=== PATIENT | male | born 1940 | race Caucasian/White ===

== ENCOUNTER 2016-11-25 16:38 | Emergency (ER) | payer MEDICARE, BC ==
[2016-11-25] MEDS ORDERED: SODIUM CHLORIDE 0.9% 1,000 ML IV STA (17:20)
[2016-11-25] MEDS ORDERED: SODIUM CHLORIDE 0.9% 500 ML IV STA (17:20)
[2016-11-25] MEDS ORDERED: MECLIZINE 12.5 MG TAB PO STA (17:20)
[2016-11-25 17:37] LABS: Basophils # (A) 0.1 k/uL (0-0.2); Basophils % (A) 1 %; CH 32.7; CHCM 34.4; Eosinophils # (A) 0.2 k/uL (0-0.7); Eosinophils % (A) 3 %; HCT 41.5 % (39.0-53.0); HDW 2.27; Luc # (Auto) 0.25; Luc % (Auto) 4; Lymphocytes # (A) 1.9 k/uL (1.0-4.8); Lymphocytes % (A) 34 %; MCH 32.3 pg (25.0-35.0); MCHC 33.8 g/dL (31.0-37.0); MCV 95.5 fL (80.0-100.0); Mean Platelet Volume 8.4; Monocytes # (A) 0.4 k/uL (0-1.0); Monocytes % (A) 7 %; Neutrophils # (A) 2.8 k/uL (1.3-7.7); Neutrophils % (A) 50 %; RBC 4.35 m/uL (4.30-5.90); RDW 12.6 % (11.5-15.5); WBC 5.6 k/uL (3.8-10.6); WBC (Perox) 5.64
[2016-11-25 17:50] LABS: ALT 35 U/L (21-72); AST 26 U/L (17-59); Alkaline Phosphatase 72 U/L (38-126); Anion Gap 13 mmol/L; Blood Urea Nitrogen 22 mg/dL (9-20); Calcium 9.5 mg/dL (8.4-10.2); Carbon Dioxide 20 mmol/L (22-30); Chloride 109 mmol/L (98-107); Glucose 111 mg/dL (74-99); Non-African American GFR(MDRD) >60 (>60 ml/min/1.73 sqM); Potassium 3.8 mmol/L (3.5-5.1); Sodium 142 mmol/L (137-145); Total Bilirubin 0.6 mg/dL (0.2-1.3); Total Protein 7.1 g/dL (6.3-8.2)
--- NOTE | 2016-11-25 18:38 | CT ---
EXAMINATION TYPE: CT brain wo con DATE OF EXAM: 11/25/2016 6:11 PM COMPARISON: NONE HISTORY: Patient appears confused CT DLP: 1257 mGycm Automated exposure control for dose reduction was used. FINDINGS: There is mild cerebral cortical atrophy. There is no mass effect nor midline shift. There is no sign of intracranial hemorrhage. The calvarium is intact. IMPRESSION: Mild atrophy. Otherwise negative CT scan of the brain.
--- NOTE | 2016-11-25 18:41 | XR ---
EXAMINATION TYPE: XR chest 2V DATE OF EXAM: 11/25/2016 6:12 PM COMPARISON: 11/20/2009 HISTORY: Weakness TECHNIQUE: Frontal and lateral views of the chest are obtained. FINDINGS: There is no heart failure nor confluent pneumonic infiltrate. There are no hilar masses. C ostophrenic angles are clear. Bony thorax is intact. IMPRESSION: No active cardiopulmonary disease. No change.
[2016-11-25] MEDS ORDERED: ONDANSETRON 4 MG/2 ML VIAL IVP STA (18:55)
--- NOTE | 2016-11-25 19:14 | ED ---
Dizziness HPI - General Chief Complaint: Dizziness Stated Complaint: faint, weak Time Seen by Provider: 11/25/16 17:19 Source: patient Mode of arrival: wheelchair Limitations: no limitations - History of Present Illness Initial Comments: Every 6 years old gentleman presented with being dizzy for about an hour now than he had dull a lot of cold sweats at a board [employer] denies any chest pain or shortness of breath no abdominal pain he feels nauseous and as a matter of fact he threw up couple times in the ER he feels quite weak weakness is not focal if weeks feels weak all over there were no recent changes in medication 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 the he denies any extreme X denies any extreme exertion no sinus symptoms of TIA or CVA past medical history is quite unremarkable urinalysis knee surgery and cataract surgery any verification medications - Related Data Home Medications Medication Instructions Recorded Confirmed Aspirin EC [Ecotrin Low Dose] 81 mg PO DAILY 11/25/16 11/25/16 Multivitamins, Thera [Multivitamin 1 tab PO DAILY 11/25/16 11/25/16 (formulary)] Vit C/E/Zn/Coppr/Lutein/Zeaxan 1 cap PO BID 11/25/16 11/25/16 [Preservision Areds 2 Softgel] Previous Rx's Medication Instructions Recorded Amoxicillin 500 mg PO Q8H #30 capsule 11/25/16 Meclizine [Antivert] 12.5 mg PO Q12H PRN #15 tablet 11/25/16 Allergies Allergy/AdvReac Type Severity Reaction Status Date / Time No Known Allergies Allergy Verified 11/25/16 17:29 Review of Systems ROS Statement: Those systems with pertinent positive or pertinent negative responses have been documented in the HPI. ROS Other: All systems not noted in ROS Statement are negative. Past Medical History Past Medical History: No Reported History History of Any Multi-Drug Resistant Organisms: None Reported Additional Past Surgical History / Comment(s): Cataracts Past Psychological History: No Psychological Hx Reported Smoking Status: Former smoker Past Alcohol Use History: None Reported Past Drug Use History: None Reported General Exam - General Exam Comments Initial Comments: General: The patient is awake and alert, in no distress, and does not appear acutely ill. Skin: Skin is warm and dry and no rashes or lesions are noted. Eye: Pupils are equal, round and reactive to light, extra-ocular movements are intact; there is normal conjunctiva bilaterally. Ears, nose, mouth and throat: There are moist mucous membranes and no oral lesions. Neck: The neck is supple, there is no tenderness or JVD. Cardiovascular: There is a regular rate and rhythm. No murmur, rub or gallop is appreciated. Respiratory: To auscultation bilateral, no wheezing no rhonchi no distress respiratory dunham noticed Gastrointestinal: Soft, non-distended, non-tender abdomen without masses or organomegaly noted. There is no rebound or guarding present. Bowel sounds are unremarkable. Back: There is no tenderness to palpation in the midline. There is no obvious deformity. Musculoskeletal: Normal ROM, no tenderness, There is no pedal edema. There is no calf tenderness or swelling. No cords were appreciated. Neurological: CN II-XII intact, Cranial nerves III through XII are intact. There are no obvious motor or sensory deficits. Coordination appears grossly intact. Speech is normal. Psychiatric: Cooperative, appropriate mood & affect, normal judgment. Limitations: no limitations Course Vital Signs 11/25/16 11/25/16 11/25/16 16:43 18:00 18:52 Temperature 96.9 F L Pulse Rate 75 57 L 56 L Pulse Rate [ Sitting Pulse Oximetery] Pulse Rate [ Standing Pulse Oximetery] Pulse Rate [ Supine Pulse Oximetery] Respiratory 18 18 18 Rate Blood Pressure 111/62 152/72 Blood Pressure [Right Arm Sitting] Blood Pressure [Right Arm Standing] Blood Pressure [Right Arm Supine] O2 Sat by Pulse 98 97 98 Oximetry 11/25/16 11/25/16 19:15 20:44 Temperature 97.1 F L Pulse Rate 54 L Pulse Rate [ 57 L Sitting Pulse Oximetery] Pulse Rate [ 62 Standing Pulse Oximetery] Pulse Rate [ 50 L Supine Pulse Oximetery] Respiratory 16 16 Rate Blood Pressure 127/60 Blood Pressure 123/65 [Right Arm Sitting] Blood Pressure 128/69 [Right Arm Standing] Blood Pressure 118/60 [Right Arm Supine] O2 Sat by Pulse 97 96 Oximetry B was reassessed at term his CBC, compressive metabolic panel, troponin, EKG, head CT, chest x-ray all looked good on examination he is tender over sinuses tympanic membrane on the right side has a bit of erythema about him on some antibiotics I he ambulated well in the ER he feels back to himself there are no symptoms of a discharge him home with his - Reevaluation(s) Reevaluation #1: 11/25/16 20:52 At 2049 to leave feels quite he ambulated well in the ER and he wants to go, will follow-up with his family doctor or return to ER if symptoms get worse EKG Findings - EKG Comments: EKG Findings:: EKG is a sinus bradycardia ventricular rate is 59 WI interval is 164 QRS duration is 94 QT/QTc is 462/7457 review of this EKG reveals some flattening of the leads [address] elevation and no ST depression noticed in this EKG Medical Decision Making - Lab Data Result diagrams: 11/25/16 17:08 11/25/16 17:08 Lab Results 11/25/16 11/25/16 11/25/16 Range/Units 17:08 17:08 17:08 WBC 5.6 (3.8-10.6) k/uL RBC 4.35 (4.30-5.90) m/uL Hgb 14.0 (13.0-17.5) gm/dL Hct 41.5 (39.0-53.0) % MCV 95.5 (80.0-100.0) fL MCH 32.3 (25.0-35.0) pg MCHC 33.8 (31.0-37.0) g/dL RDW 12.6 (11.5-15.5) % Plt Count 212 (150-450) k/uL Neutrophils % 50 % Lymphocytes % 34 % Monocytes % 7 % Eosinophils % 3 % Basophils % 1 % Neutrophils # 2.8 (1.3-7.7) k/uL Lymphocytes # 1.9 (1.0-4.8) k/uL Monocytes # 0.4 (0-1.0) k/uL Eosinophils # 0.2 (0-0.7) k/uL Basophils # 0.1 (0-0.2) k/uL Sodium 142 (137-145) mmol/L Potassium 3.8 (3.5-5.1) mmol/L Chloride 109 H (98-107) mmol/L Carbon Dioxide 20 L (22-30) mmol/L Anion Gap 13 mmol/L BUN 22 H (9-20) mg/dL Creatinine 0.90 (0.66-1.25) mg/dL Est GFR (MDRD) Af Amer >60 (>60 ml/min/1.73 sqM) Est GFR (MDRD) Non-Af >60 (>60 ml/min/1.73 sqM) Glucose 111 H (74-99) mg/dL Calcium 9.5 (8.4-10.2) mg/dL Total Bilirubin 0.6 (0.2-1.3) mg/dL AST 26 (17-59) U/L ALT 35 (21-72) U/L Alkaline Phosphatase 72 (38-126) U/L Troponin I <0.012 (0.000-0.034) ng/mL Total Protein 7.1 (6.3-8.2) g/dL Albumin 4.3 (3.5-5.0) g/dL Disposition Clinical Impression: Dizziness, Sinusitis Disposition: HOME SELF-CARE Condition: Good Instructions: Dizziness (ED) Prescriptions: Amoxicillin 500 mg PO Q8H #30 capsule Meclizine [Antivert] 12.5 mg PO Q12H PRN #15 tablet PRN Reason: dizzyness
[2016-11-25 19:18] VITALS: RESP 16
[2016-11-25 20:45] VITALS: BP 127/60; PULSE 54; TEMP 97.1
[2016-11-26 07:13] LABS: Glucose,Whole Blood 114 mg/dL (75-99)
== END 2016-11-25 21:15 | disposition home or self-care (01) ==
LOC: EC 16:38
DX: R42 Dizziness and giddiness (principal); J32.9 Chronic sinusitis, unspecified; Z79.82 Long term (current) use of aspirin; Z87.891 Personal history of nicotine dependence
CPT/HCPCS: 36415; 93005; 80053; 84484; 85025; 71020; 70450; 99284; 96374; 96361; J2405

== ENCOUNTER 2017-02-15 07:47 | Emergency (ER) | payer MEDICARE, BC ==
[2017-02-15 12:17] LABS: ALT 35 U/L (21-72); AST 24 U/L (17-59); Alcohol <10 mg/dL; Alkaline Phosphatase 88 U/L (38-126); Anion Gap 14 mmol/L; Blood Urea Nitrogen 17 mg/dL (9-20); Calcium 9.4 mg/dL (8.4-10.2); Carbon Dioxide 17 mmol/L (22-30); Chloride 112 mmol/L (98-107); Glucose 174 mg/dL (74-99); Non-African American GFR(MDRD) >60 (>60 ml/min/1.73 sqM); Sodium 143 mmol/L (137-145); Total Bilirubin 0.6 mg/dL (0.2-1.3); Total Protein 7.4 g/dL (6.3-8.2)
[2017-02-15 12:18] LABS: Basophils # (A) 0.1 k/uL (0-0.2); Basophils % (A) 1 %; CH 32.1; Eosinophils # (A) 0.3 k/uL (0-0.7); Eosinophils % (A) 3 %; HDW 2.32; HGB 15.1 gm/dL (13.0-17.5); Luc # (Auto) 0.37; Luc % (Auto) 4; Lymphocytes # (A) 2.6 k/uL (1.0-4.8); Lymphocytes % (A) 28 %; MCH 33.4 pg (25.0-35.0); MCHC 35.1 g/dL (31.0-37.0); Mean Platelet Volume 9.2; Monocytes # (A) 0.5 k/uL (0-1.0); Monocytes % (A) 6 %; Neutrophils # (A) 5.5 k/uL (1.3-7.7); Neutrophils % (A) 59 %; RBC 4.53 m/uL (4.30-5.90); WBC 9.4 k/uL (3.8-10.6); WBC (Perox) 9.14
[2017-02-15 12:19] LABS: Partial Thromboplastin Time 22.5 sec (22.0-30.0); Prothrombin Time 10.5 sec (9.0-12.0)
[2017-02-15 12:24] LABS: Creatine Kinase 217 U/L (55-170); Creatine Kinase MB 2.1 ng/mL (0.0-2.4); Troponin I <0.012 ng/mL (0.000-0.034)
[2017-02-15 12:25] LABS: Amylase 58 U/L (30-110)
--- NOTE | 2017-02-15 13:10 | XR ---
AP pelvis HISTORY: Trauma and pain Single frontal view of the pelvis correlated to prior exam CT same day Patient is rotated. No fracture or dislocation is evident. IMPRESSION: No acute abnormality
--- NOTE | 2017-02-15 13:16 | XR ---
Right shoulder HISTORY: Trauma and pain, interval reduction Single frontal view of the right shoulder correlated to prior exam on same date earlier time. There is been interval reduction of patient's right shoulder dislocation. IMPRESSION: Interval reduction in the single view
--- NOTE | 2017-02-15 13:17 | XR ---
EXAMINATION TYPE: XR chest 1V portable DATE OF EXAM: 02/15/2017 COMPARISON: Prior chest x-ray 11/25/2016 HISTORY: Trauma and pain TECHNIQUE: Single frontal view of the chest is obtained. FINDINGS: There is a right shoulder dislocation. There are overlying cardiac leads. No pneumothorax or pleural effusion. Cardiac mediastinal silhouette, pulmonary vascularity and eugene within normal johnson its accounting for differences in technique and rotation. IMPRESSION: No acute process.
--- NOTE | 2017-02-15 13:19 | XR ---
Right shoulder HISTORY: Trauma and pain, post reduction Single frontal view of the shoulder submitted and correlated to chest x-ray on same date earlier time Anterior shoulder dislocation is present and is inferiorly positioned. There are overlying cardiac le ads. Arthropathy present in the acromion clavicular joint, there may be old fracture, ossific density present superior to the acromion clavicular joint. Right lung apex as visualized is normal. Arthropa thy present in the bony labrum. IMPRESSION: Anterior shoulder dislocation
--- NOTE | 2017-02-15 14:47 | CT ---
EXAMINATION TYPE: CT brain lobo [place] DATE OF EXAM: 02/15/2017 COMPARISON: Previous study dated 11/25/2016. HISTORY: Fall CT DLP: 2123 mGycm Automated exposure control for dose reduction was used. TECHNIQUE: CT scan of the head and cervical spine are performed without contrast. FINDINGS: BRAIN: There are generalized changes of sulcal prominence and ventriculomegaly, compatible with atrop hic change. There is periventricular white matter lucency, compatible with chronic white matter ische majo change. There is no acute focal lesion, mass effect or midline shift identified. I do not see abilio dence of intracranial blood. There is chronic mucoperiosteal thickening involving the anterior ethmoid air cells as well as the le ft maxillary and to lesser extent the right maxillary sinus. IMPRESSION: 1. NO ACUTE INTRACRANIAL ABNORMALITY. 2. ATROPHIC CHANGE. 3. CHRONIC WHITE MATTER ISCHEMIC CHANGE. 4. MILD, CHRONIC MUCOPERIOSTEAL THICKENING INVOLVING ETHMOID AND MAXILLARY SINUSES. CERVICAL SPINE: There is some atelectasis in the visualized portions of the lungs. Prevertebral soft tissues are normal. Vertebral body height and alignment are maintained. Atlantoaxial relationships are normal. There is diffuse degenerative disc disease and hypertrophic spondylosis most marked at C5-6 and C6-7 with relative sparing of C2-3. There is diffuse uncovertebral joint disease. There is only mild facet arthropathy. No fracture is seen. There is no significant compressive discopathy. IMPRESSION: 1. NO ACUTE OSSEOUS LESION. 2. DEGENERATIVE CHANGE.
--- NOTE | 2017-02-15 14:53 | CT ---
EXAMINATION TYPE: CT ChestAbdPelvis w con DATE OF EXAM: 02/15/2017 COMPARISON: NONE HISTORY: Fall CT DLP: 2150 mGycm Automated exposure control for dose reduction was used. TECHNIQUE: Helical acquisition through the abdomen and pelvis was obtained without oral contrast but following the intravenous administration of 100 mL of Omnipaque 300. The data was formatted in the a xial, coronal and sagittal projections. FINDINGS: There is some dependent atelectasis within the lungs. There is no definite lung contusion. There is no pneumothorax. There is no significant axillary or hilar adenopathy. There is some shotty mediastinal and aortopulmo nary window adenopathy. There is no pleural or pericardial fluid. The heart is not enlarged. There is mild coronary artery ca lcification as well as other vascular calcifications. The aorta is not enlarged. Within the abdomen, the liver, spleen and gallbladder are normal. Both adrenal glands are normal. Both kidneys demonstrate function and appear morphologically normal. The pancreas is unremarkable. There is no significant retroperitoneal, iliac or inguinal adenopathy. There is mild calcification of the prostate. The bladder wall is mildly thickened. The bladder, however, is not distended. There is no significant diverticular change and there is no radiographic evidence of diverticulitis. The appendix is normal. Small bowel loops are normal. No free fluid and no free air is seen. There is hypertrophic spondylosis within the dorsal spine. There is facet arthropathy in the lower ryley mbar spine. No spinal fracture or pelvic fracture is seen. No rib fractures are seen. There is degene rative changes in the hips. IMPRESSION: NO ACUTE POSTTRAUMATIC ABNORMALITY.
[2017-02-16 07:45] LABS: Glucose,Whole Blood 191 mg/dL (75-99)
== END 2017-02-15 11:55 | disposition home or self-care (01) ==
LOC: EC 07:47
DX: S43.011A Anterior subluxation of right humerus, initial encounter (principal); S06.0X9A Concussion with loss of consciousness of unspecified duration, initial encounter; S80.811A Abrasion, right lower leg, initial encounter; S80.812A Abrasion, left lower leg, initial encounter; R61 Generalized hyperhidrosis; W11.XXXA Fall on and from ladder, initial encounter
CPT/HCPCS: 99284 ×2; 23650 ×2; 99152 ×2; 99153 ×2; 36415; 93005; 86900; 86901; 80053; 82150; 82550; 82553; 83605; 83690; 84484; 85025; 85610; 85730; 86850; 80320; 71010; 72170; 73020; 72125; 70450; 71260; 74177; L3670; Q9967

== ENCOUNTER 2019-04-04 08:40 | Observation (INO) | payer MEDICARE, BC ==
[2019-04-04] MEDS ORDERED: NITROGLYCERIN OINT 1 INCH/GM PACKET TOPICAL STA (09:21)
[2019-04-04] MEDS ORDERED: ASPIRIN 81 MG PO STA (09:21)
--- NOTE | 2019-04-04 09:26 | ED ---
General Adult HPI - General Chief complaint: Chest Pain Stated complaint: chest pain Time Seen by Provider: 04/04/19 08:45 Source: patient, RN notes reviewed Mode of arrival: wheelchair Limitations: no limitations - History of Present Illness Initial comments: This is a 78-year-old male who presents emergency Department with no significant past medical history or family history. Patient states he was going to work this morning about 7:00 he started having significant right-sided chest pain he states he became very sweaty and mildly nauseated. Patient denies any radiation of the pain. Patient denies any shortness of breath or difficulty breathing. Patient states he got to work got out of his car resting up against the car drink a little water and the pain slowly subsided to the point where it's only mild now. Patient states the sweating stopped shortly thereafter. Patient denies any lightheadedness dizziness or near syncopal episode. Patient denies headache patient denies numbness weakness. Patient denies any abdominal pain patient denies nausea vomiting diarrhea. Patient denies any recent fever chills or cough. - Related Data Home Medications Medication Instructions Recorded Confirmed Aspirin EC [Ecotrin Low Dose] 81 mg PO DAILY 11/25/16 04/04/19 Vit C/E/Zn/Coppr/Lutein/Zeaxan 1 cap PO BID 11/25/16 04/04/19 [Preservision Areds 2 Softgel] Allergies Allergy/AdvReac Type Severity Reaction Status Date / Time No Known Allergies Allergy Verified 04/04/19 09:29 Review of Systems ROS Statement: Those systems with pertinent positive or pertinent negative responses have been documented in the HPI. ROS Other: All systems not noted in ROS Statement are negative. Past Medical History Past Medical History: No Reported History History of Any Multi-Drug Resistant Organisms: MRSA Date of last positivie culture/infection: LT axilla (2014?) Additional Past Surgical History / Comment(s): Cataracts Past Psychological History: No Psychological Hx Reported Smoking Status: Former smoker Past Alcohol Use History: Occasional Past Drug Use History: None Reported General Exam - General Exam Comments Initial Comments: GENERAL: Patient is well-developed and well-nourished. Patient is nontoxic and well-hyd rated and is in mild distress. ENT: Neck is soft and supple. No significant lymphadenopathy is noted. Oropharynx is clear. Moist mucous membranes. Neck has full range of motion without eliciting any pain. EYES: The sclera were anicteric and conjunctiva were pink and moist. Extraocular movements were intact and pupils were equal round and reactive to light. Eyelids were unremarkable. PULMONARY: Unlabored respirations. Good breath sounds bilaterally. No audible rales rhonchi or wheezing was noted. CARDIOVASCULAR: There is a regular rate and rhythm without any murmurs gallops or rubs. ABDOMEN: Soft and nontender with normal bowel sounds. No palpable organomegaly was noted. There is no palpable pulsatile mass. SKIN: Skin is clear with no lesions or rashes and otherwise unremarkable. NEUROLOGIC: Patient is alert and oriented x3. Cranial nerves II through XII are grossly in tact. Motor and sensory are also intact. Normal speech, volume and content. Symmetrical smile. MUSCULOSKELETAL: Normal extremities with adequate strength and full range of motion. No lower extremity swelling or edema. No calf tenderness. LYMPHATICS: No significant lymphadenopathy is noted PSYCHIATRIC: Normal psychiatric evaluation. Limitations: no limitations Course Vital Signs 04/04/19 04/04/19 08:45 09:10 Temperature 97.8 F Pulse Rate 59 L 55 L Respiratory 18 18 Rate Blood Pressure 163/90 153/84 O2 Sat by Pulse 98 98 Oximetry Medical Decision Making - Medical Decision Making EKG shows sinus bradycardia 50 bpm DE interval is 166 dresses 92 QT interval is 438 QTC is 429 per patient's EKG shows no ST segment elevation or depression. Chest x-ray shows no acute abnormality. Patient's been chest pain-free since he came into the emergency department. Started the patient heparin because of his unstable angina diagnosis. I spoke with Dr. Bonner he agreed to admit the patient admitted the patient wrote admitting orders I consult cardiology. I continued heparin and aspirin Nitropaste on the floor. - Lab Data Result diagrams: 04/04/19 09:00 04/04/19 09:00 Lab Results 04/04/19 04/04/19 04/04/19 Range/Units 09:00 09:00 09:00 WBC 5.4 (3.8-10.6) k/uL RBC 4.01 L (4.30-5.90) m/uL Hgb 13.0 (13.0-17.5) gm/dL Hct 39.6 (39.0-53.0) % MCV 98.8 (80.0-100.0) fL MCH 32.5 (25.0-35.0) pg MCHC 32.9 (31.0-37.0) g/dL RDW 14.5 (11.5-15.5) % Plt Count 201 (150-450) k/uL Neutrophils % 70 % Lymphocytes % 19 % Monocytes % 4 % Eosinophils % 4 % Basophils % 1 % Neutrophils # 3.8 (1.3-7.7) k/uL Lymphocytes # 1.0 (1.0-4.8) k/uL Monocytes # 0.2 (0-1.0) k/uL Eosinophils # 0.2 (0-0.7) k/uL Basophils # 0.1 (0-0.2) k/uL PT 10.6 (9.0-12.0) sec INR 1.0 (<1.2) APTT 24.9 (22.0-30.0) sec Sodium 140 (137-145) mmol/L Potassium 4.4 (3.5-5.1) mmol/L Chloride 109 H (98-107) mmol/L Carbon Dioxide 20 L (22-30) mmol/L Anion Gap 11 mmol/L BUN 17 (9-20) mg/dL Creatinine 0.87 (0.66-1.25) mg/dL Est GFR (CKD-EPI)AfAm >90 (>60 ml/min/1.73 sqM) Est GFR (CKD-EPI)NonAf 84 (>60 ml/min/1.73 sqM) Glucose 112 H (74-99) mg/dL Calcium 9.1 (8.4-10.2) mg/dL Magnesium 2.0 (1.6-2.3) mg/dL Total Bilirubin 0.7 (0.2-1.3) mg/dL AST 36 (17-59) U/L ALT 33 (21-72) U/L Alkaline Phosphatase 71 (38-126) U/L Troponin I (0.000-0.034) ng/mL Total Protein 7.2 (6.3-8.2) g/dL Albumin 4.1 (3.5-5.0) g/dL 04/04/19 Range/Units 09:00 WBC (3.8-10.6) k/uL RBC (4.30-5.90) m/uL Hgb (13.0-17.5) gm/dL Hct (39.0-53.0) % MCV (80.0-100.0) fL MCH (25.0-35.0) pg MCHC (31.0-37.0) g/dL RDW (11.5-15.5) % Plt Count (150-450) k/uL Neutrophils % % Lymphocytes % % Monocytes % % Eosinophils % % Basophils % % Neutrophils # (1.3-7.7) k/uL Lymphocytes # (1.0-4.8) k/uL Monocytes # (0-1.0) k/uL Eosinophils # (0-0.7) k/uL Basophils # (0-0.2) k/uL PT (9.0-12.0) sec INR (<1.2) APTT (22.0-30.0) sec Sodium (137-145) mmol/L Potassium (3.5-5.1) mmol/L Chloride (98-107) mmol/L Carbon Dioxide (22-30) mmol/L Anion Gap mmol/L BUN (9-20) mg/dL Creatinine (0.66-1.25) mg/dL Est GFR (CKD-EPI)AfAm (>60 ml/min/1.73 sqM) Est GFR (CKD-EPI)NonAf (>60 ml/min/1.73 sqM) Glucose (74-99) mg/dL Calcium (8.4-10.2) mg/dL Magnesium (1.6-2.3) mg/dL Total Bilirubin (0.2-1.3) mg/dL AST (17-59) U/L ALT (21-72) U/L Alkaline Phosphatase (38-126) U/L Troponin I <0.012 (0.000-0.034) ng/mL Total Protein (6.3-8.2) g/dL Albumin (3.5-5.0) g/dL Critical Care Time Critical Care Time: Yes Total Critical Care Time: 35 Disposition Clinical Impression: Unstable angina pectoris Disposition: ADMITTED IP TO THIS HOSP Referrals: Cesar Bonner Jr, DO [Primary Care Provider] - 1-2 days Time of Disposition: 11:23
--- NOTE | 2019-04-04 09:51 | XR ---
EXAMINATION TYPE: XR chest 2V DATE OF EXAM: 04/04/2019 COMPARISON: 02/15/2017 TECHNIQUE: PA and lateral views submitted. HISTORY: Chest pain FINDINGS: The lungs are clear and there is no pneumothorax, pleural effusion, or focal pneumonia. Arthropathy of the shoulders. No overt failure. Hypertrophic and degenerative changes spine. Mild hyperinflation correlate for COPD. IMPRESSION: 1. No acute process.
[2019-04-04 09:52] LABS: Basophils # (A) 0.1 k/uL (0-0.2); Basophils % (A) 1 %; Eosinophils # (A) 0.2 k/uL (0-0.7); Eosinophils % (A) 4 %; HCT 39.6 % (39.0-53.0); Lymphocytes % (A) 19 %; MCH 32.5 pg (25.0-35.0); MCHC 32.9 g/dL (31.0-37.0); MCV 98.8 fL (80.0-100.0); Mean Platelet Volume 8.6; Monocytes # (A) 0.2 k/uL (0-1.0); Monocytes % (A) 4 %; Neutrophils # (A) 3.8 k/uL (1.3-7.7); Neutrophils % (A) 70 %; Platelet Count 201 k/uL (150-450); RBC 4.01 m/uL (4.30-5.90); RDW 14.5 % (11.5-15.5); WBC 5.4 k/uL (3.8-10.6)
[2019-04-04 10:03] LABS: ALT 33 U/L (21-72); AST 36 U/L (17-59); African American GFR (CKD) >90 (>60 ml/min/1.73 sqM); Albumin 4.1 g/dL (3.5-5.0); Alkaline Phosphatase 71 U/L (38-126); Anion Gap 11 mmol/L; Blood Urea Nitrogen 17 mg/dL (9-20); Calcium 9.1 mg/dL (8.4-10.2); Carbon Dioxide 20 mmol/L (22-30); Chloride 109 mmol/L (98-107); Glucose 112 mg/dL (74-99); Potassium 4.4 mmol/L (3.5-5.1); Sodium 140 mmol/L (137-145); Total Bilirubin 0.7 mg/dL (0.2-1.3); Total Protein 7.2 g/dL (6.3-8.2)
[2019-04-04 10:11] LABS: Partial Thromboplastin Time 24.9 sec (22.0-30.0); Prothrombin Time 10.6 sec (9.0-12.0)
[2019-04-04] MEDS ORDERED: HEPARIN SODIUM,PORCINE 5,000 UNIT/ML 1 ML VIAL IV ONE (11:24)
[2019-04-04] MEDS ORDERED: NITROGLYCERIN SL TABS 0.4 MG TAB SUBLINGUAL PRN (11:25)
[2019-04-04] MEDS ORDERED: HEPARIN SOD,PORK IN 0.45% NACL 25,000 UNIT in 0.45% NACL 1 250ML.BAG IV SCH (11:30)
[2019-04-04] MEDS: NITROGLYCERIN OINT 1 INCH/GM PACKET TOPICAL SCH ×2 (12:08→19:18)
[2019-04-04 19:50] VITALS: RESP 18
[2019-04-05] MEDS ORDERED: ACETAMINOPHEN TAB 325 MG TAB PO STA (00:54)
[2019-04-05] MEDS: NITROGLYCERIN OINT 1 INCH/GM PACKET TOPICAL SCH ×2 (00:55→03:19)
[2019-04-05 02:50] LABS: Cholesterol 149 mg/dL (<200); HDL Cholesterol 41 mg/dL (40-60); LDL Cholesterol,Calculated 78 mg/dL (0-99); Triglycerides 148 mg/dL (<150)
[2019-04-05] MEDS ORDERED: DOBUTamine DRIP for NUC MED 500 MG in DEXTROSE/WATER 1 250ML.BAG IV ONE (08:53)
[2019-04-05] MEDS ORDERED: ASPIRIN 325 MG TAB PO SCH (09:00)
--- NOTE | 2019-04-05 10:05 | P.CRDCN ---
History of Present Illness History of present illness: This is a pleasant 78-year-old [facility] male with no significant past medical history. He denies hypertension, dyslipidemia, diabetes mellitus or coronary artery disease. 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 His brother has suffered 3 VA's in his 60's and 70's. We have been asked to see him in consultation for chest pain. He states yesterday while at work he was driving around the job site and he felt a sharp pain in the left precordial region that lasted a minute or so. He took a few deep breaths and it subsided. Then a few minutes later he again felt a sharp pain in the mid-sternal region much worse in intensity associated with shortness of breath and diaphoresis. Denies associated dizziness, palpitations, nausea or vomiting. He drove up to the main office, drank a bottle of water and the pain subsided. He did have one reoccurrence through the night while he was sitting up in the chair. Seen and examined in no acute distress. No active chest pain, shortness of breath, dizziness, palpitations, nausea, vomiting or diaphoresis. EKG reveals sinus bradycardia no acute ST or T wave abnormalities noted. Chest x-ray is negative for an acute cardiopulmonary process. Laboratory data reviewed, cardiac enzymes negative 3, LDL 78. Current cardiac medications include aspirin 81 mg daily. At the time of my exam: CONSTITUTIONAL: Denies fever. Denies chills. EYES: Denies blurred vision. Denies vision changes. Denies eye pain. EARS, NOSE, MOUTH & THROAT: Denies headache. Denies sore throat. Denies ear pain. CARDIOVASCULAR: Denies chest pain. Denies shortness of breath. Denies orthopnea. Denies PND. Denies palpitations. RESPIRATORY: Denies cough. GASTROINTESTINAL: Denies abdominal pain. Denies diarrhea. Denies constipation. Denies nausea. Denies vomiting. MUSCULOSKELETAL: Denies myalgias. INTEGUMENTARY: Denies pruitis. Denies rash. NEUROLOGIC: Denies numbness. Denies tingling. Denies weakness. PSYCHIATRIC: Denies anxiety. Denies depression. ENDOCRINE: Denies fatigue. Denies weight change. Denies polydipsia. Denies polyurina. GENITOURINARY: Denies burning, hematuria or urgency with micturation. HEMATOLOGIC: Denies history of anemia. Denies bleeding. Blood pressure 123/72 heart rate 53 afebrile maintaining oxygen saturation on room air GENERAL: This is a 78-year-old male in no apparent distress at the time of my examination. HEENT: Head is atraumatic, normocephalic. Pupils are equal, round. Sclerae anicteric. Conjunctivae are clear. Mucous membranes of the mouth are moist. Neck is supple. There is no jugular venous distention. No carotid bruit is heard. LUNGS: Clear to auscultation no wheezes, rales or rhonchi. No chest wall tender ness is noted on palpation or with deep breathing. HEART: Regular rate and rhythm without murmurs, rubs or gallops. S1 and S2 heard. ABDOMEN: Soft, nontender. Bowel sounds are heard. No organomegaly noted. EXTREMITIES: No evidence of peripheral edema and no calf tenderness noted. VASCULAR: Radial and dorsalis pedis pulses palpated, no evidence of clubbing. NEUROLOGIC: Patient is awake, alert and oriented x3. ASSESSMENT Chest pain, atypical. An acute coronary event has been ruled out. PLAN An acute coronary event has ruled out. Check d-dimer. Obtain 2-D echocardiogram and Doppler study to assess cardiac structure and function. Perform dobutamine stress echocardiogram to assess for stress-induced ischemia. If diagnostic testing is normal he may be discharged from a cardiac perspective. There have been some readings of elevated blood pressure in the emergency department. We recommend he obtain a blood pressure cuff check his blood pressures at home at different times throughout the day and bring those readings to his follow-up appointment. Should follow-up with Dr. Sheppard in 2-3 weeks. Thank you kindly for this consultation. Nurse Practitioner note has been reviewed, I agree with a documented findings and plan of care. Patient was seen and examined. Past Medical History Past Medical History: No Reported History History of Any Multi-Drug Resistant Organisms: MRSA Date of last positivie culture/infection: 2014 MDRO Source:: left axilla Additional Past Surgical History / Comment(s): Cataracts Past Anesthesia/Blood Transfusion Reactions: No Reported Reaction Past Psychological History: No Psychological Hx Reported Smoking Status: Former smoker Past Alcohol Use History: Daily Additional Past Alcohol Use History / Comment(s): pt states he drinks 2-3 mixed drinks per day of rum and coke Past Drug Use History: None Reported - Past Family History Brother(s) Family Medical History: Myocardial Infarction ([place]) Father History Unknown: Yes Family Medical History: No Reported History Additional Family Medical History / Comment(s): of old age Mother Family Medical History: No Reported History Medications and Allergies Home Medications Medication Instructions Recorded Confirmed Type Aspirin EC [Ecotrin Low Dose] 81 mg PO DAILY 11/25/16 04/04/19 History Vit C/E/Zn/Coppr/Lutein/Zeaxan 1 cap PO BID 11/25/16 04/04/19 History [Preservision Areds 2 Softgel] Allergies Allergy/AdvReac Type Severity Reaction Status Date / Time No Known Allergies Allergy Verified 04/04/19 09:29 Physical Exam Vitals: Vital Signs Temp Pulse Pulse Resp BP BP Pulse Ox 04/05/19 04:00 98.1 F 64 18 137/72 99 04/05/19 00:00 97.6 F 58 L 18 138/61 97 04/04/19 19:49 98 F 61 18 130/65 95 04/04/19 15:33 97.6 F 61 19 146/73 97 04/04/19 13:03 97.4 F L 52 L 18 140/71 98 04/04/19 12:14 52 L 18 156/87 98 04/04/19 09:10 55 L 18 153/84 98 04/04/19 08:45 97.8 F 59 L 18 163/90 98 Intake and Output 04/04/19 04/05/19 04/05/19 22:59 06:59 14:59 Other: Voiding Method Toilet Toilet # Voids 1 2 Results 04/04/19 09:00 04/04/19 09:00 Cardiac Enzymes 04/04/19 04/04/19 04/04/19 Range/Units 09:00 09:00 12:42 AST 36 (17-59) U/L Troponin I <0.012 <0.012 (0.000-0.034) ng/mL 04/04/19 Range/Units 19:17 AST (17-59) U/L Troponin I <0.012 (0.000-0.034) ng/mL Coagulation 04/04/19 04/04/19 04/05/19 Range/Units 09:00 19:17 02:06 PT 10.6 (9.0-12.0) sec APTT 24.9 44.2 H 52.2 H (22.0-30.0) sec Lipids 04/05/19 Range/Units 02:06 Triglycerides 148 (<150) mg/dL Cholesterol 149 (<200) mg/dL HDL Cholesterol 41 (40-60) mg/dL CBC 04/04/19 Range/Units 09:00 WBC 5.4 (3.8-10.6) k/uL RBC 4.01 L (4.30-5.90) m/uL Hgb 13.0 (13.0-17.5) gm/dL Hct 39.6 (39.0-53.0) % Plt Count 201 (150-450) k/uL Comprehensive Metabolic Panel 04/04/19 Range/Units 09:00 Sodium 140 (137-145) mmol/L Potassium 4.4 (3.5-5.1) mmol/L Chloride 109 H (98-107) mmol/L Carbon Dioxide 20 L (22-30) mmol/L BUN 17 (9-20) mg/dL Creatinine 0.87 (0.66-1.25) mg/dL Glucose 112 H (74-99) mg/dL Calcium 9.1 (8.4-10.2) mg/dL AST 36 (17-59) U/L ALT 33 (21-72) U/L Alkaline Phosphatase 71 (38-126) U/L Total Protein 7.2 (6.3-8.2) g/dL Albumin 4.1 (3.5-5.0) g/dL Current Medications Generic Name Dose Route Start Last Admin Trade Name Freq PRN Reason Stop Dose Admin Aspirin 325 mg 04/05/19 09:00 Aspirin PO DAILY KALE Nitroglycerin 0.4 mg 04/04/19 11:25 Nitrostat SUBLINGUAL Q5M PRN Chest Pain Intake and Output 04/04/19 04/05/19 04/05/19 22:59 06:59 14:59 Other: Voiding Method Toilet Toilet # Voids 1 2 04/04/19 09:00 04/04/19 09:00
--- NOTE | 2019-04-05 10:23 | ECHOF ---
Referral Reason:cp MEASUREMENTS -------- HEIGHT: 170.2 cm WEIGHT: 99.3 kg BP: 137/72 RVIDd: 3.8 cm (< 3.3) IVSd: 1.5 cm (0.6 - 1.1) LVIDd: 4.3 cm (3.9 - 5.3) LVPWd: 1.3 cm (0.6 - 1.1) IVSs: 1.6 cm LVIDs: 2.6 cm LVPWs: 1.9 cm LAESV Index (A-L): 26.01 ml/m Ao Diam: 2.9 cm (2.0 - 3.7) AV Cusp: 1.3 cm (1.5 - 2.6) LA Diam: 4.1 cm (2.7 - 3.8) EPSS: 0.5 cm MV E Lenin: 0.95 m/s MV DecT: 212 ms MV A Lenin: 1.24 m/s MV E/A Ratio: 0.76 AV maxP.84 mmHg AV meanP.34 mmHg RAP: 5.00 mmHg RVSP: 28.19 mmHg MV EF SLOPE: 110.07 mm/s (70 - 150) MV EXCURSION: 1.59 cm (> 18.000) FINDINGS -------- Sinus rhythm. This was a technically adequate study. There is moderate concentric left ventricular hypertrophy. Overall left ventricular systolic functi on is normal with, an EF between 55 - 60 %. The diastolic filling pattern is normal for the age of the patient. The right ventricle is moderately enlarged. Left atrium is normal size by volume. The right atrial size is normal. Interatrial and interventricular septum intact. The aortic valve is trileaflet and appears structurally normal. There is mild aortic valve sclerosi s without stenosis. There is no evidence of aortic regurgitation. There is no evidence of aortic stenosis. Mild mitral annular calcification present. Mild mitral regurgitation is present. Mild tricuspid regurgitation present. There is no evidence of pulmonary hypertension. The right v entricular systolic pressure, as measured by Doppler, is 28.19mmHg. Trace/mild (physiologic) pulmonic regurgitation. The aortic root size is normal. The inferior vena cava is mildly dilated. There is no pericardial effusion. CONCLUSIONS -------- 1. Sinus rhythm. 2. This was a technically adequate study. 3. There is moderate concentric left ventricular hypertrophy. 4. Overall left ventricular systolic function is normal with, an EF between 55 - 60 %. 5. The diastolic filling pattern is normal for the age of the patient. 6. The right ventricle is moderately enlarged. 7. Left atrium is normal size by volume. 8. The right atrial size is normal. 9. Interatrial and interventricular septum intact. 10. The aortic valve is trileaflet and appears structurally normal. 11. There is mild aortic valve sclerosis without stenosis. 12. There is no evidence of aortic regurgitation. 13. There is no evidence of aortic stenosis. 14. Mild mitral annular calcification present. 15. Mild mitral regurgitation is present. 16. Mild tricuspid regurgitation present. 17. There is no evidence of pulmonary hypertension. 18. The right ventricular systolic pressure, as measured by Doppler, is 28.19mmHg. 19. Trace/mild (physiologic) pulmonic regurgitation. 20. The aortic root size is normal. 21. The inferior vena cava is mildly dilated. 22. There is no pericardial effusion. APPLICATION INFRASTRUCTURE ENGINEER: Judy Lombardo RDCS
[2019-04-05 11:48] VITALS: BP 163/81; PULSE 55; TEMP 97.5
--- NOTE | 2019-04-05 15:38 | P.HPIM ---
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 Denied emesis, diarrhea, fever or chills. Denies syncope, lightheadedness dizziness or focal deficits. Troponins are negative 3, EKG reporting sinus bradycardia. LDL 78. Chest x-ray nonacute. No further chest pain. Placed on heparin drip. Cardiology consulted. Review of Systems ROS Statement: Those systems with pertinent positive or pertinent negative responses have been documented in the HPI. ROS Other: All systems not noted in ROS Statement are negative. Past Medical History Past Medical History: No Reported History History of Any Multi-Drug Resistant Organisms: MRSA Date of last positivie culture/infection: 2014 MDRO Source:: left axilla Additional Past Surgical History / Comment(s): Cataracts Past Anesthesia/Blood Transfusion Reactions: No Reported Reaction Past Psychological History: No Psychological Hx Reported Smoking Status: Former smoker Past Alcohol Use History: Daily Additional Past Alcohol Use History / Comment(s): pt states he drinks 2-3 mixed drinks per day of rum and coke Past Drug Use History: None Reported - Past Family History Brother(s) Family Medical History: Myocardial Infarction ([place]) Father History Unknown: Yes Family Medical History: No Reported History Additional Family Medical History / Comment(s): of old age Mother Family Medical History: No Reported History Medications and Allergies Home Medications Medication Instructions Recorded Confirmed Type Aspirin EC [Ecotrin Low Dose] 81 mg PO DAILY 11/25/16 04/04/19 History Vit C/E/Zn/Coppr/Lutein/Zeaxan 1 cap PO BID 11/25/16 04/04/19 History [Preservision Areds 2 Softgel] Allergies Allergy/AdvReac Type Severity Reaction Status Date / Time No Known Allergies Allergy Verified 04/04/19 09:29 Physical Exam Vitals: Vital Signs Temp Pulse Resp BP Pulse Ox 04/05/19 12:00 55 L 18 04/05/19 11:47 97.5 F L 55 L 18 163/81 96 04/05/19 08:00 18 04/05/19 07:15 98.3 F 53 L 18 123/72 97 04/05/19 04:00 98.1 F 64 18 137/72 99 04/05/19 00:00 97.6 F 58 L 18 138/61 97 04/04/19 19:49 98 F 61 18 130/65 95 04/04/19 15:33 97.6 F 61 19 146/73 97 Intake and Output 04/05/19 04/05/19 04/05/19 06:59 14:59 22:59 Intake Total 240 Balance 240 Intake: Oral 240 Other: Voiding Method Toilet Toilet # Voids 2 1 Weight 99.337 kg PHYSICAL EXAM: VITAL SIGNS: [As above] GENERAL: Sitting up in bed, no acute distress HEENT: Conjunctivae normal. eyes normal. NECK: No JVD. No thyroid enlargement. No LNs CARDIOVASCULAR: S1, S2 regular. No murmur RESPIRATION: Breath sounds diminished in the bases. No rhonchi or crackles. No wheezing. ABDOMEN: Soft, nontender . No guarding. no masses palpable. No ascites, No hepatosplenomegaly.Bowel sounds heard. LEGS: No edema. no swelling PSYCHIATRY: Alert and oriented X3, mood and affect normal. NERVOUS SYSTEM: Cranial N 2-12 grossly normal. Moves all 4 limbs. Diffuse weakness No focal deficits. Strength and sensation grossly intact.. Skin: no lesions, no rash Lymphatic system. No LN neck axilla or groin. Results CBC & Chem 7: 04/04/19 09:00 04/04/19 09:00 Labs: Abnormal Lab Results - Last 24 Hours (Table) 04/04/19 04/05/19 Range/Units 19:17 02:06 APTT 44.2 H 52.2 H (22.0-30.0) sec Thrombosis Risk Factor Assmnt - Choose All That Apply Any of the Below Risk Factors Present?: Yes Each Factor Represents 1 point: Obesity (BMI >25) Other Risk Factors: Yes Each Risk Factor Represents 3 Points: Age 75 years or older Thrombosis Risk Factor Assessment Total Risk Factor Score: 4 Thrombosis Risk Factor Assessment Level: Moderate Risk Assessment and Plan Assessment: Acute chest pain, atypical, acute coronary event ruled out as per cardiology. -Former nicotine dependence Plan: Continue on current medication regime ,monitoring and symptomatic treatment. Home meds have been reviewed and recent. Evaluated by cardiology, dobutamine stress test ordered. Echo reporting moderate concentric left ventricular hypertrophy, normal LV function, EF 55-60%, right ventricle moderately enlarged..Patient will be discharged home in a stable condition with guarded Prognosis pending stress test results ,cardiology clearance and final DC recommendations. Patient also had some elevated blood pressures all in the ER, Face to maintain log of blood pressures every morning and take to follow-up appointments with both PCP and cardiology. Discharge Medication List Aspirin EC [Ecotrin Low Dose] 81 mg PO DAILY 11/25/16 [History] Vit C/E/Zn/Coppr/Lutein/Zeaxan [Preservision Areds 2 Softgel] 1 cap PO BID 11/25/16 [History] The impression and plan of care has been dictated as directed. : I performed a history and examination of this patient, discussed the same with the dictator. I agree with the dictator's note ,documented as a scribe. Any additional findings or plans will be noted. Time taken: 35 min.
--- NOTE | 2019-04-06 13:18 | ECHOS ---
STRESS ECHOCARDIOGRAM DATE OF SERVICE: 04/06/2019 INDICATIONS: Chest pain. MEDICATIONS: Aspirin. BASELINE HEART RATE: 57 BASELINE BLOOD PRESSURE: 149/86 MAXIMUM HEART RATE: 128 MAXIMUM BLOOD PRESSURE: 173/77 85% MPHR: 122 100% MPHR: 144 METS: MAXIMUM STAGE REACHED: TOTAL EXERCISE TIME: CLINICAL INFORMATION: This 78-year-old male patient referred for dobutamine stress echo. Baseline heart rate 57 beats per minute. Baseline blood pressure 149/86 mmHg. Baseline 12-lead ECG shows sinus rhythm with normal cardiac intervals. The patient received dobutamine infusion per protocol. PVCs were noted during dobutamine infusion. There was 0.5 to [address] depression noted during dobutamine infusion. Ventricular couplets were noted during recovery. The baseline 2D echo images showed normal LV size and systolic function without segmental wall motion abnormalities. With dobutamine, there was a stepwise increment in overall LV contractility without development of any wall motion abnormalities. At recovery, regional global LV systolic function remained normal. IMPRESSION: A 0.5 to [address] depression with dobutamine infusion, but without any commensurate wall motion abnormalities consistent with ischemia on stress echo. MMODL / IJN: [id number] /
== END 2019-04-05 15:13 | disposition home or self-care (01) ==
LOC: EC 08:40 → 1SOBS 11:25
PROVIDERS: ADMIT Family Medicine; ATTEND Family Medicine
DX: R07.89 Other chest pain (principal); R03.0 Elevated blood-pressure reading, without diagnosis of hypertension; R11.0 Nausea; R61 Generalized hyperhidrosis; R06.02 Shortness of breath; R00.1 Bradycardia, unspecified; E66.9 Obesity, unspecified; Z68.34 Body mass index [BMI] 34.0-34.9, adult; Z79.82 Long term (current) use of aspirin; Z79.899 Other long term (current) drug therapy; Z86.14 Personal history of Methicillin resistant Staphylococcus aureus infection; Z98.49 Cataract extraction status, unspecified eye; Z87.891 Personal history of nicotine dependence; Z82.49 Family history of ischemic heart disease and other diseases of the circulatory system
CPT/HCPCS: 93005 ×2; 96366 ×2; 96376; 96365; 99291; 36415; 93306; 93351; 85379; 80061; 80053; 83735; 84484; 85025; 85610; 85730 ×2; 71046; G0378 ×2; J1250; J1644 ×2; 99285

== ENCOUNTER 2019-07-09 08:21 | Emergency (ER) | payer MEDICARE, BC ==
[2019-07-09 08:30] VITALS: TEMP 97.8
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
[2019-07-09 09:33] LABS: Basophils # (A) 0.1 k/uL (0-0.2); Basophils % (A) 1 %; Eosinophils # (A) 0.1 k/uL (0-0.7); Eosinophils % (A) 3 %; HCT 41.5 % (39.0-53.0); Lymphocytes # (A) 0.8 k/uL (1.0-4.8); Lymphocytes % (A) 16 %; MCH 32.5 pg (25.0-35.0); MCHC 33.7 g/dL (31.0-37.0); MCV 96.4 fL (80.0-100.0); Monocytes # (A) 0.3 k/uL (0-1.0); Monocytes % (A) 5 %; Neutrophils # (A) 3.6 k/uL (1.3-7.7); Neutrophils % (A) 73 %; Platelet Count 193 k/uL (150-450); RDW 12.6 % (11.5-15.5); WBC 4.9 k/uL (3.8-10.6)
--- NOTE | 2019-07-09 09:55 | XR ---
EXAMINATION TYPE: XR foot complete LT , 3 VIEWS DATE OF EXAM ORDERED: 07/09/2019 HISTORY: Foot pain with cellulitis. COMPARISON: None. FINDINGS: No fracture, dislocation or bony destructive lesion is seen. There is a small plantar calc aneal spur identified. There are mild degenerative changes in the left first MTP joint. IMPRESSION: NO ACUTE OSSEOUS LESION.
[2019-07-09 11:09] VITALS: BP 148/80; PULSE 80; RESP 18
== END 2019-07-09 11:02 | disposition home or self-care (01) ==
LOC: EC 08:21
DX: T65.891A Toxic effect of other specified substances, accidental (unintentional), initial encounter (principal); Z79.82 Long term (current) use of aspirin; Z87.891 Personal history of nicotine dependence; Z86.14 Personal history of Methicillin resistant Staphylococcus aureus infection; X12.XXXA Contact with other hot fluids, initial encounter; Y92.69 Other specified industrial and construction area as the place of occurrence of the external cause
CPT/HCPCS: 36415; 85025; 87040; 99283

== ENCOUNTER → 2019-10-13 | Outpatient (CLI) | payer MEDICARE, BC ==
[2019-10-13 18:44] LABS: African American GFR (CKD) 74.7 (60.0-200.0); Albumin 4.7 g/dL (3.80-4.90); Albumin/Globulin Ratio 2.14 (1.60-3.17); Anion Gap 7.6 mmol/L (4.00-12.00); BUN/Creat Ratio 15.45 Ratio (12.00-20.00); Calcium 9.6 mg/dL (8.7-10.3); Carbon Dioxide 26.4 mmol/L (21.6-31.8); Chol/HDL Ratio 2.45; Globulin 2.2 g/dL (1.6-3.3); Non-African American GFR(CKD) 64.4 (60.0-200.0); Potassium 4.6 mmol/L (3.5-5.5); Total Bilirubin 0.8 mg/dL (0.2-1.2); Total Protein 6.9 g/dL (6.2-8.2)
[2019-10-13 21:52] LABS: Hemoglobin A1C 5.7 % (4.0-6.0)
== END | disposition home or self-care (01) ==
LOC: LABWHC1 13:47
PROVIDERS: ATTEND Internal Medicine Clinical Cardiac Electrophysiology
DX: E78.5 Hyperlipidemia, unspecified (principal)
CPT/HCPCS: 36415; 80053; 80061; 83036

== ENCOUNTER 2020-02-13 14:44 | Emergency (ER) | payer MEDICARE, BC ==
[2020-02-13] MEDS ORDERED: SODIUM CHLORIDE 0.9% 1,000 ML IV STA (15:11)
[2020-02-13] MEDS ORDERED: ASPIRIN 81 MG PO STA (15:11)
--- NOTE | 2020-02-13 15:12 | ED ---
General Adult HPI - General Chief complaint: Dizziness Stated complaint: Chest Pain, Dizziness Time Seen by Provider: 02/13/20 14:56 Source: patient, family Mode of arrival: wheelchair Limitations: no limitations - History of Present Illness Initial comments: Dictation was produced using [employer] dictation software. please excuse any gra mmatical, word or spelling errors. This patient was cared for during a federal and state declared state of emergency secondary to Covid 19 Chief Complaint: 79-year-old male presents with dizziness. History of Present Illness: 79-year-old male presents with dizziness. Patient states his symptoms began several hours ago. He also has some sharp left lateral chest pain is worse with deep inspiration. He had several alcoholic drinks last night. He is accompanied by his daughter at bedside. . Patient states he been feeling, sweaty. Denies any cough. Denies any shortness of edilberto th. Denies any lower extremity pain or swelling. He does report that both of his calves feel slightly tight. The ROS documented in this emergency department record has been reviewed and confirmed by me. Those systems with pertinent positive or negative responses have been documented in the HPI. All other systems are other negative and/or noncontributory. PHYSICAL EXAM: General Impression: Alert and oriented x3, not in acute distress HEENT: Normocephalic atraumatic, extra-ocular movements intact, pupils equal and reactive to light bilaterally, mucous membranes moist. Cardiovascular: Heart regular rate and rhythm Chest: Able to complete full sentences, no retractions, no tachypnea Abdomen: abdomen soft, non-tender, non-distended, no organomegaly Musculoskeletal: Pulses present and equal in all extremities, no peripheral edema Motor: no focal deficits noted Neurological: CN II-XII grossly intact, no focal motor or sensory deficits noted Skin: Intact with no visualized rashes Psych: Normal affect and mood ED course: 79-year-old male presents today with dizziness, and atypical chest pain. Vital signs upon arrival are within acceptable limits. EKG does not show any signs of ischemia or infarction. Laboratory evaluation is benign. Patient given intravenous fluids and antiemetics. Patient reevaluated after short ER observation. Clinical presentation upon reevaluation is benign. Patient is medically stable. He is an Martha with minimal, patient's pain is tolerating oral. Patient's symptoms are likely secondary to excessive EtOH ingestion yesterday. Patient told to hydrate himself well. Advised follow-up with primary care physician. Return parameters discussed. Patient will be discharged. EKG interpretation: Ventricular rate 77, normal sinus rhythm, CO interval 166, QRS 90, QTC 461. No CO prolongation, no QTC prolongation, no ST or T-wave changes noted. Overall, this EKG is unremarkable - Related Data Home Medications Medication Instructions Recorded Confirmed Aspirin EC [Ecotrin Low Dose] 81 mg PO DAILY 11/25/16 04/04/19 Vit C/E/Zn/Coppr/Lutein/Zeaxan 1 cap PO BID 11/25/16 04/04/19 [Preservision Areds 2 Softgel] Previous Rx's Medication Instructions Recorded Ibuprofen 800 mg PO Q6HR PRN #20 tablet 07/09/19 SILVER sulfADIAZINE Cream 1 applic TOPICAL DAILY #25 gram 07/09/19 [Silvadene 1% Cream] Allergies Allergy/AdvReac Type Severity Reaction Status Date / Time No Known Allergies Allergy Verified 02/13/20 14:49 Review of Systems ROS Statement: Those systems with pertinent positive or pertinent negative responses have been documented in the HPI. ROS Other: All systems not noted in ROS Statement are negative. Past Medical History Past Medical History: No Reported History History of Any Multi-Drug Resistant Organisms: MRSA Date of last positivie culture/infection: 2014 MDRO Source:: left axilla Additional Past Surgical History / Comment(s): Cataracts Past Anesthesia/Blood Transfusion Reactions: No Reported Reaction Past Psychological History: No Psychological Hx Reported Smoking Status: Former smoker Past Alcohol Use History: Daily Past Drug Use History: None Reported - Past Family History Brother(s) Family Medical History: Myocardial Infarction ([place]) Father History Unknown: Yes Family Medical History: No Reported History Additional Family Medical History / Comment(s): of old age Mother Family Medical History: No Reported History General Exam Limitations: no limitations Course Vital Signs 02/13/20 14:49 Temperature 98.2 F Pulse Rate 83 Respiratory 18 Rate Blood Pressure 117/65 O2 Sat by Pulse 97 Oximetry Medical Decision Making - Lab Data Result diagrams: 02/13/20 15:14 02/13/20 15:14 Lab Results 02/13/20 02/13/20 02/13/20 Range/Units 15:14 15:14 15:14 WBC 7.1 (3.8-10.6) k/uL RBC 4.26 L (4.30-5.90) m/uL Hgb 13.2 (13.0-17.5) gm/dL Hct 41.3 (39.0-53.0) % MCV 96.9 (80.0-100.0) fL MCH 31.1 (25.0-35.0) pg MCHC 32.1 (31.0-37.0) g/dL RDW 13.6 (11.5-15.5) % Plt Count 226 (150-450) k/uL Neutrophils % 58 % Lymphocytes % 30 % Monocytes % 6 % Eosinophils % 3 % Basophils % 1 % Neutrophils # 4.1 (1.3-7.7) k/uL Lymphocytes # 2.1 (1.0-4.8) k/uL Monocytes # 0.4 (0-1.0) k/uL Eosinophils # 0.2 (0-0.7) k/uL Basophils # 0.1 (0-0.2) k/uL PT 10.4 (9.0-12.0) sec INR 1.0 (<1.2) APTT 21.8 L (22.0-30.0) sec D-Dimer 0.31 (<0.60) mg/L FEU Sodium 141 (137-145) mmol/L Potassium 3.6 (3.5-5.1) mmol/L Chloride 112 H (98-107) mmol/L Carbon Dioxide 18 L (22-30) mmol/L Anion Gap 11 mmol/L BUN 17 (9-20) mg/dL Creatinine 0.88 (0.66-1.25) mg/dL Est GFR (CKD-EPI)AfAm >90 (>60 ml/min/1.73 sqM) Est GFR (CKD-EPI)NonAf 83 (>60 ml/min/1.73 sqM) Glucose 114 H (74-99) mg/dL Calcium 9.1 (8.4-10.2) mg/dL Magnesium 2.0 (1.6-2.3) mg/dL Total Bilirubin 0.4 (0.2-1.3) mg/dL AST 32 (17-59) U/L ALT 29 (4-49) U/L Alkaline Phosphatase 92 (38-126) U/L Troponin I (0.000-0.034) ng/mL Total Protein 7.1 (6.3-8.2) g/dL Albumin 4.1 (3.5-5.0) g/dL Serum Alcohol <10 mg/dL 02/13/20 Range/Units 15:14 WBC (3.8-10.6) k/uL RBC (4.30-5.90) m/uL Hgb (13.0-17.5) gm/dL Hct (39.0-53.0) % MCV (80.0-100.0) fL MCH (25.0-35.0) pg MCHC (31.0-37.0) g/dL RDW (11.5-15.5) % Plt Count (150-450) k/uL Neutrophils % % Lymphocytes % % Monocytes % % Eosinophils % % Basophils % % Neutrophils # (1.3-7.7) k/uL Lymphocytes # (1.0-4.8) k/uL Monocytes # (0-1.0) k/uL Eosinophils # (0-0.7) k/uL Basophils # (0-0.2) k/uL PT (9.0-12.0) sec INR (<1.2) APTT (22.0-30.0) sec D-Dimer (<0.60) mg/L FEU Sodium (137-145) mmol/L Potassium (3.5-5.1) mmol/L Chloride (98-107) mmol/L Carbon Dioxide (22-30) mmol/L Anion Gap mmol/L BUN (9-20) mg/dL Creatinine (0.66-1.25) mg/dL Est GFR (CKD-EPI)AfAm (>60 ml/min/1.73 sqM) Est GFR (CKD-EPI)NonAf (>60 ml/min/1.73 sqM) Glucose (74-99) mg/dL Calcium (8.4-10.2) mg/dL Magnesium (1.6-2.3) mg/dL Total Bilirubin (0.2-1.3) mg/dL AST (17-59) U/L ALT (4-49) U/L Alkaline Phosphatase (38-126) U/L Troponin I <0.012 (0.000-0.034) ng/mL Total Protein (6.3-8.2) g/dL Albumin (3.5-5.0) g/dL Serum Alcohol mg/dL Disposition Clinical Impression: Dizziness Disposition: HOME SELF-CARE Condition: Good Instructions (If sedation given, give patient instructions): Dizziness (ED) Is patient prescribed a controlled substance at d/c from ED?: No Referrals: Cesar Bonner Jr, [Primary Care Provider] - 1-2 days Time of Disposition: 18:01
[2020-02-13] MEDS ORDERED: ONDANSETRON 4 MG/2 ML VIAL IVP STA (15:16)
[2020-02-13 15:26] LABS: Basophils # (A) 0.1 k/uL (0-0.2); Basophils % (A) 1 %; Eosinophils # (A) 0.2 k/uL (0-0.7); Eosinophils % (A) 3 %; HCT 41.3 % (39.0-53.0); HGB 13.2 gm/dL (13.0-17.5); Lymphocytes # (A) 2.1 k/uL (1.0-4.8); Lymphocytes % (A) 30 %; MCH 31.1 pg (25.0-35.0); MCHC 32.1 g/dL (31.0-37.0); MCV 96.9 fL (80.0-100.0); Mean Platelet Volume 9.1; Monocytes # (A) 0.4 k/uL (0-1.0); Monocytes % (A) 6 %; Neutrophils # (A) 4.1 k/uL (1.3-7.7); Neutrophils % (A) 58 %; Platelet Count 226 k/uL (150-450); RBC 4.26 m/uL (4.30-5.90); RDW 13.6 % (11.5-15.5); WBC 7.1 k/uL (3.8-10.6)
--- NOTE | 2020-02-13 15:27 | XR ---
EXAMINATION TYPE: XR chest 1V portable DATE OF EXAM: 02/13/2020 COMPARISON: Chest x-ray April 04, 2019. HISTORY: Chest pain and dizziness. TECHNIQUE: Single frontal view of the chest is obtained. FINDINGS: There is chronic parenchymal changes bilaterally without suspicious new focal air space op acity, pleural effusion, or pneumothorax seen. The cardiac silhouette size is stable and within norm al limits. The osseous structures are demineralized. Multilevel spurring in the thoracic spine. Deg enerative change right acromioclavicular joint redemonstrated. IMPRESSION: Chronic changes without acute pulmonary process.
[2020-02-13 15:51] LABS: ALT 29 U/L (4-49); AST 32 U/L (17-59); African American GFR (CKD) >90 (>60 ml/min/1.73 sqM); Albumin 4.1 g/dL (3.5-5.0); Alcohol <10 mg/dL; Alkaline Phosphatase 92 U/L (38-126); Anion Gap 11 mmol/L; Blood Urea Nitrogen 17 mg/dL (9-20); Calcium 9.1 mg/dL (8.4-10.2); Carbon Dioxide 18 mmol/L (22-30); Chloride 112 mmol/L (98-107); Glucose 114 mg/dL (74-99); Non-African American GFR(CKD) 83 (>60 ml/min/1.73 sqM); Potassium 3.6 mmol/L (3.5-5.1); Sodium 141 mmol/L (137-145); Total Bilirubin 0.4 mg/dL (0.2-1.3); Total Protein 7.1 g/dL (6.3-8.2)
[2020-02-13 15:58] LABS: D-Dimer 0.31 mg/L FEU (<0.60); Prothrombin Time 10.4 sec (9.0-12.0)
[2020-02-13 16:02] LABS: Partial Thromboplastin Time 21.8 sec (22.0-30.0)
[2020-02-13] MEDS ORDERED: MECLIZINE 12.5 MG TAB PO STA (16:29)
[2020-02-13] MEDS ORDERED: METOCLOPRAMIDE 5 MG/ML 2 ML VIAL IVP STA (16:29)
[2020-02-13 18:14] VITALS: BP 128/76; PULSE 78; RESP 16; TEMP 98
== END 2020-02-13 18:14 | disposition home or self-care (01) ==
LOC: EC 14:44
DX: R42 Dizziness and giddiness (principal); R07.89 Other chest pain; Z79.82 Long term (current) use of aspirin; Z87.891 Personal history of nicotine dependence; Z86.14 Personal history of Methicillin resistant Staphylococcus aureus infection
CPT/HCPCS: 96374; 96375; 99284; 36415; 93005; 85379; 80053; 83735; 84484; 85025; 85610; 85730; 71045; 96361; G0480; J2765; J2405; 80320

== ENCOUNTER → 2020-02-20 | Outpatient (CLI) | payer MEDICARE, BC ==
--- NOTE | 2020-02-21 06:59 | US ---
EXAMINATION TYPE: US carotid duplex BILAT DATE OF EXAM: 02/20/2020 COMPARISON: NONE CLINICAL HISTORY: R42 dizziness and giddiness. EXAM MEASUREMENTS: RIGHT: Peak Systolic Velocity (PSV) cm/sec ----- Right CCA: 117.5 ----- Right ICA: 109.3 ----- Right ECA: 96.0 ICA/CCA ratio: 0.9 RIGHT: End Diastole cm/sec ----- Right CCA: 28.8 ----- Right ICA: 39.1 ----- Right ECA: 14.4 LEFT: Peak Systolic Velocity (PSV) cm/sec ----- Left CCA: 116.8 ----- Left ICA: 11.6 ----- Left ECA: 61.6 ICA/CCA ratio: 1.0 LEFT: End Diastole cm/sec ----- Left CCA: 30.4 ----- Left ICA: 35.6 ----- Left ECA: 39.0 VERTEBRALS (direction of flow): Right Vertebral: Antegrade Left Vertebral: Antegrade Rhythm: Normal IMPRESSION: Severe plaque noted bilaterally. Elevated velocities visualized right mid CCA, right ECA , and right proximal CCA. Criteria for Assigning % of Stenosis / Diameter reduction (Estimation based on the indirect measurements of the internal carotid artery velocities (ICA PSV). 1. Normal (no stenosis)=ICA PSV < 125 cm/s: ratio < 2.0: ICA EDV<40 cm/s. 2. Less than 50% stenosis=ICA PSV < 125 cm/s: ratio < 2.0: ICA EDV<40 cm/s. 3. 50 to 69% stenosis=ICA PSV of 125 to 230 cm/s: ration 2.0 ? 4.0: ICA EDV 40-100 cm/s. 4. Greater than 70% stenosis to near occlusion= ICA PSV > 230 cm/s: ratio > 4.0: ICA EDV > 100 cm/s. 5. Near occlusion= ICA PSV velocities may be low or undetectable: variable ratio and ICA EDV. 6. Total occlusion=unable to detect flow.
== END | disposition home or self-care (01) ==
LOC: RADUSWWP 15:41
PROVIDERS: ATTEND Family Medicine
DX: I65.23 Occlusion and stenosis of bilateral carotid arteries (principal)
CPT/HCPCS: 93880

== ENCOUNTER → 2021-01-01 | Outpatient (CLI) | payer MEDICARE ==
--- NOTE | 2021-01-01 11:08 | P.STRESS ---
- Stress Test Note Stress Test Results/Findings: Exam Performed: stress echo exercise with con Exam Date: 01/01/21 Reason for Exam: CP Height: 5 ft 7 in Weight: 220 kg Protocol: SE Stage: II Duration of Exercise: 5.14 Resting Heart Rate: 62 Resting Blood Pressure: 140/85 Maximum Achieved Heart Rate: 129 Maximum Achieved Blood Pressure: 200/76 85% PMHR: 121 100% PMHR: 142 METS: 7.1 Technologist Comment: Stress Test Results/Findings: This is a 80-year-old gentleman with history of of smoking, family history of ischemic heart disease being evaluated for chest pains. Patient also has hypercholesterolemia. Stress data: Baseline EKG showed sinus rhythm with normal AL and QRS duration. Blood pressure at rest is 140/85, pulse rate of 60 to. Patient walked on the Jose R protocol for about 4 minutes achieving a maximum heart rate of 129 with a blood pressure 179/68. EKGs taken during or after exercise showed mild ST-T changes in inferolateral leads with half a millimeter ST depression. Patient did not experience any chest pain. Echo data: Baseline echo images showed normal wall motion and thickening. Exercise echo images showed augmentation of wall motion and thickening in all the segments. This is done with [employer] Final impression: #1. Borderline ST-T changes during exercise most probably secondary to hypertensive response, nonspecific for ischemia #2. Negative stress echo.
--- NOTE | 2021-01-02 08:22 | EST ---
Stress Test Results/Findings: Exam Performed: stress echo exercise with con Exam Date: 01/01/21 Reason for Exam: CP Height: 5 ft 7 in Weight: 220 kg Protocol: SE Stage: II Duration of Exercise: 5.14 Resting Heart Rate: 62 Resting Blood Pressure: 140/85 Maximum Achieved Heart Rate: 129 Maximum Achieved Blood Pressure: 200/76 85% PMHR: 121 100% PMHR: 142 METS: 7.1 Technologist Comment: Stress Test Results/Findings: This is a 80-year-old gentleman with history of of smoking, family history of ischemic heart disease being evaluated for chest pains. Patient also has hypercholesterolemia. Stress data: Baseline EKG showed sinus rhythm with normal CT and QRS duration. Blood pressure at rest is 140/85, pulse rate of 60 to. Patient walked on the Jose R protocol for about 4 minutes achieving a maximum heart rate of 129 with a blood pressure 179/68. EKGs taken during or after exercise showed mild ST-T changes in inferolateral leads with half a millimeter ST depression. Patient did not experience any chest pain. Echo data: Baseline echo images showed normal wall motion and thickening. Exercise echo images showed augmentation of wall motion and thickening in all the segments. This is done with [employer] Final impression: #1. Borderline ST-T changes during exercise most probably secondary to hypertensive response, nonspecific for ischemia #2. Negative stress echo. CLAY
== END | disposition home or self-care (01) ==
LOC: RADNMMAIN 08:52
PROVIDERS: ATTEND Family Medicine
DX: R07.9 Chest pain, unspecified (principal)
CPT/HCPCS: C8930; Q9950; 93351

== ENCOUNTER → 2023-11-19 | Outpatient (CLI) | payer MEDICARE ==
[2023-11-19 11:33] LABS: Blood Urea Nitrogen 19.1 mg/dL (9.0-27.0); Calcium 9.4 mg/dL (8.7-10.3); Chloride 103 mmol/L (96-109); Glucose 123 mg/dL (70-110); Magnesium 2.2 mg/dL (1.5-2.4); Potassium 4.4 mmol/L (3.5-5.5); Sodium 139 mmol/L (135-145)
== END | disposition home or self-care (01) ==
LOC: LABWHC1 07:20
PROVIDERS: ATTEND Internal Medicine Clinical Cardiac Electrophysiology
DX: I10 Essential (primary) hypertension (principal)
CPT/HCPCS: 36415; 80048; 83735

== ENCOUNTER 2023-12-24 13:13 | Emergency (ER) | payer MEDICARE ==
--- NOTE | 2023-12-24 13:25 | ED ---
Extremity Problem HPI - General Stated complaint: L leg pain Time Seen by Provider: 12/24/23 13:22 Source: RN notes reviewed, old records reviewed Mode of arrival: EMS Limitations: no limitations - History of Present Illness Initial comments: This is a 83-year-old male to the ER for evaluation today. Patient midstate after significant pulling or snapping sensation sensation in his left thigh knee hip. This symptoms occurred while doing some lifting while in mild, patient lost his footing and has severe pain pain to that left leg. Patient was unable to initially ambulate and then was able to walk with help and presents to the emergency room by EMS. MD Complaint: extremity pain, extremity swelling -: hour(s) Location: left, lower extremity History of Same: No -: Yes myalgia, Yes arthralgia Radiation: none Severity scale (1-10): 7 Quality: aching, sharp Consistency: constant Improves with: nothing Worsens with: nothing Associated Symptoms: denies other symptoms - Related Data Home Medications Medication Instructions Recorded Confirmed Aspirin EC [Ecotrin Low Dose] 81 mg PO DAILY 11/25/16 12/24/23 Atorvastatin [Lipitor] 20 mg PO HS 12/24/23 12/24/23 Triamcinolone 0.025% Cream 1 applic TOPICAL DAILY 12/24/23 12/24/23 [Kenalog 0.025% Cream] Valsartan [Diovan] 160 mg PO HS 12/24/23 12/24/23 amLODIPine [Norvasc] 5 mg PO DAILY 12/24/23 12/24/23 hydroCHLOROthiazide [Hydrodiuril] 25 mg PO DAILY 12/24/23 12/24/23 methocarbamoL [Robaxin] 500 mg PO Q8H PRN 12/24/23 12/24/23 Allergies Allergy/AdvReac Type Severity Reaction Status Date / Time No Known Allergies Allergy Verified 12/24/23 14:33 Review of Systems ROS Statement: Those systems with pertinent positive or pertinent negative responses have been documented in the HPI. ROS Other: All systems not noted in ROS Statement are negative. Past Medical History Past Medical History: No Reported History History of Any Multi-Drug Resistant Organisms: MRSA Date of last positivie culture/infection: 2014 MDRO Source:: left axilla Additional Past Surgical History / Comment(s): Cataracts Past Anesthesia/Blood Transfusion Reactions: No Reported Reaction Past Psychological History: No Psychological Hx Reported Past Alcohol Use History: Daily Past Drug Use History: None Reported - Past Family History Brother(s) Family Medical History: Myocardial Infarction ([place]) Father History Unknown: Yes Family Medical History: No Reported History Additional Family Medical History / Comment(s): of old age Mother Family Medical History: No Reported History General Exam General appearance: alert, in no apparent distress Head exam: Present: atraumatic, normocephalic, normal inspection Eye exam: Present: normal appearance, PERRL, EOMI. Absent: scleral icterus, conjunctival injection, periorbital swelling ENT exam: Present: normal exam, mucous membranes moist Neck exam: Present: normal inspection. Absent: tenderness, meningismus, lymphadenopathy Respiratory exam: Present: normal lung sounds bilaterally. Absent: respiratory distress, wheezes, rales, rhonchi, stridor Cardiovascular Exam: Present: regular rate, normal rhythm, normal heart sounds. Absent: systolic murmur, diastolic murmur, rubs, gallop, clicks GI/Abdominal exam: Present: soft, normal bowel sounds. Absent: distended, tenderness, guarding, rebound, rigid Extremities exam: Present: normal inspection, full ROM, normal capillary refill. Absent: tenderness, pedal edema, joint swelling, calf tenderness Back exam: Present: normal inspection Neurological exam: Present: alert, oriented X3, CN II-XII intact Psychiatric exam: Present: normal affect, normal mood Skin exam: Present: warm, dry, intact, normal color. Absent: rash Course Vital Signs 12/24/23 12/24/23 12/24/23 13:28 14:34 16:08 Temperature 98.0 F Pulse Rate 74 73 65 Respiratory 16 16 18 Rate Blood Pressure 134/71 126/88 133/77 O2 Sat by Pulse 98 93 L 96 Oximetry - Reevaluation(s) Reevaluation #1: 12/24/23 15:51 Medical record is reviewed Reevaluation #2: 12/24/23 15:51 Patient symptoms are unchanged Reevaluation #3: 12/24/23 15:51 Informed of results and questions answered Reevaluation #4: Was pt. sent in by a medical professional or institution (, PA, PRODUCTION TEAM ADVISOR, urgent care, hospital, or intermediate...) When possible be specific @ -no Did you speak to anyone other than the patient for history (EMS, parent, family, police, friend...)? What history was obtained from this source @ -no Did you review nursing and triage notes (agree or disagree)? Why? @ -agree Are old charts reviewed (outside hosp., previous admission, EMS record, old EKG, old radiological studies, urgent care reports/EKG's, intermediate records)? Report findings @ -yes Differential Diagnosis (chest pain, altered mental status, abdominal pain women, abdominal pain men, vaginal bleeding, weakness, fever, dyspnea, syncope, headache, dizziness, GI bleed, back pain, seizure, CVA, palpatations, mental health, musculoskeletal)? @ -prior EKG interpreted by me (3pts min.). @ -no X-rays interpreted by me (1pt min.). @ -yes negative for acute disease CT interpreted by me (1pt min.). @ -no U/S interpreted by me (1pt. min.). @ -no What testing was considered but not performed or refused? (CT, X-rays, U/S, labs)? Why? @ -none What meds were considered but not given or refused? Why? @ -none Did you discuss the management of the patient with other professionals (professionals i.e. , PA, PRODUCTION TEAM ADVISOR, lab, RT, psych nurse, social media manager, lawyer real estate, teacher, service officer, hospice case manager)? Give summary @ -no Was smoking cessation discussed for >3mins.? @ -no Was critical care preformed (if so, how long)? @ -no Were there social determinants of health that impacted care today? How? (Homelessness, low income, unemployed, alcoholism, drug addiction, transportation, low edu. Level, literacy, decrease access to med. care, [facility], rehab)? @ -none Was there de-escalation of care discussed even if they declined (Discuss DNR or withdrawal of care, Hospice)? DNR status @ -no What co-morbidities impacted this encounter? (DM, HTN, Smoking, COPD, CAD, Cancer, CVA, ARF, Chemo, Hep., AIDS, mental health diagnosis, sleep apnea, morbid obesity)? @ -none Was patient admitted / discharged? Hospital course, mention meds given and route, prescriptions, significant lab abnormalities, going to OR and other pertinent info. @ - 83 male to ER for evaluation of leg pain likely muscle strain sprain. Normal x-ray here in the ER patient is able to bear weight and can be discharged home Discharge Undiagnosed new problem with uncertain prognosis? @ -no Drug Therapy requiring intensive monitoring for toxicity (Heparin, Nitro, Insulin, Cardizem)? @ -no Were any procedures done? @ -no Diagnosis/symptom? @ -Muscle sprain leg strain Acute, or Chronic, or Acute on Chronic? @ -Acute Uncomplicated (without systemic symptoms) or Complicated (systemic symptoms)? @ -Complicated Side effects of treatment? @ -no Exacerbation, Progression, or Severe Exacerbation? @ -exacerbation Poses a threat to life or bodily function? How? (Chest pain, [place], [place], pneumonia, PE, COPD, DKA, ARF, appy, cholecystitis, CVA, Diverticulitis, Homicidal, Suicidal, threat to staff... and all critical care pts) @ -yes r treatment of age Medical Decision Making - Medical Decision Making 83 male to ER for evaluation of leg pain likely muscle strain sprain. Normal x-ray here in the ER patient is able to bear weight and can be discharged home - Radiology Data Radiology results: report reviewed (XR left femur is negative for traumatic injury), image reviewed Disposition Clinical Impression: Left thigh pain, Left hamstring muscle strain Disposition: HOME SELF-CARE Condition: Good Instructions (If sedation given, give patient instructions): Muscle Strain (ED), Hamstring Injury (ED), Leg Pain (ED) Is patient prescribed a controlled substance at d/c from ED?: No Referrals: Cesar Bonner Jr, [Primary Care Provider] - 1-2 days Time of Disposition: 15:40
--- NOTE | 2023-12-24 14:57 | XR ---
EXAMINATION TYPE: XR femur LT DATE OF EXAM: 12/24/2023 2:48 PM CLINICAL INDICATION:Male, 83 years old with history of pain; [facility] COMPARISON: 02/15/2017 TECHNIQUE: XR femur LT examined in Frontal and lateral projections. FINDINGS: No evidence of acute osseous pathology, joint dislocation, or soft tissue swelling. Mild o steophyte formations of the superior acetabulum. Mild joint space narrowing. Total left knee arthropl asty changes appear intact. Atherosclerosis of the arterial vasculature. A fabella is present. IMPRESSION: 1. No acute osseous pathology. 2. Left hip osteoarthrosis. 3. Left knee arthroplasty appears intact.
[2023-12-24] MEDS: KETOROLAC 15 MG/ML 1 ML VIAL IM STA (14:59)
[2023-12-24] MEDS: traMADol 50 MG TAB PO STA (15:01)
[2023-12-24] MEDS: traMADol 50 MG STARTER PACK 3 TAB BTL PO STA (16:05)
[2023-12-24 16:39] VITALS: BP 133/77; PULSE 65; RESP 18; TEMP 98
== END 2023-12-24 16:13 | disposition home or self-care (01) ==
LOC: EC 13:13
DX: S76.312A Strain of muscle, fascia and tendon of the posterior muscle group at thigh level, left thigh, initial encounter (principal); X50.0XXA Overexertion from strenuous movement or load, initial encounter
CPT/HCPCS: 73552; 99284; 96372; J1885

== ENCOUNTER → 2024-01-28 | Outpatient (CLI) | payer MEDICARE ==
--- NOTE | 2024-01-29 10:16 | US ---
EXAMINATION TYPE: US thyroid st tissue head/neck DATE OF EXAM: 01/28/2024 COMPARISON: EXAMINATION TYPE: US thyroid st tissue head/neck DATE OF EXAM: 01/28/2024 COMPARISON: NONE CLINICAL INDICATION: Male, 83 years old with history of R22.1 LOCALIZED SWELLING, MASS AND LUMP, NECK ; Lump right side neck TECHNIQUE: Ultrasound was directed to the area of clinical concern in the right inferior neck FINDINGS: Complex area right neck inferior to chin 1.6 x 1.2 x 1.6 cm. IMPRESSION: 1.6 x 1.2 x 1.6 cm sharply marginated oval hypoechoic mass with internal echoes and with through transmission consistent with a complex cyst.. It is amenable to fine-needle aspiration.
== END | disposition home or self-care (01) ==
LOC: RADUSWWP 15:30
PROVIDERS: ATTEND Family Medicine
DX: R22.1 Localized swelling, mass and lump, neck (principal); R22.0 Localized swelling, mass and lump, head
CPT/HCPCS: 76536

== ENCOUNTER 2024-02-18 08:24 | Day surgery (SDC) | payer MEDICARE ==
[2024-02-18 08:48] VITALS: RESP 16; TEMP 97.7
--- NOTE | 2024-02-18 10:05 | US ---
EXAMINATION TYPE: US FNA first lesion DATE OF EXAM: 02/18/2024 9:49 AM CLINICAL INDICATION:Male, 83 years old with history of N22.1 neck mass; COMPARISON: None ATTENDING: Dr. Audi Iqbal PROCEDURE: Informed consent was obtained. The risks and benefits of the procedure were discussed with the patien t. The site was marked. Timeout procedure was performed Ultrasound imaging of the thyroid demonstrates right neck enlarged lymph node. The patient was prepped, draped in the usual sterile fashion, and locally anesthetized with 1% lidoca ine. 3X 18-gauge core needle biopsies were obtained. Samples were sent to the pathology department fo r further analysis. Patient tolerated the procedure without incident and was sent home in stable con dition. IMPRESSION: Successful ultrasound guided right neck lymph node biopsy.
[2024-02-18 10:19] VITALS: BP 142/83; PULSE 65
== END 2024-02-18 10:05 | disposition home or self-care (01) ==
LOC: RADPROMAIN 08:24
PROVIDERS: ATTEND Family Medicine
DX: R22.1 Localized swelling, mass and lump, neck (principal)
CPT/HCPCS: 10005; 88305; 88312; 88341; 88342

== ENCOUNTER 2024-03-05 10:07 | Observation (INO) | payer MEDICARE ==
[2024-03-05] MEDS: NITROGLYCERIN OINT 1 INCH/GM PACKET TOPICAL STA (10:22)
[2024-03-05] MEDS: SODIUM CHLORIDE 0.9% 500 ML 500 ML IV STA (10:22)
--- NOTE | 2024-03-05 10:24 | ED ---
General Adult HPI - General Chief complaint: Chest Pain Stated complaint: Chest Pain Time Seen by Provider: 03/05/24 10:07 Source: patient, EMS, RN notes reviewed, old records reviewed Mode of arrival: EMS Limitations: no limitations - History of Present Illness Initial comments: This is an 83-year-old male with past medical history significant for high cholesterol and high blood pressure. Patient states he ate breakfast morning and got up and started moving boxes around and he started having some lower chest pain/epigastric pain. Patient states it made him very nauseous and he broke out in a sweat. EMS stated when they arrived he did complain of some shortness of breath as well he denied any radiation of the pain. Patient was given a nitro dropped his pressure little bit he did not get any improvement to the pain however eventually he was given Zofran and the nausea went away. Patient states currently there is still little discomfort but is considerably better than it was initially. Patient denies any recent illness or sickness. Patient has any fever chills or cough. - Related Data Home Medications Medication Instructions Recorded Confirmed Aspirin EC [Ecotrin Low Dose] 81 mg PO DAILY 11/25/16 02/18/24 Atorvastatin [Lipitor] 20 mg PO HS 12/24/23 02/18/24 Triamcinolone 0.025% Cream 1 applic TOPICAL DAILY 12/24/23 02/18/24 [Kenalog 0.025% Cream] amLODIPine [Norvasc] 5 mg PO DAILY 12/24/23 02/09/24 hydroCHLOROthiazide [Hydrodiuril] 25 mg PO DAILY 12/24/23 02/09/24 Carboxymethylcell/Glycerin/Pf 2 dropper BOTH EYES BID 02/09/24 02/18/24 [Refresh Relieva Pf 0.5-1% Drop] Allergies Allergy/AdvReac Type Severity Reaction Status Date / Time No Known Allergies Allergy Verified 03/05/24 10:12 Review of Systems ROS Statement: Those systems with pertinent positive or pertinent negative responses have been documented in the HPI. ROS Other: All systems not noted in ROS Statement are negative. Past Medical History Past Medical History: Hypertension Additional Past Medical History / Comment(s): Sees pulmomologist for "plugged up lungs" History of Any Multi-Drug Resistant Organisms: MRSA Date of last positivie culture/infection: 2014 MDRO Source:: left axilla Past Surgical History: Orthopedic Surgery Additional Past Surgical History / Comment(s): Cataracts Past Anesthesia/Blood Transfusion Reactions: No Reported Reaction Past Psychological History: No Psychological Hx Reported Smoking Status: Former smoker Past Alcohol Use History: Occasional Past Drug Use History: None Reported - Past Family History Brother(s) Family Medical History: Myocardial Infarction ([place]) Father History Unknown: Yes Family Medical History: No Reported History Additional Family Medical History / Comment(s): of old age Mother Family Medical History: No Reported History General Exam - General Exam Comments Initial Comments: GENERAL: Patient is well-developed and well-nourished. Patient is nontoxic and well- hydrated and is in mild distress. ENT: Neck is soft and supple. No significant lymphadenopathy is noted. Oropharynx i s clear. Moist mucous membranes. Neck has full range of motion without eliciting any pain. EYES: The sclera were anicteric and conjunctiva were pink and moist. Extraocular movements were intact and pupils were equal round and reactive to light. Eyelids were unremarkable. PULMONARY: Unlabored respirations. Good breath sounds bilaterally. No audible rales rhonchi or wheezing was noted. CARDIOVASCULAR: There is a regular rate and rhythm without any murmurs gallops or rubs. ABDOMEN: Soft and nontender with normal bowel sounds. SKIN: Skin is clear with no lesions or rashes and otherwise unremarkable. NEUROLOGIC: Patient is alert and oriented x3. Cranial nerves II through XII are grossly intact. Motor and sensory are also intact. Normal speech, volume and content. Symmetrical smile MUSCULOSKELETAL: Normal extremities with adequate strength and full range of motion. LYMPHATICS: No significant lymphadenopathy is noted PSYCHIATRIC: Normal psychiatric evaluation. Limitations: no limitations Course Vital Signs 03/05/24 03/05/24 10:10 11:09 Temperature 97.9 F Pulse Rate 60 52 L Respiratory 18 18 Rate Blood Pressure 128/74 133/73 O2 Sat by Pulse 98 97 Oximetry Medical Decision Making - Medical Decision Making EKG is interpreted by myself read EKG shows a sinus bradycardia 57 bpm KS interval is 166 QRS is 101 QT interval is 457 QTc is 451. Patient's EKG shows no ST segment ovation or depression. Was pt. sent in by a medical professional or institution (, PA, ANALYSIS SPECIALIST, urgent care, hospital, or residential...) When possible be specific @ -No Did you speak to anyone other than the patient for history (EMS, parent, family, police, friend...)? What history was obtained from this source @ -No Did you review nursing and triage notes (agree or disagree)? Why? @ -I reviewed and agree with nursing and triage notes Were old charts reviewed (outside hosp., previous admission, EMS record, old EKG, old radiological studies, urgent care reports/EKG's, residential records)? Report findings @ -No old charts were reviewed Differential Diagnosis? @ -Differential Chest Pain: Stable Angina, Unstable Angina, STEMI, NSTEMI Aortic Dissection, Pneumothorax, Musculoskeletal, Esophageal Spasm GERD, Cholecystitis, Pancreatitis, Zoster, this is not meant to be an all-inclusive list. EKG interpreted by me (3pts min.). @ -As above X-rays interpreted by me (1pt min.). @ -Chest x-ray shows no acute abnormality CT interpreted by me (1pt min.). @ -None done U/S interpreted by me (1pt. min.). @ -None done What testing was considered but not performed or refused? (CT, X-rays, U/S, labs)? Why? @ -None What meds were considered but not given or refused? Why? @ -None Did you discuss the management of the patient with other professionals (professionals i.e. , PA, ANALYSIS SPECIALIST, lab, RT, psych nurse, social services designee, customs house broker, teacher, logistics officer, case checker)? Give summary @ -I spoke with Dr. Browning he agreed to admit the patient admit the patient wrote admitting orders Was smoking cessation discussed for >3mins.? @ -No Was critical care preformed (if so, how long)? @ -No Were there social determinants of health that impacted care today? How? (Homelessness, low income, unemployed, alcoholism, drug addiction, transportati on, low edu. Level, literacy, decrease access to med. care, [facility], rehab)? @ -No Was there de-escalation of care discussed even if they declined (Discuss DNR or withdrawal of care, Hospice)? DNR status @ -No What co-morbidities impacted this encounter? (DM, HTN, Smoking, COPD, CAD, Cancer, CVA, ARF, Chemo, Hep., AIDS, mental health diagnosis, sleep apnea, morbid obesity)? @ -None Was patient admitted / discharged? Hospital course, mention meds given and route, prescriptions, significant lab abnormalities, going to OR and other pertinent info. @ -Patient's chest pain remained well in the emergency department but it was much improved from earlier. I spoke with Dr. Panchal and admit the patient for chest pain and consult cardiology repeat troponins Undiagnosed new problem with uncertain prognosis? @ -No Drug Therapy requiring intensive monitoring for toxicity (Heparin, Nitro, Insulin, Cardizem)? @ -No Were any procedures done? @ -No Diagnosis/symptom? @ -Chest pain Acute, or Chronic, or Acute on Chronic? @ -Acute Uncomplicated (without systemic symptoms) or Complicated (systemic symptoms)? @ -Complicated Side effects of treatment? @ -No Exacerbation, Progression, or Severe Exacerbation? @ -No Poses a threat to life or bodily function? How? (Chest pain, [place], [place], pneumonia, PE, COPD, DKA, ARF, appy, cholecystitis, CVA, Diverticulitis, Homicidal, Suicidal, threat to staff... and all critical care pts) @ -Yes this could lead to an [place] and endorgan dysfunction - Lab Data Result diagrams: 03/05/24 10:20 03/05/24 10:20 Lab Results 03/05/24 03/05/24 03/05/24 Range/Units 10:20 10:20 10:20 WBC 5.8 (3.8-10.6) k/uL RBC 3.76 L (4.30-5.90) m/uL Hgb 11.7 L (13.0-17.5) gm/dL Hct 34.8 L (39.0-53.0) % MCV 92.5 (80.0-100.0) fL MCH 31.1 (25.0-35.0) pg MCHC 33.6 (31.0-37.0) g/dL RDW 14.6 (11.5-15.5) % Plt Count 214 (150-450) k/uL MPV 9.0 Neutrophils % 74 % Lymphocytes % 12 % Monocytes % 8 % Eosinophils % 4 % Basophils % 1 % Neutrophils # 4.3 (1.3-7.7) k/uL Lymphocytes # 0.7 L (1.0-4.8) k/uL Monocytes # 0.5 (0-1.0) k/uL Eosinophils # 0.2 (0-0.7) k/uL Basophils # 0.1 (0-0.2) k/uL PT 11.2 (10.0-12.5) sec INR 1.0 (<1.2) APTT 23.9 (22.0-30.0) sec Sodium 138 (137-145) mmol/L Potassium 4.0 (3.5-5.1) mmol/L Chloride 104 (98-107) mmol/L Carbon Dioxide 25 (22-30) mmol/L Anion Gap 9 mmol/L BUN 17 (9-20) mg/dL Creatinine 0.74 (0.66-1.25) mg/dL Est GFR (CKD-EPI)AfAm >90 (>60 ml/min/1.73 sqM) Est GFR (CKD-EPI)NonAf 87 (>60 ml/min/1.73 sqM) Glucose 168 H (74-99) mg/dL Calcium 9.0 (8.4-10.2) mg/dL Magnesium 2.0 (1.6-2.3) mg/dL Total Bilirubin 1.5 H (0.2-1.3) mg/dL AST 61 H (17-59) U/L ALT 30 (4-49) U/L Alkaline Phosphatase 82 (38-126) U/L Troponin I (0.000-0.034) ng/mL Total Protein 7.0 (6.3-8.2) g/dL Albumin 4.2 (3.5-5.0) g/dL 03/05/24 Range/Units 10:20 WBC (3.8-10.6) k/uL RBC (4.30-5.90) m/uL Hgb (13.0-17.5) gm/dL Hct (39.0-53.0) % MCV (80.0-100.0) fL MCH (25.0-35.0) pg MCHC (31.0-37.0) g/dL RDW (11.5-15.5) % Plt Count (150-450) k/uL MPV Neutrophils % % Lymphocytes % % Monocytes % % Eosinophils % % Basophils % % Neutrophils # (1.3-7.7) k/uL Lymphocytes # (1.0-4.8) k/uL Monocytes # (0-1.0) k/uL Eosinophils # (0-0.7) k/uL Basophils # (0-0.2) k/uL PT (10.0-12.5) sec INR (<1.2) APTT (22.0-30.0) sec Sodium (137-145) mmol/L Potassium (3.5-5.1) mmol/L Chloride (98-107) mmol/L Carbon Dioxide (22-30) mmol/L Anion Gap mmol/L BUN (9-20) mg/dL Creatinine (0.66-1.25) mg/dL Est GFR (CKD-EPI)AfAm (>60 ml/min/1.73 sqM) Est GFR (CKD-EPI)NonAf (>60 ml/min/1.73 sqM) Glucose (74-99) mg/dL Calcium (8.4-10.2) mg/dL Magnesium (1.6-2.3) mg/dL Total Bilirubin (0.2-1.3) mg/dL AST (17-59) U/L ALT (4-49) U/L Alkaline Phosphatase (38-126) U/L Troponin I <0.012 (0.000-0.034) ng/mL Total Protein (6.3-8.2) g/dL Albumin (3.5-5.0) g/dL Disposition Clinical Impression: Chest pain Disposition: ADMITTED IP TO THIS [facility] Referrals: Cesar Bonner Jr, [Primary Care Provider] - 1-2 days Time of Disposition: 12:00
[2024-03-05 10:29] LABS: Basophils # (A) 0.1 k/uL (0-0.2); Basophils % (A) 1 %; Eosinophils # (A) 0.2 k/uL (0-0.7); Eosinophils % (A) 4 %; HCT 34.8 % (39.0-53.0); HGB 11.7 gm/dL (13.0-17.5); Lymphocytes # (A) 0.7 k/uL (1.0-4.8); Lymphocytes % (A) 12 %; MCH 31.1 pg (25.0-35.0); MCHC 33.6 g/dL (31.0-37.0); MCV 92.5 fL (80.0-100.0); Monocytes # (A) 0.5 k/uL (0-1.0); Monocytes % (A) 8 %; Neutrophils # (A) 4.3 k/uL (1.3-7.7); Neutrophils % (A) 74 %; Platelet Count 214 k/uL (150-450); RBC 3.76 m/uL (4.30-5.90); RDW 14.6 % (11.5-15.5); WBC 5.8 k/uL (3.8-10.6)
[2024-03-05 10:39] LABS: ALT 30 U/L (4-49); African American GFR (CKD) >90 (>60 ml/min/1.73 sqM); Anion Gap 9 mmol/L; Blood Urea Nitrogen 17 mg/dL (9-20); Carbon Dioxide 25 mmol/L (22-30); Chloride 104 mmol/L (98-107); Glucose 168 mg/dL (74-99); Non-African American GFR(CKD) 87 (>60 ml/min/1.73 sqM); Sodium 138 mmol/L (137-145)
[2024-03-05 10:40] LABS: Partial Thromboplastin Time 23.9 sec (22.0-30.0); Prothrombin Time 11.2 sec (10.0-12.5)
[2024-03-05 10:42] LABS: AST 61 U/L (17-59); Albumin 4.2 g/dL (3.5-5.0); Alkaline Phosphatase 82 U/L (38-126); Total Bilirubin 1.5 mg/dL (0.2-1.3)
--- NOTE | 2024-03-05 10:53 | XR ---
EXAMINATION TYPE: XR chest 2V DATE OF EXAM: 03/05/2024 COMPARISON: 02/13/2020 INDICATION: Chest pain and sternal chest pain TECHNIQUE: Single frontal view of the chest is obtained. FINDINGS: The heart size is normal. The pulmonary vasculature is normal. The lungs are clear. There is some hyperinflation flattening the diaphragms. Consider COPD. Spondylosis thoracic spine IMPRESSION: 1. No acute pulmonary process. 2. Consider COPD.
[2024-03-05] MEDS: NITROGLYCERIN OINT 1 INCH/GM PACKET TOPICAL SCH (20:11)
[2024-03-06] MEDS ORDERED: ASPIRIN 325 MG TAB PO SCH (09:00)
[2024-03-06] MEDS ORDERED: ALPRAZolam 0.25 MG TAB PO PRN (09:27)
[2024-03-06] MEDS ORDERED: NITROGLYCERIN SL TABS 0.4 MG TAB SUBLINGUAL PRN (09:27)
[2024-03-06] MEDS ORDERED: ALPRAZolam 0.5 MG TAB PO PRN (09:27)
--- NOTE | 2024-03-06 09:40 | P.CRDCN ---
History of Present Illness Consult date: 03/06/24 Consult reason: chest pain History of present illness: This is an 83-year-old male patient of Dr. Ivey with past medical history of angina with chest tightness with exertion, hypertension, dyslipidemia, mild to moderate carotid atherosclerosis, and SVT2 brief runs, sick sinus syndrome, macular degeneration, family history of coronary artery disease. We have been asked to evaluate the patient for chest pain. Patient was last seen in the office on September 03, 2023, at that time losartan was increased, advised weight loss and Holter monitor was ordered which has not been completed. Patient developed chest pain episode yesterday while working and had a subsequent episode last evening that was relieved with nitroglycerin. Blood pressure 110/65, heart rate 59, pulse ox 95% on room air. Patient is status post 500 cc IV fluid bolus, Nitro-Bid ointment. Discussed options with the patient to include cardiac catheterization, stress testing or treatment with medications and patient has opted to go for cardiac catheterization which will be scheduled for today. EKG: Sinus bradycardia at 57 bpm, no acute ST-T wave changes. Chest x-ray: No acute process. Consider COPD. Laboratory studies: WBC 5.8, hemoglobin 11.7. Electrolytes normal. Creatinine 0.74 BUN 17. Troponins negative x 3. Magnesium 2.0. Blood sugar 168. Total bilirubin 1.5 and AST 61. Home cardiac medications: Amlodipine 5 mg at bedtime, aspirin 81 mg daily, a torvastatin 20 mg at bedtime, hydrochlorothiazide 25 mg daily. Echocardiogram performed in the office on 01/14/2023 revealed EF 60%, mild concentric left ventricular hypertrophy. Mild MR, mild TR, PASP 30 mmHg. Mild pulmonic regurgitation. Lexiscan Cardiolite stress test performed in the office on 01/15/2023 revealed negative stress test by EKG criteria, normal myocardial perfusion and function. Review Of Systems: At the time of my exam: CONSTITUTIONAL: Denies fever or chills. HEENT: Denies blurred vision, vision changes, or eye pain. Denies hemoptysis CARDIOVASCULAR: Denies chest pain. Denies orthopnea. Denies PND. Denies palpitations RESPIRATORY: Denies shortness of breath. GASTROINTESTINAL: Denies abdominal pain. Denies nausea or vomiting. HEMATOLOGIC: Denies bleeding disorders. GENITOURINARY: Denies any blood in urine. SKIN: Denies puritis. Denies rash. Physical examination: Gen: This is an 83-year-old male in no acute distress. VS: reviewed HEENT: Head is atraumatic, normocephalic. Pupils equal, round. Sclerae is anicteric. NECK: Supple. No JVD. LUNGS: Clear to auscultation. No wheezes or rhonchi. No intercostal retractions. HEART: Regular rate and rhythm. No murmur. ABDOMEN: Soft No tenderness. EXTREMITIES: No pedal edema. No calf tenderness. NEUROLOGICAL: Patient is awake, alert and oriented x3. Assessment: Chest pain suggestive of unstable angina History of angina and chest tightness with exertion Hypertension Dyslipidemia Carotid atherosclerosis, mild to moderate SVT2 brief runs Sick sinus syndrome Family history of coronary artery disease Plan: Resume patient's home cardiac medications Change aspirin to 81 mg daily Obtain 2-D echocardiogram and Doppler study to assess cardiac structure and function Schedule patient for left heart catheterization today with Dr. Blayne Ayala. Further recommendations to follow based upon clinical course Thank you kindly for this consultation. Nurse practitioner note has been reviewed, I agree with documented findings and plan of care. Patient was seen and examined. Past Medical History Past Medical History: Hypertension Additional Past Medical History / Comment(s): Sees pulmomologist for "plugged up lungs" History of Any Multi-Drug Resistant Organisms: MRSA Date of last positivie culture/infection: 2014 MDRO Source:: left axilla Past Surgical History: Orthopedic Surgery Additional Past Surgical History / Comment(s): Cataracts Past Anesthesia/Blood Transfusion Reactions: No Reported Reaction Past Psychological History: No Psychological Hx Reported Smoking Status: Former smoker Past Alcohol Use History: Occasional Additional Past Alcohol Use History / Comment(s): pt states he drinks 1 mixed drinks per day of rum and coke Past Drug Use History: None Reported - Past Family History Brother(s) Family Medical History: Myocardial Infarction ([place]) Father History Unknown: Yes Family Medical History: No Reported History Additional Family Medical History / Comment(s): of old age Mother Family Medical History: No Reported History Medications and Allergies Home Medications Medication Instructions Recorded Confirmed Type Aspirin EC [Ecotrin Low Dose] 81 mg PO DAILY 11/25/16 03/05/24 History Atorvastatin [Lipitor] 20 mg PO HS 12/24/23 03/05/24 History Triamcinolone 0.025% Cream 1 applic TOPICAL DAILY 12/24/23 03/05/24 History [Kenalog 0.025% Cream] amLODIPine [Norvasc] 5 mg PO HS 12/24/23 03/05/24 History hydroCHLOROthiazide [Hydrodiuril] 25 mg PO DAILY 12/24/23 03/05/24 History Vit C/E/Zn/Coppr/Lutein/Zeaxan 2 cap PO DAILY 03/05/24 03/05/24 History [Preservision Areds 2 Softgel] methocarbamoL [Robaxin] 500 mg PO DAILY 03/05/24 03/05/24 History Allergies Allergy/AdvReac Type Severity Reaction Status Date / Time No Known Allergies Allergy Verified 03/05/24 12:25 Physical Exam Vitals: Vital Signs Temp Pulse Pulse Resp BP BP Pulse Ox 03/06/24 07:00 98.0 F 59 L 16 110/65 95 03/06/24 03:11 98.4 F 58 L 17 106/56 95 03/05/24 20:00 60 03/05/24 19:39 98.2 F 57 L 17 124/70 98 03/05/24 13:43 98.4 F 58 L 17 139/68 97 03/05/24 12:53 97.9 F 57 L 18 133/59 95 03/05/24 12:00 98.1 F 55 L 22 133/73 95 03/05/24 11:09 52 L 18 133/73 97 03/05/24 10:10 97.9 F 60 18 128/74 98 Intake and Output 03/05/24 03/06/24 03/06/24 22:59 06:59 14:59 Intake Total 180 Balance 180 Intake: Oral 180 Results 03/05/24 10:20 03/05/24 10:20 Cardiac Enzymes 03/05/24 03/05/24 03/05/24 Range/Units 10:20 10:20 13:41 AST 61 H (17-59) U/L Troponin I <0.012 <0.012 (0.000-0.034) ng/mL 03/05/24 Range/Units 15:38 AST (17-59) U/L Troponin I <0.012 (0.000-0.034) ng/mL Coagulation 03/05/24 Range/Units 10:20 PT 11.2 (10.0-12.5) sec APTT 23.9 (22.0-30.0) sec CBC 03/05/24 Range/Units 10:20 WBC 5.8 (3.8-10.6) k/uL RBC 3.76 L (4.30-5.90) m/uL Hgb 11.7 L (13.0-17.5) gm/dL Hct 34.8 L (39.0-53.0) % Plt Count 214 (150-450) k/uL Comprehensive Metabolic Panel 03/05/24 Range/Units 10:20 Sodium 138 (137-145) mmol/L Potassium 4.0 (3.5-5.1) mmol/L Chloride 104 (98-107) mmol/L Carbon Dioxide 25 (22-30) mmol/L BUN 17 (9-20) mg/dL Creatinine 0.74 (0.66-1.25) mg/dL Glucose 168 H (74-99) mg/dL Calcium 9.0 (8.4-10.2) mg/dL AST 61 H (17-59) U/L ALT 30 (4-49) U/L Alkaline Phosphatase 82 (38-126) U/L Total Protein 7.0 (6.3-8.2) g/dL Albumin 4.2 (3.5-5.0) g/dL Current Medications Generic Name Dose Route Start Last Admin Trade Name Freq PRN Reason Stop Dose Admin Aspirin 325 mg 03/06/24 09:00 Aspirin 325 Mg Tab PO DAILY KALE Nitroglycerin 0.4 mg 03/05/24 12:00 Nitroglycerin Sl Tabs 0.4 Mg Tab SUBLINGUAL Q5M PRN Chest Pain Nitroglycerin 1 inch 03/05/24 18:00 03/06/24 06:12 Nitroglycerin Oint 1 Inch/Gm Packet TOPICAL 1 inch Q6HR [facility] Administration Intake and Output 03/05/24 03/06/24 03/06/24 22:59 06:59 14:59 Intake Total 180 Balance 180 Intake: Oral 180 03/05/24 10:20 03/05/24 10:20
[2024-03-06 09:50] LABS: Chol/HDL Ratio 3.31 Ratio; LDL Cholesterol,Calculated 50.9 mg/dL (0.0-131.0)
[2024-03-06 09:55] LABS: Glucose,Whole Blood 142 mg/dL (70-110)
[2024-03-06] MEDS: ASPIRIN 81 MG PO SCH (09:56)
[2024-03-06] MEDS: ASPIRIN 325 MG TAB PO STA (09:56)
[2024-03-06] MEDS: ATORVASTATIN 80 MG TAB PO STA (09:57)
[2024-03-06] MEDS ORDERED: HEPARIN SODIUM 1,000 UN/ML (10ML VL) ONE (10:20)
[2024-03-06] MEDS ORDERED: VERAPAMIL 2.5 MG/ML 2 ML AMP ONE ×3 (10:20→11:36)
[2024-03-06] MEDS ORDERED: LIDOCAINE 1% INJ 10MG/ML (20 ML MDV) ONE (10:20)
[2024-03-06] MEDS ORDERED: fentaNYL (PF) 50 MCG/ML 2 ML AMP ONE (10:20)
[2024-03-06] MEDS: fentaNYL (PF) 50 MCG/ML 2 ML AMP IVP ONE ×2 (10:35→11:46)
[2024-03-06] MEDS: MIDAZOLAM 2 MG/2 ML VIAL IVP ONE ×2 (10:35→11:45)
[2024-03-06] MEDS: LIDOCAINE 1% INJ 10MG/ML (20 ML MDV) SQ ONE (10:37)
[2024-03-06] MEDS: VERAPAMIL SYRINGE (5 MG/10 ML) INTRAARTER ONE ×4 (10:39→11:38)
[2024-03-06] MEDS: HEPARIN SODIUM 1,000 UN/ML (10ML VL) IVP ONE ×4 (10:43→12:12)
[2024-03-06] MEDS: IOPAMIDOL-370 100ML BTL INJ ONE ×2 (11:51→12:24)
[2024-03-06] MEDS: NITROGLYCERIN 1000MCG/10ML SYRINGE INTRACORON ONE (12:12)
[2024-03-06] MEDS ORDERED: TICAGRELOR 90 MG TAB ONE (12:16)
[2024-03-06] MEDS: SODIUM CHLORIDE 0.9% 1,000 ML IV ONE (12:25)
[2024-03-06] MEDS: TICAGRELOR 90 MG TAB PO ONE (12:35)
[2024-03-06] MEDS ORDERED: ATROPINE SULFATE 0.1 MG/ML 10ML SYRINGE IV PRN (12:59)
[2024-03-06] MEDS ORDERED: ZOLPIDEM 5 MG TAB PO PRN (12:59)
[2024-03-06] MEDS ORDERED: RX INFO: IV CONTRAST WAS GIVEN 1 EACH MISC MISCELLANE PRN (12:59)
[2024-03-06] MEDS ORDERED: MAG HYDROX/AL HYDROX/SIMETH 30 ML CUP PO PRN (12:59)
--- NOTE | 2024-03-06 12:59 | P.PRCINT ---
Percutaneous Coronary Int. - Percutaneous Coronary Intervention Percutaneous Coronary Intervention: PROCEDURES PERFORMED: Bilateral coronary angiography, ultrasound guided arterial left radial access, snare of kinked catheter, iFR OM1, PCI OM1 with a 2.0 x 15mm Shoshoni LIZZY INDICATION: Unstable angina CONSENT:I have discussed the risks, benefits and alternative therapies for the above-mentioned procedure and for both sedation/analgesia as well as necessary blood product administration, if indicated, as they pertain to this patient. The patient has indicated understanding and acceptance of the risks and procedures discussed. PROCEDURE: After the risks, benefits and alternatives of the above mentioned procedure explained in detail with the patient, informed consent was obtained. Patient was taken to the catheterization lab and prepped and draped in usual fashion. Patient previously had a 6-Pakistani sheath placed in the right radial artery for diagnostic procedure, see separate report. Diagnostic images were obtained of the RCA partially however reported difficulty torquing the catheter and found to have a kink at the right forearm unable to be wired. Therefore I was asked to perform a snare to straighten out the catheter. 1% lidocaine was used to anesthetize the left radial artery. A 6-Pakistani sheath was placed in the left radial artery using modified Seldinger technique and ultrasound guidance. A 10mm snare was advanced through the left radial site however tortuous left subclavian takeoff and unable to snare. Eventually using a 15 mm snare, the 5 catheter was attempted to be snared and straightened and then wired and removed. Left coronary angiography was performed with a 5-Pakistani JL 3.5 catheter and right coronary angiography was performed with a 6-Pakistani AL 0.75 guide catheter in various views. There was some dampening noted of the JL 3.5 however this is felt related to positioning and angulation. There was some difficulty engaging the circumflex and therefore a 6-Pakistani CLS 3.5 guide was used to engage the circumflex. the decision was made to perform iFR of the OM1 branch. Heparin was given. A 0.014 pressure wire was advanced the proximal circumflex and normalized. It was then advanced once in her distal to the lesion and was noted to be abnormal at 0.65. Therefore the decision was made to perform PCI. Predilation was performed with a 2.0 x 8 mm balloon. PCI of the proximal circumflex was performed with a 2.0 x 15 mm drug-eluting stent. Final angiograms were performed. Pre-intervention there was 80% stenosis and MALISSA 3 flow and postintervention there was less than 10% stenosis and MALISSA-3 flow. The right and left radial sheath was removed and a TR band was placed with hemostasis achieved. The patient tolerated the procedure well. Patient was transported back to the post catheterization holding area in stable condition. Conscious Sedation: Patient was monitored under the direct supervision of myself for conscious sedation using Versed and fentanyl for a total duration of 77 minutes HEMODYNAMICS: Ao: 118/71 SELECTIVE CORONARY ARTERIOGRAPHY: LEFT MAIN: There does not appear to be any left main with dual ostial LAD and circumflex. LEFT ANTERIOR DESCENDING CORONARY ARTERY: LAD is a moderate to large caliber vessel which wraps around to the apex. There is ostial 50-60% stenosis and mid LAD 50-60% stenosis at the bifurcation of a small caliber diagonal 1 branch. Otherwise there are mild luminal irregularities. LEFT CIRCUMFLEX CORONARY ARTERY: Left circumflex is a small to moderate caliber vessel with an OM1 and OM2 branch. OM1 is small caliber and has a proximal 80% stenosis. RIGHT CORONARY ARTERY: The right coronary artery is a large caliber vessel which gives off a PDA and PLV branch and is the dominant vessel. There is proximal 30% stenosis and otherwise mild luminal irregularities. FINAL IMPRESSION: 1. CAD as described above including 50-60% ostial LAD, 50-60% mid LAD, 80% OM1, 30% proximal RCA stenosis. 2. Abnormal iFR OM1 3. S/p PCI OM1 with a 2.0 x 15mm Shoshoni LIZZY PLAN: 1. Aggressive risk factor modification per most recent ACC/AHA guidelines. 2. Continue dual antiplatelets with aspirin and Brillinta for 12 months. 3. If continues to have angina symptoms may consider further assessment of LAD.
[2024-03-06] MEDS: hydroCHLOROthiazide 25 MG TAB PO SCH (13:00)
[2024-03-06] MEDS: METOPROLOL SUCCINATE (ER) 25 MG TAB.ER.24H PO SCH (13:19)
[2024-03-06] MEDS: SODIUM CHLORIDE 0.9% 1,000 ML in EMPTY BAG 1 BAG IV SCH (13:19)
[2024-03-06] MEDS: ACETAMINOPHEN TAB 325 MG TAB PO PRN (15:32)
[2024-03-06] MEDS: NITROGLYCERIN SL TABS 0.4 MG TAB SUBLINGUAL PRN (16:14)
[2024-03-06 16:26] LABS: Glucose,Whole Blood 165 mg/dL (70-110)
[2024-03-06] MEDS: HYDROmorphone 0.5 MG/0.5 ML SYRINGE IVP STA (19:31)
[2024-03-06 20:01] LABS: Glucose,Whole Blood 171 mg/dL (70-110)
[2024-03-06] MEDS: amLODIPine 5 MG TAB PO SCH (20:25)
[2024-03-06] MEDS: ATORVASTATIN 20 MG TAB PO SCH (20:25)
[2024-03-06] MEDS: TICAGRELOR 90 MG TAB PO SCH (20:25)
--- NOTE | 2024-03-06 20:33 | CC ---
CARDIAC CATHETERIZATION REPORT INDICATIONS: Unstable angina. HISTORY: This is an 83-year-old gentleman who presented to hospital with episodes of chest pressure associated with shortness of breath yesterday and had another episode of chest pain last night requiring sublingual nitroglycerin. EKG did not reveal ischemic changes. Cardiac enzymes were negative. I advised the patient to undergo cardiac catheterization for further evaluation for unstable angina. He had been explained of risks, benefits, and alternatives understood and accepted. PROCEDURE NOTE: After obtaining informed consent, left heart catheterization and coronary angiogram were performed via the right radial artery. Right radial artery access was obtained using Seldinger technique right Tara catheter was floated into the ascending aorta under fluoroscopic guidance. Left ventricular hemodynamics were obtained. Left ventricular end-diastolic pressure was 19 and we had a subselective injection of the right coronary artery that showed mild nonobstructive disease . At this stage as we were trying to engage the right coronary artery most selectively, catheter developed a kink in the forearm and we were not able to engage the catheter and we were not able to have even a Glidewire through the catheter to straighten it. At this stage, I asked Dr. Ivey, the on-call public safety police to come and straight in and retrieve the catheter and complete the procedure. MMODL / IJN: [id number] /
[2024-03-07 04:52] VITALS: RESP 16
[2024-03-07 06:06] LABS: Glucose,Whole Blood 133 mg/dL (70-110)
[2024-03-07] MEDS ORDERED: HEPARIN SODIUM,PORCINE 10,000 UNIT in SODIUM CHLORIDE 0.9% 1,000 ML IRRIGATION PRN (07:00)
[2024-03-07] MEDS ORDERED: HEPARIN SODIUM,PORCINE (1 ML) 2,500 UNIT in SODIUM CHLORIDE 0.9% 250 ML IRRIGATION PRN (07:00)
[2024-03-07 07:24] LABS: African American GFR (CKD) >90 (>60 ml/min/1.73 sqM); Non-African American GFR(CKD) 87 (>60 ml/min/1.73 sqM)
[2024-03-07 08:38] VITALS: BP 121/66; PULSE 65; TEMP 97.5
[2024-03-07 11:41] LABS: Glucose,Whole Blood 146 mg/dL (70-110)
--- NOTE | 2024-03-07 11:59 | P.PN ---
Subjective Progress Note Date: 03/07/24 This is an 83-year-old male patient of Dr. Ivey with past medical history of angina with chest tightness with exertion, hypertension, dyslipidemia, mild to moderate carotid atherosclerosis, and SVT2 brief runs, sick sinus syndrome, macular degeneration, family history of coronary artery disease. We have been asked to evaluate the patient for chest pain. Patient was last seen in the office on September 03, 2023, at that time losartan was increased, advised weight loss and Holter monitor was ordered which has not been completed. Patient developed chest pain episode yesterday while working and had a subsequent episode last evening that was relieved with nitroglycerin. Blood pressure 110/65, heart rate 59, pulse ox 95% on room air. Patient is status post 500 cc IV fluid bolus, Nitro-Bid ointment. Discussed options with the patient to include cardiac catheterization, stress testing or treatment with medications and patient has opted to go for cardiac catheterization which will be scheduled for today. EKG: Sinus bradycardia at 57 bpm, no acute ST-T wave changes. Chest x-ray: No acute process. Consider COPD. Laboratory studies: WBC 5.8, hemoglobin 11.7. Electrolytes normal. Creatinine 0.74 BUN 17. Troponins negative x 3. Magnesium 2.0. Blood sugar 168. Total bilirubin 1.5 and AST 61. Home cardiac medications: Amlodipine 5 mg at bedtime, aspirin 81 mg daily, atorvastatin 20 mg at bedtime, hydrochlorothiazide 25 mg daily. Echocardiogram performed in the office on 01/14/2023 revealed EF 60%, mild concentric left ventricular hypertrophy. Mild MR, mild TR, PASP 30 mmHg. Mild pulmonic regurgitation. Lexiscan Cardiolite stress test performed in the office on 01/15/2023 revealed negative stress test by EKG criteria, normal myocardial perfusion and function. 03/07 Yesterday, patient underwent cardiac catheterization with Dr. Ivey which found 50 to 60% ostial LAD, 50 to 60% mid LAD, 80% OM1, 30% proximal RCA stenosis. Patient underwent PCI of the OM1 with LIZZY. Patient has been started on Brilinta and continued on aspirin for dual antiplatelet therapy for 12 months. Patient denies having any chest pain this morning. He states he is feeling better. No problems overnight. Blood pressure 121/66, heart rate 65, pulse ox 96% on 2 L nasal cannula, afebrile. Creatinine 0.74. Physical examination: Gen: This is an 83-year-old male in no acute distress. VS: reviewed HEENT: Head is atraumatic, normocephalic. Pupils equal, round. Sclerae is anicteric. NECK: Supple. No JVD. LUNGS: Clear to auscultation. No wheezes or rhonchi. No intercostal retractions. HEART: Regular rate and rhythm. No murmur. ABDOMEN: Soft No tenderness. EXTREMITIES: No pedal edema. No calf tenderness. NEUROLOGICAL: Patient is awake, alert and oriented x3. Assessment: Chest pain suggestive of unstable angina History of angina and chest tightness with exertion Hypertension Dyslipidemia Carotid atherosclerosis, mild to moderate SVT2 brief runs Sick sinus syndrome Family history of coronary artery disease Plan: Continue current cardiac medications, cardiac prescriptions have been sent to his pharmacy Patient is cleared for discharge from cardiology and may follow-up with Dr. Ivey in 1 week. Nurse practitioner note has been reviewed, I agree with documented findings and plan of care. Patient was seen and examined. Objective - Vital Signs Vital signs: Vital Signs Temp 97.5 F L 03/07/24 08:36 Pulse 65 03/07/24 08:36 Resp 16 03/07/24 08:36 BP 121/66 03/07/24 08:36 Pulse Ox 96 03/07/24 08:36 FiO2 Intake & Output 03/06/24 03/07/24 03/07/24 18:59 06:59 18:59 Intake Total 530 Balance 530 Weight 100.5 kg Intake: IV 410 Invasive Line 1 10 Oral 120 Other: Voiding Method Toilet Toilet # Voids 2 1 # Bowel Movements 1 - Labs CBC & Chem 7: 03/05/24 10:20 03/07/24 06:32 Labs: Abnormal Lab Results - Last 24 Hours (Table) 03/05/24 03/06/24 03/06/24 Range/Units 15:10 09:54 16:24 POC Glucose (mg/dL) 142 H 165 H (70-110) mg/dL HDL Cholesterol 34.70 L (40.00-60.00) mg/dL 03/06/24 03/07/24 Range/Units 19:59 06:04 POC Glucose (mg/dL) 171 H 133 H (70-110) mg/dL HDL Cholesterol (40.00-60.00) mg/dL
--- NOTE | 2024-03-08 15:54 | P.DS ---
Providers Date of admission: 03/05/24 12:02 Expected date of discharge: 03/07/24 Attending physician: Cesar Bonner Consults: 03/05/24 12:00 Consult Physician Urgent Consulting Provider: Lindsay Corral Consult Reason/Comments: Chest pain Do you want consulting provider notified?: Yes 03/06/24 12:59 Consult Physician Routine Consulting Provider: Lindsay Corral Consult Reason/Comments: Post Interventional Patient Do you want consulting provider notified?: Already Contacted Primary care physician: [facility] Course: Final Diagnoses: Chest pain, probable unstable angina, in a patient with history of angina, relieved with nitroglycerin, as per cardio. Status postcardiac catheterization reporting 50 to 60% ostial LAD, 50 to 60% mid LAD, 80% OM1, 30% proximal RCA stenosis,PCI of the OM1 with LIZZY. Brilinta initiated and continues on aspirin for dual antiplatelet therapy for 12 months. Hypertension Dyslipidemia Carotid atherosclerosis, mild to moderate SVT2 brief runs Sick sinus syndrome Family history of coronary artery disease This is a 83-year-old gentleman admitted with chest pain/chest tightness with exertion, in the morning and then again in the evening, relieved with nitroglycerin. Evaluated by cardiology, patient completed cardiac catheterization reporting 50 to 60% ostial LAD, 50 to 60% mid LAD, 80% OM1, 30% proximal RCA stenosis,PCI of the OM1 with LIZZY. Brilinta initiated and continues on aspirin for dual antiplatelet therapy for 12 months. Tolerated procedure well. Denies any chest pain, palpitations or shortness of breath. Renal function stable. Patient has been cleared by cardiology for discharge. Patient will be discharged home today in a stable condition with guarded prognosis. The impression and plan of care has been dictated as directed. : I performed a history and examination of this patient, discussed the same with the dictator. I agree with the dictator's note ,documented as a scribe. Any additional findings or plans will be noted. Patient Condition at Discharge: Stable Plan - Discharge Summary New Discharge Prescriptions: New Ticagrelor [Brilinta] 90 mg PO BID #180 tab Nitroglycerin Sl Tabs [Nitrostat] 0.4 mg SUBLINGUAL Q5M PRN #25 tab PRN Reason: Chest Pain Metoprolol Succinate (ER) [Toprol XL] 12.5 mg PO DAILY #45 tab Continue Aspirin EC [Ecotrin Low Dose] 81 mg PO DAILY hydroCHLOROthiazide [Hydrodiuril] 25 mg PO DAILY Atorvastatin [Lipitor] 20 mg PO HS amLODIPine [Norvasc] 5 mg PO HS Vit C/E/Zn/Coppr/Lutein/Zeaxan [Preservision Areds 2 Softgel] 2 cap PO DAILY Triamcinolone 0.025% Cream [Kenalog 0.025% Cream] 1 applic TOPICAL DAILY No Action methocarbamoL [Robaxin] 500 mg PO DAILY Discharge Medication List Aspirin EC [Ecotrin Low Dose] 81 mg PO DAILY 11/25/16 [History] Atorvastatin [Lipitor] 20 mg PO HS 12/24/23 [History] Triamcinolone 0.025% Cream [Kenalog 0.025% Cream] 1 applic TOPICAL DAILY 12/24/23 [History] amLODIPine [Norvasc] 5 mg PO HS 12/24/23 [History] hydroCHLOROthiazide [Hydrodiuril] 25 mg PO DAILY 12/24/23 [History] Vit C/E/Zn/Coppr/Lutein/Zeaxan [Preservision Areds 2 Softgel] 2 cap PO DAILY 03/05/24 [History] methocarbamoL [Robaxin] 500 mg PO DAILY 03/05/24 [History] Metoprolol Succinate (ER) [Toprol XL] 12.5 mg PO DAILY #45 tab 03/07/24 [Rx] Nitroglycerin Sl Tabs [Nitrostat] 0.4 mg SUBLINGUAL Q5M PRN #25 tab 03/07/24 [Rx] Ticagrelor [Brilinta] 90 mg PO BID #180 tab 03/07/24 [Rx] Follow up Appointment(s)/Referral(s): Garrett Sheppard MD [STAFF PHYSICIAN] - 03/15/24 11:15 am (Follow up with Nery CHRISTIAN) Cesar Bonner Jr, [Primary Care Provider] - 3 Days (Office is closed for lunch. Please call to schedule follow up appoitment) Patient Instructions/Handouts: *[facility] - After Heart Catheterization - Slab Grinder Instructions, Heart Attack (IP) Discharge Disposition: HOME SELF-CARE
== END 2024-03-07 13:10 | disposition home or self-care (01) ==
LOC: EC 10:07 → 6NMEDSUR 12:02 → 3SCARD 03-06 18:09
PROVIDERS: ADMIT Family Medicine; ATTEND Family Medicine
DX: R07.89 Other chest pain (principal); I25.10 Atherosclerotic heart disease of native coronary artery without angina pectoris; I10 Essential (primary) hypertension; E78.5 Hyperlipidemia, unspecified; I47.10 Supraventricular tachycardia, unspecified; I65.29 Occlusion and stenosis of unspecified carotid artery; I49.5 Sick sinus syndrome; Z82.49 Family history of ischemic heart disease and other diseases of the circulatory system; Z87.891 Personal history of nicotine dependence; Z79.82 Long term (current) use of aspirin; E78.00 Pure hypercholesterolemia, unspecified
CPT/HCPCS: 96376; 96361; 96374; 99285; 36415; 94760; 93005; 93458; 93799; 80061; 80053; 82565; 83735; 84484; 85025; 85610; 85730; 71046; G0378 ×3; C9600; J2250; J2001; J3010; J1644; J1170; Q9967; J2305

== ENCOUNTER 2024-03-08 19:27 | Inpatient (IN) | payer MEDICARE ==
--- NOTE | 2024-03-08 19:38 | ED ---
General Adult HPI - General Source: patient, family, RN notes reviewed Mode of arrival: wheelchair Limitations: no limitations <Radha Russo - Last Filed: 03/08/24 19:37> - History of Present Illness -: hour(s) Radiation: abdomen Severity scale (1-10): 7 Quality: sharp Consistency: intermittent Improves with: none Worsens with: none Associated Symptoms: denies other symptoms <Saturnino Perez - Last Filed: 03/08/24 23:18> - General Chief complaint: Abdominal Pain Stated complaint: Abd Pain-Post Surgery Stent Time Seen by Provider: 03/08/24 19:37 - History of Present Illness Initial comments: Quick note: 83-year-old male presented to the ER with a chief complaint of epigastric abdominal pain. Patient recently underwent a cardiac catheterization with stent placement by Dr. Mcbride on 03-06-2024. Patient states at 3:30 AM he started to experiencing a sharp persistent epigastric abdominal pain. He states he took 2 nitro without relief. He endorses nausea, vomiting, dizziness and shortness of breath. (Radha Russo) This is a 83-year-old male to ER for evaluation of significant abdominal pain epigastric abdominal pain with recent cardiac catheterization and stent placed, today patient has persistent abdominal pain with out nausea or vomiting no fevers (Saturnino Perez) - Related Data Home Medications Medication Instructions Recorded Confirmed Aspirin EC [Ecotrin Low Dose] 81 mg PO DAILY 11/25/16 03/05/24 Atorvastatin [Lipitor] 20 mg PO HS 12/24/23 03/05/24 Triamcinolone 0.025% Cream 1 applic TOPICAL DAILY 12/24/23 03/05/24 [Kenalog 0.025% Cream] amLODIPine [Norvasc] 5 mg PO HS 12/24/23 03/05/24 hydroCHLOROthiazide [Hydrodiuril] 25 mg PO DAILY 12/24/23 03/05/24 Vit C/E/Zn/Coppr/Lutein/Zeaxan 2 cap PO DAILY 03/05/24 03/05/24 [Preservision Areds 2 Softgel] methocarbamoL [Robaxin] 500 mg PO DAILY 03/05/24 03/05/24 Previous Rx's Medication Instructions Recorded Metoprolol Succinate (ER) [Toprol 12.5 mg PO DAILY #45 tab 03/07/24 XL] Nitroglycerin Sl Tabs [Nitrostat] 0.4 mg SUBLINGUAL Q5M PRN #25 tab 03/07/24 Ticagrelor [Brilinta] 90 mg PO BID #180 tab 03/07/24 Allergies Allergy/AdvReac Type Severity Reaction Status Date / Time No Known Allergies Allergy Verified 03/08/24 19:35 Review of Systems ROS Other: All systems not noted in ROS Statement are negative. <Radha Russo - Last Filed: 03/08/24 19:37> ROS Other: All systems not noted in ROS Statement are negative. <Saturnino Perez - Last Filed: 03/08/24 23:18> ROS Statement: Those systems with pertinent positive or pertinent negative responses have been documented in the HPI. Past Medical History Past Medical History: Hyperlipidemia, Hypertension Additional Past Medical History / Comment(s): Sees pulmomologist for "plugged up lungs" History of Any Multi-Drug Resistant Organisms: MRSA Date of last positivie culture/infection: 2014 MDRO Source:: left axilla Past Surgical History: Orthopedic Surgery Additional Past Surgical History / Comment(s): Cataracts, heart cath w/ stent placement Past Anesthesia/Blood Transfusion Reactions: No Reported Reaction Past Psychological History: No Psychological Hx Reported Smoking Status: Former smoker Past Alcohol Use History: Occasional Past Drug Use History: None Reported - Past Family History Brother(s) Family Medical History: Myocardial Infarction ([place]) Father History Unknown: Yes Family Medical History: No Reported History Additional Family Medical History / Comment(s): of old age Mother Family Medical History: No Reported History <Radha Russo - Last Filed: 03/08/24 19:37> General Exam Limitations: no limitations <Radha Russo - Last Filed: 03/08/24 19:37> General appearance: alert, in no apparent distress Head exam: Present: atraumatic, normocephalic, normal inspection Eye exam: Present: normal appearance, PERRL, EOMI. Absent: scleral icterus, conjunctival injection, periorbital swelling ENT exam: Present: normal exam, mucous membranes moist Neck exam: Present: normal inspection. Absent: tenderness, meningismus, lymphadenopathy Respiratory exam: Present: normal lung sounds bilaterally. Absent: respiratory distress, wheezes, rales, rhonchi, stridor Cardiovascular Exam: Present: regular rate, normal rhythm, normal heart sounds. Absent: systolic murmur, diastolic murmur, rubs, gallop, clicks GI/Abdominal exam: Present: soft, normal bowel sounds. Absent: distended, tenderness, guarding, rebound, rigid Extremities exam: Present: normal inspection, full ROM, normal capillary refill. Absent: tenderness, pedal edema, joint swelling, calf tenderness Back exam: Present: normal inspection Neurological exam: Present: alert, oriented X3, CN II-XII intact Psychiatric exam: Present: normal affect, normal mood Skin exam: Present: warm, dry, intact, normal color. Absent: rash <Saturnino Perez - Last Filed: 03/08/24 23:18> - General Exam Comments Initial Comments: Visual Physical Exam Vital signs reviewed General: Well-appearing, nontoxic, no acute distress. Head: Normocephalic, atraumatic Eyes: PERRLA, EOMI ENT: Airway patent Chest: Nonlabored breathing Skin: No visual rash, normal skin tone Neuro: Alert and oriented 3 Musculoskeletal: No gross abnormalities (Radha Russo) Course <Saturnino Perez - Last Filed: 03/08/24 23:18> Vital Signs 03/08/24 03/08/24 19:30 22:26 Temperature 97.6 F Pulse Rate 69 67 Respiratory 19 18 Rate Blood Pressure 199/74 153/73 O2 Sat by Pulse 99 96 Oximetry - Reevaluation(s) Reevaluation #1: 03/08/24 23:09 Medical records reviewed (Saturnino Perez) Reevaluation #2: 03/08/24 23:09 Patient symptoms improved (Saturnino Perez) Reevaluation #3: 03/08/24 23:10 Patient informed of results and questions answered (Saturnino Perez) Reevaluation #4: Was pt. sent in by a medical professional or institution (, PA, [facility], urgent care, hospital, or long-term...) When possible be specific @ -no Did you speak to anyone other than the patient for history (EMS, parent, family, police, friend...)? What history was obtained from this source @ -no Did you review nursing and triage notes (agree or disagree)? Why? @ -agree Are old charts reviewed (outside hosp., previous admission, EMS record, old EKG, old radiological studies, urgent care reports/EKG's, long-term records)? Report findings @ -yes Differential Diagnosis (chest pain, altered mental status, abdominal pain women, abdominal pain men, vaginal bleeding, weakness, fever, dyspnea, syncope, headache, dizziness, GI bleed, back pain, seizure, CVA, palpatations, mental health, musculoskeletal)? @ -prior EKG interpreted by me (3pts min.). @ -yes X-rays interpreted by me (1pt min.). @ -yes negative for acute disease CT interpreted by me (1pt min.). @ -no U/S interpreted by me (1pt. min.). @ -no What testing was considered but not performed or refused? (CT, X-rays, U/S, labs)? Why? @ -none What meds were considered but not given or refused? Why? @ -none Did you discuss the management of the patient with other professionals (professionals i.e. , PA, [facility], lab, RT, psych nurse, social services assistant, cargo broker, teacher, founder and chief technical officer, case packer)? Give summary @ -no Was smoking cessation discussed for >3mins.? @ -no Was critical care preformed (if so, how long)? @ -no Were there social determinants of health that impacted care today? How? (Homelessness, low income, unemployed, alcoholism, drug addiction, transportatio n, low edu. Level, literacy, decrease access to med. care, long term, rehab)? @ -none Was there de-escalation of care discussed even if they declined (Discuss DNR or withdrawal of care, Hospice)? DNR status @ -no What co-morbidities impacted this encounter? (DM, HTN, Smoking, COPD, CAD, Cancer, CVA, ARF, Chemo, Hep., AIDS, mental health diagnosis, sleep apnea, morbid obesity)? @ -none Was patient admitted / discharged? Hospital course, mention meds given and route, prescriptions, significant lab abnormalities, going to OR and other pertinent info. @ - Undiagnosed new problem with uncertain prognosis? @ -no Drug Therapy requiring intensive monitoring for toxicity (Heparin, Nitro, Insulin, Cardizem)? @ -no Were any procedures done? @ -no Diagnosis/symptom? @ - Acute, or Chronic, or Acute on Chronic? @ -Acute Uncomplicated (without systemic symptoms) or Complicated (systemic symptoms)? @ -Complicated Side effects of treatment? @ -no Exacerbation, Progression, or Severe Exacerbation? @ -exacerbation Poses a threat to life or bodily function? How? (Chest pain, [place], [place], pneumonia, PE, COPD, DKA, ARF, appy, cholecystitis, CVA, Diverticulitis, Homicidal, Suicidal, threat to staff... and all critical care pts) @ -yes (Saturnino Perez) Reevaluation #5: Differential Abdominal Pain Men: Appendicitis, cholecystitis, diverticulosis, ischemic bowel, pancreatitis, hepatitis, UTI, gastroenteritis, AAA, incarcerated hernia, bowel obstruction, constipation, inflammatory bowel, hepatitis, peptic ulcer disease, splenic infarction, perforated viscus, testicular torsion, this is not meant to be an all-inclusive list (Saturnino Perez) - Consultations Consultation #1: Spoke with Dr. Barragan who agrees to admit this patient (Saturnino Perez) EKG Findings - EKG Comments: EKG Findings:: EKG is sinus 68 [address] 172 QRS 97 QTc 429 - EKG Results: EKG: interpreted by ERMD <Saturnino Perez - Last Filed: 03/08/24 23:18> Medical Decision Making <Radha Russo - Last Filed: 03/08/24 19:37> - Lab Data Result diagrams: 03/08/24 19:53 03/08/24 19:53 - Radiology Data Radiology results: report reviewed (Chest x-ray, CT chest abdomen pelvis positive for gallbladder disease and cholecystitis proven on ultrasound), image reviewed <Saturnino Perez - Last Filed: 03/08/24 23:18> - Medical Decision Making I performed the quick note portion of this chart. Electronically signed by Radha Russo PA-C (Radha Russo) 83 male will be admitted for acute cholecystitis with abdominal pain presented to the ER after recent cardiac catheterization with stent placement (Saturnino Perez) - Lab Data Lab Results 03/08/24 03/08/24 03/08/24 Range/Units 19:53 19:53 19:53 WBC 15.1 H (3.8-10.6) k/uL RBC 3.88 L (4.30-5.90) m/uL Hgb 12.3 L (13.0-17.5) gm/dL Hct 36.2 L (39.0-53.0) % MCV 93.4 (80.0-100.0) fL MCH 31.7 (25.0-35.0) pg MCHC 34.0 (31.0-37.0) g/dL RDW 14.7 (11.5-15.5) % Plt Count 244 (150-450) k/uL MPV 9.5 Neutrophils % 89 % Lymphocytes % 5 % Monocytes % 5 % Eosinophils % 1 % Basophils % 0 % Neutrophils # 13.5 H (1.3-7.7) k/uL Lymphocytes # 0.7 L (1.0-4.8) k/uL Monocytes # 0.7 (0-1.0) k/uL Eosinophils # 0.1 (0-0.7) k/uL Basophils # 0.0 (0-0.2) k/uL PT 10.9 (10.0-12.5) sec INR 1.0 (<1.2) APTT 26.8 (22.0-30.0) sec Sodium 136 L (137-145) mmol/L Potassium 3.7 (3.5-5.1) mmol/L Chloride 103 (98-107) mmol/L Carbon Dioxide 21 L (22-30) mmol/L Anion Gap 12 mmol/L BUN 17 (9-20) mg/dL Creatinine 0.76 (0.66-1.25) mg/dL Est GFR (CKD-EPI)AfAm >90 (>60 ml/min/1.73 sqM) Est GFR (CKD-EPI)NonAf 86 (>60 ml/min/1.73 sqM) Glucose 132 H (74-99) mg/dL Calcium 9.6 (8.4-10.2) mg/dL Magnesium 1.9 (1.6-2.3) mg/dL Total Bilirubin 1.8 H (0.2-1.3) mg/dL AST 29 (17-59) U/L ALT 32 (4-49) U/L Alkaline Phosphatase 119 (38-126) U/L Troponin I (0.000-0.034) ng/mL Total Protein 7.8 (6.3-8.2) g/dL Albumin 4.7 (3.5-5.0) g/dL 03/08/24 03/08/24 Range/Units 19:53 22:13 WBC (3.8-10.6) k/uL RBC (4.30-5.90) m/uL Hgb (13.0-17.5) gm/dL Hct (39.0-53.0) % MCV (80.0-100.0) fL MCH (25.0-35.0) pg MCHC (31.0-37.0) g/dL RDW (11.5-15.5) % Plt Count (150-450) k/uL MPV Neutrophils % % Lymphocytes % % Monocytes % % Eosinophils % % Basophils % % Neutrophils # (1.3-7.7) k/uL Lymphocytes # (1.0-4.8) k/uL Monocytes # (0-1.0) k/uL Eosinophils # (0-0.7) k/uL Basophils # (0-0.2) k/uL PT (10.0-12.5) sec INR (<1.2) APTT (22.0-30.0) sec Sodium (137-145) mmol/L Potassium (3.5-5.1) mmol/L Chloride (98-107) mmol/L Carbon Dioxide (22-30) mmol/L Anion Gap mmol/L BUN (9-20) mg/dL Creatinine (0.66-1.25) mg/dL Est GFR (CKD-EPI)AfAm (>60 ml/min/1.73 sqM) Est GFR (CKD-EPI)NonAf (>60 ml/min/1.73 sqM) Glucose (74-99) mg/dL Calcium (8.4-10.2) mg/dL Magnesium (1.6-2.3) mg/dL Total Bilirubin (0.2-1.3) mg/dL AST (17-59) U/L ALT (4-49) U/L Alkaline Phosphatase (38-126) U/L Troponin I 0.013 <0.012 (0.000-0.034) ng/mL Total Protein (6.3-8.2) g/dL Albumin (3.5-5.0) g/dL Disposition <Radha Russo - Last Filed: 03/08/24 19:37> Is patient prescribed a controlled substance at d/c from ED?: No Time of Disposition: 23:00 <Saturnino Perez - Last Filed: 03/08/24 23:18> Clinical Impression: Chest pain, Abdominal colic, Cholecystitis Disposition: ADMITTED IP TO THIS HOSP Condition: Fair
[2024-03-08 20:38] LABS: ALT 32 U/L (4-49); AST 29 U/L (17-59); African American GFR (CKD) >90 (>60 ml/min/1.73 sqM); Albumin 4.7 g/dL (3.5-5.0); Alkaline Phosphatase 119 U/L (38-126); Anion Gap 12 mmol/L; Blood Urea Nitrogen 17 mg/dL (9-20); Calcium 9.6 mg/dL (8.4-10.2); Carbon Dioxide 21 mmol/L (22-30); Chloride 103 mmol/L (98-107); Glucose 132 mg/dL (74-99); Magnesium 1.9 mg/dL (1.6-2.3); Non-African American GFR(CKD) 86 (>60 ml/min/1.73 sqM); Potassium 3.7 mmol/L (3.5-5.1); Sodium 136 mmol/L (137-145); Total Bilirubin 1.8 mg/dL (0.2-1.3); Total Protein 7.8 g/dL (6.3-8.2)
--- NOTE | 2024-03-08 20:43 | XR ---
EXAMINATION TYPE: XR chest 2V DATE OF EXAM: 03/08/2024 8:39 PM CLINICAL INDICATION:Male, 83 years old with history of Chest Pain; [facility] COMPARISON: Chest radiographs from 03/05/2024. TECHNIQUE: XR chest 2V Frontal view of the chest. FINDINGS: Lungs/Pleura: There is flattening of the diaphragm with increased lucency of the lungs. No evidence o f pneumothorax, pleural effusion or focal consolidation. Pulmonary vascularity: Unremarkable. Heart/mediastinum: Cardiomediastinal silhouette is unremarkable. Musculoskeletal: No acute osseous pathology. Other findings: None IMPRESSION: 1. No acute cardiopulmonary disease process. 2. COPD changes.
[2024-03-08 21:01] LABS: Basophils % (A) 0 %; Eosinophils # (A) 0.1 k/uL (0-0.7); Eosinophils % (A) 1 %; HCT 36.2 % (39.0-53.0); HGB 12.3 gm/dL (13.0-17.5); Lymphocytes # (A) 0.7 k/uL (1.0-4.8); Lymphocytes % (A) 5 %; MCH 31.7 pg (25.0-35.0); MCV 93.4 fL (80.0-100.0); Mean Platelet Volume 9.5; Monocytes # (A) 0.7 k/uL (0-1.0); Monocytes % (A) 5 %; Neutrophils # (A) 13.5 k/uL (1.3-7.7); Neutrophils % (A) 89 %; Platelet Count 244 k/uL (150-450); RBC 3.88 m/uL (4.30-5.90); RDW 14.7 % (11.5-15.5); WBC 15.1 k/uL (3.8-10.6)
[2024-03-08 21:15] LABS: Partial Thromboplastin Time 26.8 sec (22.0-30.0); Prothrombin Time 10.9 sec (10.0-12.5)
[2024-03-08] MEDS: SODIUM CHLORIDE 0.9% 1,000 ML IV STA (22:17)
[2024-03-08] MEDS: PANTOPRAZOLE 40 MG/10 ML VIAL IVP STA (22:18)
[2024-03-08] MEDS: ONDANSETRON 4 MG/2 ML VIAL IVP STA (22:21)
[2024-03-08] MEDS: HYDROmorphone 1 MG/ML 1 ML SYRINGE IVP STA (22:23)
--- NOTE | 2024-03-08 22:35 | CT ---
EXAMINATION TYPE: CT angio chest DATE OF EXAM: 03/08/2024 COMPARISON: NONE HISTORY: pt arrives to ED for upper abdominal pain x 1 day. recently have heart cath w/ stent placeme nt. pt reports N/V and SOB. CT DLP: 500 mGycm. Automated Exposure Control for Dose Reduction was Utilized. CONTRAST: CTA scan of the thorax is performed with IV Contrast, patient injected with 100 ml mL of Isovue 370, pulmonary embolism protocol. MIP Images are created on CT scanner and reviewed. FINDINGS: LUNGS: There is 4 mm peripheral nodule in the lingula axial image 73. [id number] atelectatic ch haven in the lung bases. No suspicious focal consolidation. No pleural effusion or pneumothorax seen b ilaterally. MEDIASTINUM: Suboptimal study with most dense contrast in the SVC. No CT evidence for acute pulmonar y embolism. There is a 4 vessel origin from aortic arch which is normal variant. There are no greater than 1 cm hilar or mediastinal lymph nodes. No cardiomegaly or pericardial effusion is seen. Moder ate to severe three-vessel coronary artery calcification. OTHER: Please refer to same day CT abdomen and pelvis report for complete details on the upper abdome n. Enlarged right axillary lymph nodes with surrounding fat stranding, for reference as right axillar y lymph node measuring 3.2 x 2.2 cm axial image 51. IMPRESSION: 1. No CT evidence for acute pulmonary embolism. 2. Mild to moderate atelectatic change in the lung bases. No suspicious focal consolidation. 3. Abnormal right axillary adenopathy with surrounding fat stranding. Consider infectious and/or infl ammatory etiology. Clinical correlation and follow-up advised.
--- NOTE | 2024-03-08 22:42 | CT ---
EXAMINATION TYPE: CT abdomen pelvis w con DATE OF EXAM: 03/08/2024 COMPARISON: Prior CT 2017 HISTORY: pt arrives to ED for upper abdominal pain x 1 day. recently have heart cath w/ stent placeme nt. pt reports N/V and SOB. CT DLP: 1000 mGycm, Automated Exposure Control for Dose Reduction was Utilized. CONTRAST: CT scan of the abdomen and pelvis is performed without oral and with IV Contrast, patient injected wi th 100 ml mL of Isovue 370. FINDINGS: LUNG BASES: Please refer to same day CTA chest report complete details on the lung bases. LIVER/GB:. Gallbladder is distended margins with mild adjacent fat stranding. PANCREAS: No significant abnormality is seen. SPLEEN: No significant abnormality is seen. ADRENALS: No significant abnormality is seen. KIDNEYS: No significant abnormality is seen. BOWEL: No abnormal small or large bowel dilatation. PROSTATE/SEMINAL VESICLES: No gross abnormality seen. LYMPH NODES: No greater than 1cm abdominal or pelvic lymph nodes are appreciated. OSSEOUS STRUCTURES: Grade 1 anterolisthesis L4 on L5. [id number] disc space narrowing and vacuu m disc phenomenon at the L4-L5 level and L5-S1 levels. Bridging osteophytes in the lower thoracic spi ne. OTHER: No significant additional abnormality is seen. IMPRESSION: 1. Possible acute cholecystitis, correlate clinically. Consider ultrasound or HIDA scan to further ev aluate based on clinical correlation.
[2024-03-08] MEDS ORDERED: NALOXONE 0.4 MG/ML 1 ML VIAL IV PRN (23:08)
--- NOTE | 2024-03-08 23:19 | US ---
EXAMINATION TYPE: US gallbladder DATE OF EXAM: 03/08/2024 COMPARISON: CT 03/08/2024 CLINICAL INDICATION: Male, 83 years old with history of pain; Patient states abdominal pain TECHNIQUE: Multiple sonographic images of the right upper quadrant are obtained. FINDINGS: EXAM MEASUREMENTS: Liver Length: 15.5 cm Gallbladder Wall: 0.3 cm CBD: unable to visualize cm Right Kidney: 12.1 x 5.9 x 5.1 cm COMMUNITY DEVELOPMENT OFFICER NOTES:Limited due to overlying bowel gas and patient body habitus Pancreas: Visualized portions appear slightly echogenic. Pancreatic duct visualized, measures 3mm. T ail obscured by gas Liver: Difficult to visualize, however visualized portions appear WNL as best seen Gallbladder: Hydropic measuring 10.1cm in length. Visualized portion of GB wall appears upper limits of normal Evidence for sonographic Antoine's sign: No CBD: Obscured by overlying bowel gas Right Kidney: There is a possible 1.1 x 1.5cm anechoic area seen mid right kidney. Suboptimal study due to overlying bowel gas and patient's body habitus per technologist. Visualized p ortions of pancreas unremarkable. Visualized liver is slightly heterogeneous in echotexture. Gallblad torsten has distended margins. No shadowing mobile gallstones. No abnormal wall thickening. No right-side d hydronephrosis. IMPRESSION: No internal gallstones or ultrasound evidence for acute cholecystitis.
[2024-03-09] MEDS: AMPICILLIN-SULBACTAM 3 GM in SODIUM CHLORIDE 0.9% 100 ML IVPB STA (00:04)
[2024-03-09] MEDS: SODIUM CHLORIDE 0.9% 1,000 ML IV SCH (00:08)
[2024-03-09] MEDS: HYDROmorphone 1 MG/ML 1 ML SYRINGE IVP PRN (03:48)
[2024-03-09 07:45] LABS: Basophils % (A) 0 %; Eosinophils % (A) 0 %; HCT 35.3 % (39.0-53.0); HGB 11.5 gm/dL (13.0-17.5); Lymphocytes # (A) 0.4 k/uL (1.0-4.8); Lymphocytes % (A) 4 %; MCH 31.2 pg (25.0-35.0); MCHC 32.5 g/dL (31.0-37.0); MCV 95.8 fL (80.0-100.0); Monocytes # (A) 0.6 k/uL (0-1.0); Monocytes % (A) 5 %; Neutrophils # (A) 10.3 k/uL (1.3-7.7); Neutrophils % (A) 91 %; Platelet Count 258 k/uL (150-450); RBC 3.69 m/uL (4.30-5.90); RDW 14.8 % (11.5-15.5); WBC 11.4 k/uL (3.8-10.6)
[2024-03-09 08:09] LABS: ALT 41 U/L (4-49); AST 40 U/L (17-59); African American GFR (CKD) >90 (>60 ml/min/1.73 sqM); Albumin 4.1 g/dL (3.5-5.0); Alkaline Phosphatase 107 U/L (38-126); Anion Gap 7 mmol/L; Blood Urea Nitrogen 14 mg/dL (9-20); Carbon Dioxide 26 mmol/L (22-30); Chloride 102 mmol/L (98-107); Glucose 135 mg/dL (74-99); Non-African American GFR(CKD) 89 (>60 ml/min/1.73 sqM); Potassium 4.2 mmol/L (3.5-5.1); Sodium 135 mmol/L (137-145); Total Bilirubin 2.2 mg/dL (0.2-1.3)
[2024-03-09] MEDS: PANTOPRAZOLE 40 MG/10 ML VIAL IV SCH (08:21)
[2024-03-09] MEDS: AMPICILLIN-SULBACTAM 3 GM in SODIUM CHLORIDE 0.9% 100 ML IVPB SCH (08:27)
--- NOTE | 2024-03-09 12:40 | P.CONS ---
History of Present Illness - Reason for Consult Consult date: 03/09/24 Medical management Requesting physician: Santo Castillo - Chief Complaint Right upper quadrant abdominal pain - History of Present Illness This is a 83-year-old gentleman with past medical history significant for recent cardiac catheterization with stenting on 03/06/2024;50 to 60% ostial LAD, 50 to 60% mid LAD, 80% OM1, 30% proximal RCA stenosis,PCI of the OM1 with LIZZY. 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 Attempted two sublingual nitroglycerin without relief. Nausea and vomiting subsided. Denies lightheadedness dizziness or focal deficits.Chest x-ray reported no acute cardiopulmonary disease process, COPD changes. Chest CTA reported no evidence for PE, mild to moderate atelectatic change in the lung bases, no suspicious focal consolidation, abnormal right axillary adenopathy with surrounding fat stranding. Blood cultures obtained ,Unasyn initiated in the ER.Follow-up MRI abdomen and pelvis CT reported possible acute cholecystitis.Gallbladder ultrasound reported suboptimal study due to overlying bowel gas and patient's body habitus, no and terminal gallstones or ultrasound evidence for acute cholecystitis. Afebrile, WBC 11 point 0.4 decreased from 15.1 on admission, hemoglobin 11.5, MCV 95.8, platelets 258, INR 1, electrolytes, renal function stable. T. bili 1.8, 2.2. Denies chest pain, palpitations or shortness of breath. Troponin negative x 2. Maintaining O2 sats in the mid 90s on room air. Review of Systems ROS Statement: Those systems with pertinent positive or pertinent negative responses have been documented in the HPI. ROS Other: All systems not noted in ROS Statement are negative. Past Medical History Past Medical History: Hyperlipidemia, Hypertension Additional Past Medical History / Comment(s): Sees pulmomologist for "plugged up lungs" History of Any Multi-Drug Resistant Organisms: MRSA Year Discovered:: 2014 MDRO Source:: left axilla Past Surgical History: Orthopedic Surgery Additional Past Surgical History / Comment(s): Cataracts, heart cath w/ stent placement Past Anesthesia/Blood Transfusion Reactions: No Reported Reaction Past Psychological History: No Psychological Hx Reported Smoking Status: Former smoker Past Alcohol Use History: Occasional Past Drug Use History: None Reported - Past Family History Brother(s) Family Medical History: Myocardial Infarction ([place]) Father History Unknown: Yes Family Medical History: No Reported History Additional Family Medical History / Comment(s): of old age Mother Family Medical History: No Reported History Medications and Allergies Home Medications Medication Instructions Recorded Confirmed Type Aspirin EC [Ecotrin Low Dose] 81 mg PO DAILY 11/25/16 03/09/24 History Atorvastatin [Lipitor] 20 mg PO HS 12/24/23 03/09/24 History Triamcinolone 0.025% Cream 1 applic TOPICAL DAILY 12/24/23 03/09/24 History [Kenalog 0.025% Cream] amLODIPine [Norvasc] 5 mg PO HS 12/24/23 03/09/24 History hydroCHLOROthiazide [Hydrodiuril] 25 mg PO DAILY 12/24/23 03/09/24 History Vit C/E/Zn/Coppr/Lutein/Zeaxan 2 cap PO DAILY 03/05/24 03/09/24 History [Preservision Areds 2 Softgel] methocarbamoL [Robaxin] 500 mg PO DAILY 03/05/24 03/09/24 History Metoprolol Succinate (ER) [Toprol 12.5 mg PO DAILY #45 tab 03/07/24 03/09/24 Rx XL] Nitroglycerin Sl Tabs [Nitrostat] 0.4 mg SUBLINGUAL Q5M PRN #25 tab 03/07/24 03/09/24 Rx Ticagrelor [Brilinta] 90 mg PO BID #180 tab 03/07/24 03/09/24 Rx Allergies Allergy/AdvReac Type Severity Reaction Status Date / Time No Known Allergies Allergy Verified 03/09/24 07:17 Physical Exam Vitals: Vital Signs Temp Pulse Resp BP Pulse Ox 03/09/24 07:44 97.9 F 68 16 139/69 97 03/09/24 06:36 70 18 134/59 94 L 03/09/24 00:11 67 16 144/69 93 L 03/08/24 22:26 67 18 153/73 96 03/08/24 19:30 97.6 F 69 19 199/74 99 Intake and Output 03/08/24 03/09/24 03/09/24 22:59 06:59 14:59 Other: Voiding Method Toilet Weight 95.254 kg PHYSICAL EXAM: GENERAL: Alert and oriented x 3, sitting up in bed, no acute distress. Vital signs reviewed HEENT: Normocephalic, atraumatic ,conjunctivae normal. eyes normal. NECK: Supple, no JVD. Right anterior cervical mass. Right axillary adenopathy CARDIOVASCULAR: S1, S2 regular. No murmur RESPIRATION: Unlabored, equal air entry ,breath sounds diminished in the bases. No rhonchi or crackles. No bronchial breathing. ABDOMEN: Soft, nondistended, nontender . No guarding. no masses palpable. No a scites, No hepatosplenomegaly.Bowel sounds heard. LEGS: No edema. no swelling NERVOUS SYSTEM: Cranial N 2-12 grossly normal. No focal deficits. Strength and sensation grossly intact. Skin: Warm and dry, no rash Results CBC & Chem 7: 03/09/24 06:16 03/09/24 06:16 Labs: Abnormal Lab Results - Last 24 Hours (Table) 03/08/24 03/08/24 03/09/24 Range/Units 19:53 19:53 06:16 WBC 15.1 H 11.4 H (3.8-10.6) k/uL RBC 3.88 L 3.69 L (4.30-5.90) m/uL Hgb 12.3 L 11.5 L (13.0-17.5) gm/dL Hct 36.2 L 35.3 L (39.0-53.0) % Neutrophils # 13.5 H 10.3 H (1.3-7.7) k/uL Lymphocytes # 0.7 L 0.4 L (1.0-4.8) k/uL Sodium 136 L (137-145) mmol/L Carbon Dioxide 21 L (22-30) mmol/L Glucose 132 H (74-99) mg/dL Total Bilirubin 1.8 H (0.2-1.3) mg/dL 03/09/24 Range/Units 06:16 WBC (3.8-10.6) k/uL RBC (4.30-5.90) m/uL Hgb (13.0-17.5) gm/dL Hct (39.0-53.0) % Neutrophils # (1.3-7.7) k/uL Lymphocytes # (1.0-4.8) k/uL Sodium 135 L (137-145) mmol/L Carbon Dioxide (22-30) mmol/L Glucose 135 H (74-99) mg/dL Total Bilirubin 2.2 H (0.2-1.3) mg/dL Assessment and Plan Assessment: Right upper quadrant pain, acute cholecystitis as per general surgery, elevated T. 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 Oncology consulted Enlarged right axillary adenopathy with surrounding fat stranding, right axillary lymph node measuring 3.2 x 2.2 cm, reported per CTA 4 mm peripheral nodule in the lingula reported per CTA CAD status post recent cardiac cath. 03/06/2024,50 to 60% ostial LAD, 50 to 60% mid LAD, 80% OM1, 30% proximal RCA stenosis,PCI of the OM1 with LIZZY. Brilinta initiated and continues on aspirin for dual antiplatelet therapy for 12 months. Hypertension Dyslipidemia Carotid atherosclerosis, mild to moderate Sick sinus syndrome Family history of coronary artery disease Plan: Continue on current medication regime, monitoring and symptomatic treatment. Patient is a very recent cath with stent, discharged on 03/07/2024. Do not stop patient's Brilinta and aspirin. Cardiology consulted. Oncology consulted for recent right neck mass core biopsy reporting possible T- cell lymphoma with final assessment from [facility] pending, right axillary adenopathy. Both family and patient are aware of these results. oncology con sulted. Close monitoring of T. bili/LFTs with repeat CMP in a.m. ordered. prognosis guarded given multiple complex medical issues. The impression and plan of care has been dictated as directed. : I performed a history and examination of this patient, discussed the same with the dictator. I agree with the dictator's note ,documented as a scribe. Any additional findings or plans will be noted.
[2024-03-09] MEDS: ASPIRIN 81 MG PO SCH (13:05)
[2024-03-09] MEDS: METOPROLOL SUCCINATE (ER) 25 MG TAB.ER.24H PO SCH (13:05)
[2024-03-09] MEDS: TICAGRELOR 90 MG TAB PO SCH (13:05)
--- NOTE | 2024-03-09 16:06 | P.GSHP ---
History of Present Illness H&P Date: 03/09/24 CHIEF COMPLAINT: Abdominal pain HISTORY OF PRESENT ILLNESS: This is a 83-year-old male who presented the hospital with complaints of right upper quadrant abdominal pain. Patient reports symptoms had started Thursday initially with chest pain and right upper quadrant pain. He had come into the ER and required to have a heart catheterization with stent placed on March 06, 2024 and has been on Brilinta for anticoagulation. Patient was discharged home on the and symptoms of the right upper quadrant pain returned. Patient had CT scan with evidence of possible acute cholecystitis with distended gallbladder and fat stranding. Ultrasound had reported hydropic gallbladder. CTA was negative for a PE. Patient also has a new diagnosis of lymphoma. PAST MEDICAL HISTORY: CAD, Hyperlipidemia, Hypertension PAST SURGICAL HISTORY: Heart cath with stent placed March 06, 2024 MEDICATIONS: See below ALLERGIES: See below SOCIAL HISTORY: No illicit drug use. REVIEW OF SYSTEMS: CONSTITUTIONAL: Denies fever or chills. HEENT: Denies blurred vision, vision changes, or eye pain. Denies hemoptysis CARDIOVASCULAR: Denies chest pain or pressure. RESPIRATORY: No shortness of breath. GASTROINTESTINAL: See HPI for pertinent findings HEMATOLOGIC: Denies bleeding disorders. GENITOURINARY: Denies any blood in urine or increased urinary frequency. SKIN: Denies pruitis. Denies rash. PHYSICAL EXAM: VITAL SIGNS: Reviewed GENERAL: Well-developed in no acute distress. HEENT: No sclera icterus. Extraocular movements grossly intact. Moist buccal mucosa. Head is atraumatic, normocephalic. No nasal drainage. ABDOMEN: Soft. Nondistended. Right upper quadrant tenderness NEUROLOGIC: Alert and oriented. Cranial nerves II through XII grossly intact. LABORATORY DATA: WBC 15.1 down to 11.4 Hgb 11.5 platelets 258 Sodium 135 potassium is 4.2 creatinine 0.70 Total bilirubin 2.2 AST 40 ALT 41 alk phos 107 Troponin negative x 2 IM[address]ING: CT scan abdomen pelvis reporting possible acute cholecystitis Gallbladder ultrasound no internal gallstones or ultrasound evidence for acute cholecystitis. Hydropic gallbladder Chest CTA negative for PE. Mild to moderate atelectatic change at the lung base. Abnormal right axillary adenopathy with surrounding fat stranding ASSESSMENT: 1. Acute cholecystitis 2. Hydropic gallbladder reported on ultrasound 3. Coronary artery disease with recent heart catheterization and stent placement on March 06, 2024. Patient has been on Brilinta 4. New diagnosis of lymphoma PLAN: -No surgical intervention planned at this time due to patient being on anticoagulation and recent heart catheterization 3 days ago -Start low-fat diet -Continue IV antibiotics -Continue to monitor -Medicine service and cardiology on consult -Continue supportive care Physician Cutter Operator Brick note has been reviewed by physician. Signing provider agrees with the documented findings, assessment, and plan of care. Past Medical History Past Medical History: Hyperlipidemia, Hypertension Additional Past Medical History / Comment(s): Sees pulmomologist for "plugged up lungs" History of Any Multi-Drug Resistant Organisms: MRSA Date of last positivie culture/infection: 2014 MDRO Source:: left axilla Past Surgical History: Orthopedic Surgery Additional Past Surgical History / Comment(s): Cataracts, heart cath w/ stent placement Past Anesthesia/Blood Transfusion Reactions: No Reported Reaction Past Psychological History: No Psychological Hx Reported Smoking Status: Former smoker Past Alcohol Use History: Occasional Past Drug Use History: None Reported - Past Family History Brother(s) Family Medical History: Myocardial Infarction ([place]) Father History Unknown: Yes Family Medical History: No Reported History Additional Family Medical History / Comment(s): of old age Mother Family Medical History: No Reported History Medications and Allergies Home Medications Medication Instructions Recorded Confirmed Type Aspirin EC [Ecotrin Low Dose] 81 mg PO DAILY 11/25/16 03/09/24 History Atorvastatin [Lipitor] 20 mg PO HS 12/24/23 03/09/24 History Triamcinolone 0.025% Cream 1 applic TOPICAL DAILY 12/24/23 03/09/24 History [Kenalog 0.025% Cream] amLODIPine [Norvasc] 5 mg PO HS 12/24/23 03/09/24 History hydroCHLOROthiazide [Hydrodiuril] 25 mg PO DAILY 12/24/23 03/09/24 History Vit C/E/Zn/Coppr/Lutein/Zeaxan 2 cap PO DAILY 03/05/24 03/09/24 History [Preservision Areds 2 Softgel] methocarbamoL [Robaxin] 500 mg PO DAILY 03/05/24 03/09/24 History Metoprolol Succinate (ER) [Toprol 12.5 mg PO DAILY #45 tab 03/07/24 03/09/24 Rx XL] Nitroglycerin Sl Tabs [Nitrostat] 0.4 mg SUBLINGUAL Q5M PRN #25 tab 03/07/24 03/09/24 Rx Ticagrelor [Brilinta] 90 mg PO BID #180 tab 03/07/24 03/09/24 Rx Allergies Allergy/AdvReac Type Severity Reaction Status Date / Time No Known Allergies Allergy Verified 03/09/24 07:17 Surgical - Exam Vital Signs Temp Pulse Resp BP Pulse Ox 97.6 F 69 19 199/74 99 03/08/24 19:30 03/08/24 19:30 03/08/24 19:30 03/08/24 19:30 03/08/24 19:30 Results - Labs 03/09/24 06:16 03/09/24 06:16 Abnormal Lab Results - Last 24 Hours (Table) 03/08/24 03/08/24 03/09/24 Range/Units 19:53 19:53 06:16 WBC 15.1 H 11.4 H (3.8-10.6) k/uL RBC 3.88 L 3.69 L (4.30-5.90) m/uL Hgb 12.3 L 11.5 L (13.0-17.5) gm/dL Hct 36.2 L 35.3 L (39.0-53.0) % Neutrophils # 13.5 H 10.3 H (1.3-7.7) k/uL Lymphocytes # 0.7 L 0.4 L (1.0-4.8) k/uL Sodium 136 L (137-145) mmol/L Carbon Dioxide 21 L (22-30) mmol/L Glucose 132 H (74-99) mg/dL Total Bilirubin 1.8 H (0.2-1.3) mg/dL 03/09/24 Range/Units 06:16 WBC (3.8-10.6) k/uL RBC (4.30-5.90) m/uL Hgb (13.0-17.5) gm/dL Hct (39.0-53.0) % Neutrophils # (1.3-7.7) k/uL Lymphocytes # (1.0-4.8) k/uL Sodium 135 L (137-145) mmol/L Carbon Dioxide (22-30) mmol/L Glucose 135 H (74-99) mg/dL Total Bilirubin 2.2 H (0.2-1.3) mg/dL Diabetes panel 03/08/24 03/09/24 Range/Units 19:53 06:16 Sodium 136 L 135 L (137-145) mmol/L Potassium 3.7 4.2 (3.5-5.1) mmol/L Chloride 103 102 (98-107) mmol/L Carbon Dioxide 21 L 26 (22-30) mmol/L BUN 17 14 (9-20) mg/dL Creatinine 0.76 0.70 (0.66-1.25) mg/dL Glucose 132 H 135 H (74-99) mg/dL Calcium 9.6 9.0 (8.4-10.2) mg/dL AST 29 40 (17-59) U/L ALT 32 41 (4-49) U/L Alkaline Phosphatase 119 107 (38-126) U/L Total Protein 7.8 7.0 (6.3-8.2) g/dL Albumin 4.7 4.1 (3.5-5.0) g/dL Calcium panel 03/08/24 03/09/24 Range/Units 19:53 06:16 Calcium 9.6 9.0 (8.4-10.2) mg/dL Albumin 4.7 4.1 (3.5-5.0) g/dL Pituitary panel 03/08/24 03/09/24 Range/Units 19:53 06:16 Sodium 136 L 135 L (137-145) mmol/L Potassium 3.7 4.2 (3.5-5.1) mmol/L Chloride 103 102 (98-107) mmol/L Carbon Dioxide 21 L 26 (22-30) mmol/L BUN 17 14 (9-20) mg/dL Creatinine 0.76 0.70 (0.66-1.25) mg/dL Glucose 132 H 135 H (74-99) mg/dL Calcium 9.6 9.0 (8.4-10.2) mg/dL Adrenal panel 03/08/24 03/09/24 Range/Units 19:53 06:16 Sodium 136 L 135 L (137-145) mmol/L Potassium 3.7 4.2 (3.5-5.1) mmol/L Chloride 103 102 (98-107) mmol/L Carbon Dioxide 21 L 26 (22-30) mmol/L BUN 17 14 (9-20) mg/dL Creatinine 0.76 0.70 (0.66-1.25) mg/dL Glucose 132 H 135 H (74-99) mg/dL Calcium 9.6 9.0 (8.4-10.2) mg/dL Total Bilirubin 1.8 H 2.2 H (0.2-1.3) mg/dL AST 29 40 (17-59) U/L ALT 32 41 (4-49) U/L Alkaline Phosphatase 119 107 (38-126) U/L Total Protein 7.8 7.0 (6.3-8.2) g/dL Albumin 4.7 4.1 (3.5-5.0) g/dL
[2024-03-09] MEDS: VIT A,C & E-LUTEIN-MINERALS 1 EACH TAB PO SCH (17:45)
[2024-03-09] MEDS: methocarbamoL 500 MG TAB PO SCH (17:45)
[2024-03-09] MEDS: TRIAMCINOLONE ACET 0.5% CREAM 15 GM TUBE TOPICAL SCH (17:45)
[2024-03-09] MEDS: ATORVASTATIN 20 MG TAB PO SCH (21:17)
[2024-03-09] MEDS: amLODIPine 5 MG TAB PO SCH (21:17)
[2024-03-10] MEDS: NITROGLYCERIN SL TABS 0.4 MG TAB SUBLINGUAL PRN (00:10)
[2024-03-10 08:48] LABS: Basophils # (A) 0.1 k/uL (0-0.2); Basophils % (A) 0 %; Eosinophils % (A) 0 %; HCT 32.1 % (39.0-53.0); HGB 10.5 gm/dL (13.0-17.5); Lymphocytes # (A) 0.5 k/uL (1.0-4.8); Lymphocytes % (A) 2 %; MCH 31.5 pg (25.0-35.0); MCHC 32.8 g/dL (31.0-37.0); MCV 95.9 fL (80.0-100.0); Mean Platelet Volume 9.7; Monocytes # (A) 1.1 k/uL (0-1.0); Monocytes % (A) 5 %; Neutrophils # (A) 19.4 k/uL (1.3-7.7); Neutrophils % (A) 91 %; Platelet Count 251 k/uL (150-450); RBC 3.35 m/uL (4.30-5.90); RDW 14.8 % (11.5-15.5); WBC 21.3 k/uL (3.8-10.6)
[2024-03-10] MEDS: hydroCHLOROthiazide 25 MG TAB PO SCH (09:10)
[2024-03-10 09:18] LABS: ALT 37 U/L (10-49); AST 26 U/L (14-35); Albumin 3.9 g/dL (3.8-4.9); Alkaline Phosphatase 109 U/L (41-126); BUN/Creat Ratio 18.73 Ratio (12.00-20.00); Blood Urea Nitrogen 20.6 mg/dL (9.0-27.0); Calcium 8.5 mg/dL (8.7-10.3); Carbon Dioxide 21.3 mmol/L (21.6-31.8); Chloride 97 mmol/L (96-109); Globulin 2.6 g/dL (1.6-3.3); Glucose 133 mg/dL (70-110); Potassium 3.6 mmol/L (3.5-5.5); Sodium 133 mmol/L (135-145); Total Bilirubin 2.1 mg/dL (0.3-1.2); Total Protein 6.5 g/dL (6.2-8.2)
[2024-03-10] MEDS ORDERED: HEPARIN SODIUM 1,000 UN/ML (10ML VL) IV PRN (13:06)
--- NOTE | 2024-03-10 13:06 | P.CRDCN ---
History of Present Illness History of present illness: This is an 83-year-old male patient of Dr. Ayala with past medical history of angina with chest tightness with exertion, hypertension, dyslipidemia, mild to moderate carotid atherosclerosis, and SVT2 brief runs, sick sinus syndrome, CAD s/p PCI OM1, macular degeneration, family history of coronary artery disease. We have been asked to evaluate the patient for chest pain. Patient was last seen in the office on September 03, 2023, at that time losartan was increased, advised weight loss and Holter monitor was ordered which has not been completed. patient had been seen 5 days ago for episodes of chest pain some of which were resolved with nitro. Therefore heart catheterization was performed which showed CAD involving the OM1 branch as well as mid LAD. Mid LAD appeared more moderate and therefore treated medically however iFR of OM1 was grossly abnormal and therefore a stent was placed. Patient unfortunately has been having more episodes of abdominal pain which she states is in fact similar to what he was having before. He is having more nausea and upset stomach. Therefore blood work performed which shows show elevated bilirubin and CT concerning for cholecystitis. Abdominal ultrasound does not show any significant gallstones. White blood cell increase that to 21 and currently concern of sepsis. Physical examination: Gen: This is an 83-year-old male in no acute distress. VS: reviewed HEENT: Head is atraumatic, normocephalic. Pupils equal, round. Sclerae is anicteric. NECK: Supple. No JVD. LUNGS: Clear to auscultation. No wheezes or rhonchi. No intercostal retractions. HEART: Regular rate and rhythm. No murmur. ABDOMEN: Soft No tenderness. EXTREMITIES: No pedal edema. No calf tenderness. NEUROLOGICAL: Patient is awake, alert and oriented x3. Assessment: CAD status post PCI of OM1 acute cholecystitis Hypertension Dyslipidemia Carotid atherosclerosis, mild to moderate SVT2 brief runs Sick sinus syndrome Family history of coronary artery disease Plan: Unfortunately patient having signs and symptoms consistent with cholecystitis. He does appear septic with increased white blood cell count. We discussed with surgery team. He only recently had stent to OM1 branch. This was somewhat smaller caliber vessel and there is some increased risk of stent thrombosis with discontinuation of antiplatelet. Patient however significantly septic and risks versus benefits discussed. We will hold his Brilinta and start patient on a heparin drip. Ideally conservative management if his abdominal pain improves however if worsens then benefits may outweigh risks and patient may need to go to surgery. For now hold Brilinta and start patient on a heparin drip and continue aspirin throughout the periprocedural timing. Past Medical History Past Medical History: Hyperlipidemia, Hypertension Additional Past Medical History / Comment(s): Sees pulmomologist for "plugged up lungs" History of Any Multi-Drug Resistant Organisms: MRSA Date of last positivie culture/infection: 2014 MDRO Source:: left axilla Past Surgical History: Orthopedic Surgery Additional Past Surgical History / Comment(s): Cataracts, heart cath w/ stent placement Past Anesthesia/Blood Transfusion Reactions: No Reported Reaction Past Psychological History: No Psychological Hx Reported Smoking Status: Former smoker Past Alcohol Use History: Occasional Past Drug Use History: None Reported - Past Family History Brother(s) Family Medical History: Myocardial Infarction (MS) Father History Unknown: Yes Family Medical History: No Reported History Additional Family Medical History / Comment(s): of old age Mother Family Medical History: No Reported History Medications and Allergies Home Medications Medication Instructions Recorded Confirmed Type Aspirin EC [Ecotrin Low Dose] 81 mg PO DAILY 11/25/16 03/09/24 History Atorvastatin [Lipitor] 20 mg PO HS 12/24/23 03/09/24 History Triamcinolone 0.025% Cream 1 applic TOPICAL DAILY 12/24/23 03/09/24 History [Kenalog 0.025% Cream] amLODIPine [Norvasc] 5 mg PO HS 12/24/23 03/09/24 History hydroCHLOROthiazide [Hydrodiuril] 25 mg PO DAILY 12/24/23 03/09/24 History Vit C/E/Zn/Coppr/Lutein/Zeaxan 2 cap PO DAILY 03/05/24 03/09/24 History [Preservision Areds 2 Softgel] methocarbamoL [Robaxin] 500 mg PO DAILY 03/05/24 03/09/24 History Metoprolol Succinate (ER) [Toprol 12.5 mg PO DAILY #45 tab 03/07/24 03/09/24 Rx XL] Nitroglycerin Sl Tabs [Nitrostat] 0.4 mg SUBLINGUAL Q5M PRN #25 tab 03/07/24 03/09/24 Rx Ticagrelor [Brilinta] 90 mg PO BID #180 tab 03/07/24 03/09/24 Rx Allergies Allergy/AdvReac Type Severity Reaction Status Date / Time No Known Allergies Allergy Verified 03/09/24 07:17 Physical Exam Vitals: Vital Signs Temp Pulse Pulse Resp BP BP BP 03/10/24 08:00 84 03/10/24 07:00 98.9 F 84 18 136/65 03/10/24 02:00 99.5 F 77 18 134/63 03/10/24 00:08 98.4 F 73 145/62 03/09/24 22:32 98.8 F 71 18 119/71 03/09/24 22:01 68 18 118/68 03/09/24 21:13 71 16 120/64 03/09/24 18:35 98.3 F 70 14 102/59 03/09/24 17:30 74 16 111/69 Pulse Ox 03/10/24 08:00 03/10/24 07:00 96 03/10/24 02:00 95 03/10/24 00:08 95 03/09/24 22:32 95 03/09/24 22:01 93 L 03/09/24 21:13 97 03/09/24 18:35 94 L 03/09/24 17:30 98 Intake and Output 03/09/24 03/10/24 03/10/24 22:59 06:59 14:59 Intake Total 120 Output Total 550 Balance -430 Intake: Oral 120 Output: Urine 550 Other: Voiding Method Toilet Weight 95.254 kg Results 03/10/24 04:49 03/10/24 04:49 Cardiac Enzymes 03/10/24 Range/Units 04:49 AST 26 (14-35) U/L CBC 03/10/24 Range/Units 04:49 WBC 21.3 H (3.8-10.6) k/uL RBC 3.35 L (4.30-5.90) m/uL Hgb 10.5 L (13.0-17.5) gm/dL Hct 32.1 L (39.0-53.0) % Plt Count 251 (150-450) k/uL Comprehensive Metabolic Panel 03/10/24 Range/Units 04:49 Sodium 133 L (135-145) mmol/L Potassium 3.6 (3.5-5.5) mmol/L Chloride 97 (96-109) mmol/L Carbon Dioxide 21.3 L (21.6-31.8) mmol/L BUN 20.6 (9.0-27.0) mg/dL Creatinine 1.1 (0.6-1.5) mg/dL Glucose 133 H (70-110) mg/dL Calcium 8.5 L (8.7-10.3) mg/dL AST 26 (14-35) U/L ALT 37 (10-49) U/L Alkaline Phosphatase 109 (41-126) U/L Total Protein 6.5 (6.2-8.2) g/dL Albumin 3.9 (3.8-4.9) g/dL Current Medications Generic Name Dose Route Start Last Admin Trade Name Freq PRN Reason Stop Dose Admin Amlodipine Besylate 5 mg 03/09/24 21:00 03/09/24 21:17 Amlodipine 5 Mg Tab PO 5 mg HS KALE Administration Aspirin 81 mg 03/09/24 12:30 03/10/24 09:09 Aspirin 81 Mg PO 81 mg DAILY KALE Administration Atorvastatin Calcium 20 mg 03/09/24 21:00 03/09/24 21:17 Atorvastatin 20 Mg Tab PO 20 mg HS KALE Administration Hydrochlorothiazide 25 mg 03/10/24 09:00 03/10/24 09:10 Hydrochlorothiazide 25 Mg Tab PO 25 mg DAILY KALE Administration Hydromorphone HCl 1 mg 03/08/24 23:08 03/09/24 21:16 Hydromorphone 1 Mg/Ml 1 Ml Syringe IVP 1 mg Q3HR PRN Administration Severe Pain (Scale 7 to 10) Sodium Chloride 1,000 mls @ 75 mls/hr 03/08/24 23:15 03/09/24 23:30 Saline 0.9% IV 75 mls/hr .[id number] KALE Administration Ampicillin Sodium/Sulbactam 100 mls @ 200 mls/hr 03/09/24 08:00 03/10/24 09:10 Sodium 3 gm/ Sodium Chloride IVPB 200 mls/hr Q8HR KALE Administration Protocol Methocarbamol 500 mg 03/09/24 15:15 03/10/24 09:31 Methocarbamol 500 Mg Tab PO 500 mg DAILY KALE Administration Metoprolol Succinate 12.5 mg 03/09/24 12:30 03/10/24 09:09 Metoprolol Succinate (Er) 25 Mg Tab.Er.24h PO 12.5 mg DAILY KALE Administration Multivitamins/Minerals 2 each 03/09/24 15:15 03/10/24 09:11 Vit A,C & X-Obably-Xvapiwts 1 Each Tab PO 2 each DAILY KALE Administration Naloxone HCl 0.2 mg 03/08/24 23:08 Naloxone 0.4 Mg/Ml 1 Ml Vial IV Q2M PRN Opioid Reversal Nitroglycerin 0.4 mg 03/09/24 15:07 03/10/24 00:16 Nitroglycerin Sl Tabs 0.4 Mg Tab SUBLINGUAL 0.4 mg Q5M PRN Administration Chest Pain Ondansetron HCl 4 mg 03/08/24 23:08 Ondansetron 4 Mg/2 Ml Vial IVP Q8HR PRN Nausea And Vomiting Pantoprazole Sodium 40 mg 03/09/24 09:00 03/10/24 09:10 Pantoprazole 40 Mg/10 Ml Vial IV 40 mg DAILY KALE Administration Ticagrelor 90 mg 03/09/24 12:30 03/10/24 09:31 Ticagrelor 90 Mg Tab PO 90 mg BID KALE Administration Triamcinolone Acetonide 1 applic 03/09/24 15:15 03/10/24 09:11 Triamcinolone Acet 0.5% Cream 15 Gm Tube TOPICAL 1 applic DAILY KALE Administration Intake and Output 03/09/24 03/10/24 03/10/24 22:59 06:59 14:59 Intake Total 120 Output Total 550 Balance -430 Intake: Oral 120 Output: Urine 550 Other: Voiding Method Toilet Weight 95.254 kg 03/10/24 04:49 03/10/24 04:49
--- NOTE | 2024-03-10 13:22 | P.PN ---
Subjective 03/09:This is a 83-year-old gentleman with past medical history significant for recent cardiac catheterization with stenting on 03/06/2024;50 to 60% ostial LAD, 50 to 60% mid LAD, 80% OM1, 30% proximal RCA stenosis,PCI of the OM1 with LIZZY. 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 Attempted two sublingual nitroglycerin without relief. Nausea and vomiting subsided. Denies lightheadedness dizziness or focal deficits.Chest x-ray reported no acute cardiopulmonary disease process, COPD changes. Chest CTA reported no evidence for PE, mild to moderate atelectatic change in the lung bases, no suspicious focal consolidation, abnormal right axillary adenopathy with surrounding fat stranding. Blood cultures obtained ,Unasyn initiated in the ER.Follow-up MRI abdomen and pelvis CT reported possible acute cholecystitis.Gallbladder ultrasound reported suboptimal study due to overlying bowel gas and patient's body habitus, no and terminal gallstones or ultrasound evidence for acute cholecystitis. Afebrile, WBC 11 point 0.4 decreased from 15.1 on admission, hemoglobin 11.5, MCV 95.8, platelets 258, INR 1, electrolytes, renal function stable. T. bili 1.8, 2.2. Denies chest pain, palpitations or shortness of breath. Troponin negative x 2. Maintaining O2 sats in the mid 90s on room air. March 10, 2024: Patient seen and evaluated today. He continues to have right upper quadrant pain. Continues show she signs of acute cholecystitis. Cardiology is seeing him and discontinue his Brilinta and believe that if medical management fails he can undergo surgery but that there is a risk of clotting of his small obtuse marginal stent he had placed 5 days ago. Currently his vital signs show he is afebrile heart rate respiratory rate normal blood pressure is controlled. Laboratory studies show increasing white count now at 21.3 hemoglobin 10.5 there is a left shift with a 19.4 absolute neutrophils, chemistries show a slight hyponatremia at 133. BUN and creatinine essentially normal his bilirubin is elevated at 2.2 Regarding his T-cell lymphoma biopsy at the right neck mass, oncology has seen him their note is pending. Zach is complains of some right upper quadrant pain. He has been n.p.o. since 9 PM last night. He does want to eat a little something Objective - Vital Signs Vital signs: Vital Signs Temp 98.9 F 03/10/24 07:00 Pulse 84 03/10/24 08:00 Resp 18 03/10/24 07:00 BP 136/65 03/10/24 07:00 Pulse Ox 96 03/10/24 07:00 FiO2 Intake & Output 03/09/24 03/10/24 03/10/24 18:59 06:59 18:59 Intake Total 120 Output Total 550 Balance -430 Weight 95.254 kg Intake: Oral 120 Output: Urine 550 Other: Voiding Method Toilet - Exam General: The patient is awake and alert, in mild distress due to right upper quadrant pain Neck: The neck is supple, there is no thyromegaly, lymphadenopathy, tenderness or JVD. Cardiovascular: S1S2 is normal, There is a regular rate and rhythm. No murmur, rub or gallop is appreciated. Respiratory: Lungs are clear to auscultation bilaterally, respirations are non-labored, breath sounds are equal. Gastrointestinal: Soft, non-distended, non-tender abdomen without masses or organomegaly noted. There is no rebound or guarding present. Bowel sounds are unremarkable. Musculoskeletal: Normal ROM, no tenderness, There is no pedal edema. There is no calf tenderness or swelling. No cords were appreciated. Neurological: CN II-XII intact, there are no obvious motor or sensory deficits. Coordination appears grossly intact. Speech is normal. Skin: Skin is warm and dry and no rashes or lesions are noted. - Labs CBC & Chem 7: 03/10/24 04:49 03/10/24 04:49 Labs: Abnormal Lab Results - Last 24 Hours (Table) 03/10/24 03/10/24 Range/Units 04:49 04:49 WBC 21.3 H (3.8-10.6) k/uL RBC 3.35 L (4.30-5.90) m/uL Hgb 10.5 L (13.0-17.5) gm/dL Hct 32.1 L (39.0-53.0) % Neutrophils # 19.4 H (1.3-7.7) k/uL Lymphocytes # 0.5 L (1.0-4.8) k/uL Monocytes # 1.1 H (0-1.0) k/uL Sodium 133 L (135-145) mmol/L Carbon Dioxide 21.3 L (21.6-31.8) mmol/L Anion Gap 14.70 H (4.00-12.00) mmol/L Glucose 133 H (70-110) mg/dL Calcium 8.5 L (8.7-10.3) mg/dL Total Bilirubin 2.1 H (0.3-1.2) mg/dL Albumin/Globulin Ratio 1.50 L (1.60-3.17) Ratio Microbiology - Last 24 Hours (Table) 03/08/24 23:55 Blood Culture - Preliminary Blood 03/08/24 23:40 Blood Culture - Preliminary Blood Assessment and Plan Plan: ight upper quadrant pain, acute cholecystitis as per general surgery, elevated T. 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 Oncology consulted Enlarged right axillary adenopathy with surrounding fat stranding, right axillary lymph node measuring 3.2 x 2.2 cm, reported per CTA 4 mm peripheral nodule in the lingula reported per CTA CAD status post recent cardiac cath. 03/06/2024,50 to 60% ostial LAD, 50 to 60% mid LAD, 80% OM1, 30% proximal RCA stenosis,PCI of the OM1 with LIZZYLaurita Barnhart initiated and continues on aspirin for dual antiplatelet therapy for 12 months. Now on hold per cardiology with heparin drip in place. Aspirin continues Hypertension Dyslipidemia Carotid atherosclerosis, mild to moderate Sick sinus syndrome Family history of coronary artery disease He remains on Unasyn for antibiotic coverage due to his borderline sepsis and leukocytosis. Most likely he will need gallbladder surgery, will continue to follow me up with you, repeat labs in a.m., will reevaluate next 24 hours
[2024-03-10 13:39] LABS: Basophils % (A) 0 %; Eosinophils # (A) 0.1 k/uL (0-0.7); Eosinophils % (A) 1 %; HGB 10.6 gm/dL (13.0-17.5); Lymphocytes # (A) 0.5 k/uL (1.0-4.8); Lymphocytes % (A) 3 %; MCH 31.6 pg (25.0-35.0); MCHC 33.2 g/dL (31.0-37.0); MCV 95.1 fL (80.0-100.0); Mean Platelet Volume 8.4; Monocytes # (A) 0.7 k/uL (0-1.0); Monocytes % (A) 4 %; Neutrophils # (A) 14.7 k/uL (1.3-7.7); Neutrophils % (A) 91 %; Platelet Count 287 k/uL (150-450); RBC 3.36 m/uL (4.30-5.90); RDW 14.7 % (11.5-15.5); WBC 16.1 k/uL (3.8-10.6)
[2024-03-10 13:47] LABS: INR 1.2 (<1.2)
[2024-03-10] MEDS: HEPARIN SOD,PORK IN 0.45% NACL 25,000 UNIT in 0.45% NACL 1 250ML.BAG IV SCH (14:10)
[2024-03-10] MEDS: HEPARIN SODIUM 1,000 UN/ML (10ML VL) IV ONE (14:11)
--- NOTE | 2024-03-10 15:03 | P.CONS ---
History of Present Illness - Reason for Consult Consult date: 03/10/24 newly dx T cell lymphoma Requesting physician: Vale De Los Santos - Chief Complaint abd pain - History of Present Illness Patient is a 83-year-old male with a significant history recently diagnosed T cell Lymphoma and recent cardiac catheterization with stenting on 03/06/2024, on dual antiplatelet therapy with Brilinta and aspirin. Patient had noted a right neck mass and followed up with PCP who ordered additional wokrup. He underwent right neck mass core biopsy on 02/18/2024, which was positive for atypical lymphoid infiltrate, favoring angioimmunoblastic T-cell lymphoma. The pathology was sent to [facility] for further evaluation, and they were agreeable with diagnosis of T cell lymphoma. He was then referred to Dr. Jackson, and has his consultation appt on 03/14/24. Patient presented to the emergency room with complaints of right upper quadrant pain with associated nausea vomiting. On admission CTA chest was negative for acute PE. Mild to moderate atelectatic change in the lung bases. With no suspicious focal consolidation. Abnormal right axillary adenopathy measuring 3.[address] abdomen pelvis with contrast showed possible acute cholecystitis. Gallbladder ultrasound was subsequently obtained which reports a suboptimal study, with no internal gallstones or ultrasound evidence for acute cholecystitis. Labs reviewed, CBC showing leukocytosis with WBC 21.3, hemoglobin 10.5, platelets 251,000. Creatinine 1.1, GFR 67. Bilirubin elevated at 2.1. LFTs WNL. Patient is afebrile. General surgery following. Plan for conservative management at this time with IV antibiotics due to recent cardiac stent placement on 03/06 and dual antiplatelet therapy. Cardiology consulted Review of Systems 10 point ROS is negative except as stated in the HPI Past Medical History Past Medical History: Hyperlipidemia, Hypertension Additional Past Medical History / Comment(s): Sees pulmomologist for "plugged up lungs" History of Any Multi-Drug Resistant Organisms: MRSA Year Discovered:: 2014 MDRO Source:: left axilla Past Surgical History: Orthopedic Surgery Additional Past Surgical History / Comment(s): Cataracts, heart cath w/ stent p lacement Past Anesthesia/Blood Transfusion Reactions: No Reported Reaction Past Psychological History: No Psychological Hx Reported Smoking Status: Former smoker Past Alcohol Use History: Occasional Past Drug Use History: None Reported - Past Family History Brother(s) Family Medical History: Myocardial Infarction (NM) Father History Unknown: Yes Family Medical History: No Reported History Additional Family Medical History / Comment(s): of old age Mother Family Medical History: No Reported History Medications and Allergies Home Medications Medication Instructions Recorded Confirmed Type Aspirin EC [Ecotrin Low Dose] 81 mg PO DAILY 11/25/16 03/09/24 History Atorvastatin [Lipitor] 20 mg PO HS 12/24/23 03/09/24 History Triamcinolone 0.025% Cream 1 applic TOPICAL DAILY 12/24/23 03/09/24 History [Kenalog 0.025% Cream] amLODIPine [Norvasc] 5 mg PO HS 12/24/23 03/09/24 History hydroCHLOROthiazide [Hydrodiuril] 25 mg PO DAILY 12/24/23 03/09/24 History Vit C/E/Zn/Coppr/Lutein/Zeaxan 2 cap PO DAILY 03/05/24 03/09/24 History [Preservision Areds 2 Softgel] methocarbamoL [Robaxin] 500 mg PO DAILY 03/05/24 03/09/24 History Metoprolol Succinate (ER) [Toprol 12.5 mg PO DAILY #45 tab 03/07/24 03/09/24 Rx XL] Nitroglycerin Sl Tabs [Nitrostat] 0.4 mg SUBLINGUAL Q5M PRN #25 tab 03/07/24 03/09/24 Rx Ticagrelor [Brilinta] 90 mg PO BID #180 tab 03/07/24 03/09/24 Rx Allergies Allergy/AdvReac Type Severity Reaction Status Date / Time No Known Allergies Allergy Verified 03/09/24 07:17 Physical Exam Vitals: Vital Signs Temp Pulse Pulse Resp BP BP BP 03/10/24 14:12 98.2 F 77 18 119/61 03/10/24 08:00 84 03/10/24 07:00 98.9 F 84 18 136/65 03/10/24 02:00 99.5 F 77 18 134/63 03/10/24 00:08 98.4 F 73 145/62 03/09/24 22:32 98.8 F 71 18 119/71 03/09/24 22:01 68 18 118/68 03/09/24 21:13 71 16 120/64 03/09/24 18:35 98.3 F 70 14 102/59 03/09/24 17:30 74 16 111/69 Pulse Ox 03/10/24 14:12 94 L 03/10/24 08:00 03/10/24 07:00 96 03/10/24 02:00 95 03/10/24 00:08 95 03/09/24 22:32 95 03/09/24 22:01 93 L 03/09/24 21:13 97 03/09/24 18:35 94 L 03/09/24 17:30 98 Intake and Output 03/09/24 03/10/24 03/10/24 22:59 06:59 14:59 Intake Total 120 236 Output Total 550 Balance -430 236 Intake: Oral 120 236 Output: Urine 550 Other: Voiding Method Toilet # Voids 3 Weight 95.254 kg - Constitutional General appearance: average body habitus, no acute distress - EENT Eyes: anicteric sclerae, EOMI ENT: hearing grossly normal - Neck approx [address], and 2-3 small palpable right axillary LNs Neck: lymphadenopathy - Respiratory Respiratory: bilateral: CTA - Cardiovascular Rhythm: regular - Gastrointestinal General gastrointestinal: distended, tenderness Localized gastrointestinal: tender: RUQ - Integumentary Integumentary: no cyanotic, no jaundiced - Neurologic Neurologic: CNII-XII intact - Musculoskeletal Musculoskeletal: strength equal bilaterally - Psychiatric Psychiatric: A&O x's 3 Results CBC & Chem 7: 03/10/24 13:17 03/10/24 04:49 Labs: Abnormal Lab Results - Last 24 Hours (Table) 03/10/24 03/10/24 03/10/24 Range/Units 04:49 04:49 13:17 WBC 21.3 H 16.1 H (3.8-10.6) k/uL RBC 3.35 L 3.36 L (4.30-5.90) m/uL Hgb 10.5 L 10.6 L (13.0-17.5) gm/dL Hct 32.1 L 32.0 L (39.0-53.0) % Neutrophils # 19.4 H 14.7 H (1.3-7.7) k/uL Lymphocytes # 0.5 L 0.5 L (1.0-4.8) k/uL Monocytes # 1.1 H (0-1.0) k/uL PT (10.0-12.5) sec INR (<1.2) Sodium 133 L (135-145) mmol/L Carbon Dioxide 21.3 L (21.6-31.8) mmol/L Anion Gap 14.70 H (4.00-12.00) mmol/L Glucose 133 H (70-110) mg/dL Calcium 8.5 L (8.7-10.3) mg/dL Total Bilirubin 2.1 H (0.3-1.2) mg/dL Albumin/Globulin Ratio 1.50 L (1.60-3.17) Ratio 03/10/24 Range/Units 13:17 WBC (3.8-10.6) k/uL RBC (4.30-5.90) m/uL Hgb (13.0-17.5) gm/dL Hct (39.0-53.0) % Neutrophils # (1.3-7.7) k/uL Lymphocytes # (1.0-4.8) k/uL Monocytes # (0-1.0) k/uL PT 13.0 H (10.0-12.5) sec INR 1.2 H (<1.2) Sodium (135-145) mmol/L Carbon Dioxide (21.6-31.8) mmol/L Anion Gap (4.00-12.00) mmol/L Glucose (70-110) mg/dL Calcium (8.7-10.3) mg/dL Total Bilirubin (0.3-1.2) mg/dL Albumin/Globulin Ratio (1.60-3.17) Ratio Microbiology - Last 24 Hours (Table) 03/08/24 23:55 Blood Culture - Preliminary Blood 03/08/24 23:40 Blood Culture - Preliminary Blood CT scan - abdomen: report reviewed CT scan - chest: report reviewed CT scan - pelvis: report reviewed US - abdomen: report reviewed Assessment and Plan (1) T-cell lymphoma Current Visit: No Status: Acute Priority: High Code(s): C85.90 - NON- HODGKIN LYMPHOMA, UNSPECIFIED, UNSPECIFIED SITE SNOMED Code(s): 315947336 (2) Cholecystitis Current Visit: Yes Status: Acute Priority: High Code(s): K81.9 - CHOLECYSTITIS, UNSPECIFIED SNOMED Code(s): 81871534 Plan: Abd pain, cholecystitis: Presented with complaints of right upper quadrant pain with associated nausea vomiting. -On admission CTA chest was negative for acute PE. Mild to moderate atelectatic change in the lung bases. With no suspicious focal consolidation. Abnormal right axillary adenopathy measuring 3.[address] abdomen pelvis with cont rast showed possible acute cholecystitis. Gallbladder ultrasound was subsequently obtained which reports a suboptimal study, with no internal gallstones or ultrasound evidence for acute cholecystitis. -CBC today showing leukocytosis with WBC 21.3, hemoglobin 10.5, platelets 251,000. Bilirubin elevated at 2.1. LFTs WNL. -General surgery following. Plan for conservative management at this time with IV antibiotics due to recent cardiac stent placement on 03/06 and dual antiplatelet therapy. Cardiology consulted T cell Lymphoma: -Newly diagnosed T cell Lymphoma. Patient had noted a right neck mass and followed up with PCP who ordered additional workup. -Underwent right neck mass core biopsy on 02/18/2024, which was positive for atypical lymphoid infiltrate, favoring angioimmunoblastic T-cell lymphoma. Pathology was sent to [facility] for further review, and they were agreeable with diagnosis of T cell lymphoma. -He has been referred to Dr. Jackson, and has first appt is scheduled on 03/14/24 -Discussed with patient that his treatment regimen would consist of chemo, and that if he undergoes surgery, treatment would have to be held until adequately recovered from procedure. At this time, no surgery is planned, treating with conservative management. Will f/u on surgical recommendations prior to initiating treatment -Outpt PET CT will be obtained for staging attests:I have seen and examined pt, performed H&P, developed impression and plan of care. Discussed with dictator. Agree with documentation, dictated as a scribe.
--- NOTE | 2024-03-10 16:11 | P.PN ---
Subjective Progress Note Date: 03/10/24 CHIEF COMPLAINT: Acute cholecystitis HISTORY OF PRESENT ILLNESS: Patient continues to complain of right upper quadrant abdominal pain. He also reported chest pain last night. He is followed by cardiology service. Case was discussed with cardiology. At this time Brilinta is being placed on hold and patient being anticoagulated with IV heparin in preparation for possible surgical intervention on the gallbladder. Afebrile. WBC did go up from 11.4-20 1 repeat is 16 hemoglobin 10.6. INR 1.2 Patient seen and examined with Dr. Castillo PHYSICAL EXAM: VITAL SIGNS: Reviewed. GENERAL: no acute distress. HEENT: No sclera icterus. Extraocular movements grossly intact. Moist buccal mucosa. Head is atraumatic, normocephalic. ABDOMEN: Soft. Nondistended. Right upper quadrant tenderness NEUROLOGIC: Alert and oriented. Cranial nerves II through XII grossly intact. ASSESSMENT: 1. Acute cholecystitis 2. Hydropic gallbladder reported on ultrasound 3. Coronary artery disease with recent heart catheterization and stent placement on March 06, 2024. Patient has been on Brilinta 4. New diagnosis of lymphoma. Patient seen by oncology service PLAN: -Continue antibiotics and conservative management. Patient may require cholecystectomy. -Continue to monitor -Case discussed with cardiology service. At this time Brilinta has been discontinued and they are placing patient on IV heparin -Continue low-fat diet Physician Customer Field Representative note has been reviewed by physician. Signing provider agrees with the documented findings, assessment, and plan of care. Objective - Vital Signs Vital signs: Vital Signs Temp 98.9 F 03/10/24 07:00 Pulse 84 03/10/24 08:00 Resp 18 03/10/24 07:00 BP 136/65 03/10/24 07:00 Pulse Ox 96 03/10/24 07:00 FiO2 Intake & Output 03/09/24 03/10/24 03/10/24 18:59 06:59 18:59 Intake Total 120 Output Total 550 Balance -430 Weight 95.254 kg Intake: Oral 120 Output: Urine 550 Other: Voiding Method Toilet - Labs CBC & Chem 7: 03/10/24 13:17 03/10/24 04:49 Labs: Abnormal Lab Results - Last 24 Hours (Table) 03/10/24 03/10/24 Range/Units 04:49 04:49 WBC 21.3 H (3.8-10.6) k/uL RBC 3.35 L (4.30-5.90) m/uL Hgb 10.5 L (13.0-17.5) gm/dL Hct 32.1 L (39.0-53.0) % Neutrophils # 19.4 H (1.3-7.7) k/uL Lymphocytes # 0.5 L (1.0-4.8) k/uL Monocytes # 1.1 H (0-1.0) k/uL Sodium 133 L (135-145) mmol/L Carbon Dioxide 21.3 L (21.6-31.8) mmol/L Anion Gap 14.70 H (4.00-12.00) mmol/L Glucose 133 H (70-110) mg/dL Calcium 8.5 L (8.7-10.3) mg/dL Total Bilirubin 2.1 H (0.3-1.2) mg/dL Albumin/Globulin Ratio 1.50 L (1.60-3.17) Ratio
[2024-03-10] MEDS: ONDANSETRON 4 MG/2 ML VIAL IVP PRN (19:05)
[2024-03-10] MEDS ORDERED: SIMETHICONE 40 MG/0.6 ML DROPS 2,000 MG/30 ML BOTTLE PO PRN (21:19)
[2024-03-10] MEDS: PANTOPRAZOLE 40 MG/10 ML VIAL IVP SCH (22:20)
[2024-03-11 08:39] LABS: Basophils # (A) 0.02 X 10*3/uL (0.00-0.10); Basophils % (A) 0.1 %; Eosinophils # (A) 0 X 10*3/uL (0.04-0.35); Eosinophils % (A) 0 %; HCT 29.9 % (39.6-50.0); HGB 9.8 g/dL (13.0-17.0); Lymphocytes # (A) 0.21 X 10*3/uL (0.90-5.00); Lymphocytes % (A) 1.5 %; MCH 30.9 pg (27.0-32.0); MCHC 32.8 g/dL (32.0-37.0); MCV 94.3 FL (80.0-97.0); Mean Platelet Volume 11.2 FL (9.5-12.2); Monocytes # (A) 0.42 X 10*3/uL (0.20-1.00); NRBC Per 100 WBC 0 X 10*3/uL (0.00-0.01); Neutrophils % (A) 94.7 %; Platelet Count 246 X 10*3/uL (140-440); RBC 3.17 X 10*6/uL (4.40-5.60); WBC 13.95 X 10*3/uL (4.50-10.00)
[2024-03-11 08:57] LABS: ALT 310 U/L (10-49); AST 328 U/L (14-35); Albumin 3.7 g/dL (3.8-4.9); Albumin/Globulin Ratio 1.48 Ratio (1.60-3.17); Alkaline Phosphatase 347 U/L (41-126); Blood Urea Nitrogen 15.3 mg/dL (9.0-27.0); Calcium 8.2 mg/dL (8.7-10.3); Carbon Dioxide 20.8 mmol/L (21.6-31.8); Chloride 99 mmol/L (96-109); Globulin 2.5 g/dL (1.6-3.3); Glucose 139 mg/dL (70-110); Potassium 3.3 mmol/L (3.5-5.5); Sodium 134 mmol/L (135-145); Total Bilirubin 5.9 mg/dL (0.3-1.2); Total Protein 6.2 g/dL (6.2-8.2)
[2024-03-11] MEDS: POTASSIUM CHLORIDE ER 20 MEQ TAB.ER PO STA (10:59)
--- NOTE | 2024-03-11 11:53 | P.PN ---
Subjective HISTORY OF PRESENT ILLNESS: This is an 83-year-old male patient of Dr. Ayala with past medical history of angina with chest tightness with exertion, hypertension, dyslipidemia, mild to moderate carotid atherosclerosis, and SVT2 brief runs, sick sinus syndrome, CAD s/p PCI OM1, macular degeneration, family history of coronary artery disease. We have been asked to evaluate the patient for chest pain. Patient was last s een in the office on September 03, 2023, at that time losartan was increased, advised weight loss and Holter monitor was ordered which has not been completed. patient had been seen 5 days ago for episodes of chest pain some of which were resolved with nitro. Therefore heart catheterization was performed which showed CAD involving the OM1 branch as well as mid LAD. Mid LAD appeared more moderate and therefore treated medically however iFR of OM1 was grossly abnormal and therefore a stent was placed. Patient unfortunately has been having more episodes of abdominal pain which she states is in fact similar to what he was having before. He is having more nausea and upset stomach. Therefore blood work performed which shows show elevated bilirubin and CT concerning for cholecystitis. Abdominal ultrasound does not show any significant gallstones. White blood cell increase that to 21 and currently concern of sepsis. 03/11/2024 Patient examined this morning at the bedside. Patient currently denies chest pain or pressure. He denies shortness of breath. He continues to report abdominal pain. He is receiving IV antibiotics. General surgery is following. WBC 13.95. patient with transaminitis this morning. AST 328. ALT 310. Total bilirubin 5.9. PHYSICAL EXAM: VITAL SIGNS: Reviewed. GENERAL: Well-developed in no acute distress. NECK: Supple. No JVD or thyromegaly LUNGS: Respirations even and unlabored. Lungs essentially clear to auscultation bilaterally. HEART: Regular rate and rhythm. S1 and S2 heard. EXTREMITIES: Normal range of motion. No clubbing or cyanosis. Peripheral pulses intact. No lower extremity edema ASSESSMENT: CAD status post PCI of OM1 acute cholecystitis Hypertension Dyslipidemia Carotid atherosclerosis, mild to moderate SVT2 brief runs Sick sinus syndrome Family history of coronary artery disease hyperbilirubinemia Transaminitis PLAN: Patients Brilinta has been placed on hold. He remains on aspirin 81 mg daily. Continue IV heparin in the interim. General surgery following for possible cholecystectomy. There are no absolute contraindications for patient to proceed from a cardiac standpoint with surgery if needed Further recommendations pending patient's course Nurse practitioner note has been reviewed by physician. Signing provider agrees with the documented findings, assessment, and plan of care. Objective - Vital Signs Vital signs: Vital Signs Temp 97.4 F L 03/11/24 07:30 Pulse 86 03/11/24 07:30 Resp 16 03/11/24 08:00 BP 110/67 03/11/24 07:30 Pulse Ox 97 03/11/24 07:30 FiO2 Intake & Output 03/10/24 03/11/24 03/11/24 18:59 06:59 18:59 Intake Total 472 268.861 Output Total 800 Balance 472 -531.139 Intake: Intake, IV Titration 268.861 Amount Heparin Sod,Pork in 0.45% 268.861 NaCl 25,000 unit In 0.45 % NaCl 1 250ml.bag @ 18 UNITS/KG/HR 17.146 mls/hr IV .[id number] [facility] Rx#: [id number] Oral 472 Output: Urine 800 Other: Voiding Method Toilet Toilet # Voids 3 - Labs CBC & Chem 7: 03/11/24 04:44 03/11/24 04:44 Labs: Abnormal Lab Results - Last 24 Hours (Table) 03/10/24 03/10/24 03/10/24 Range/Units 13:17 13:17 19:40 WBC 16.1 H (3.8-10.6) k/uL RBC 3.36 L (4.30-5.90) m/uL Hgb 10.6 L (13.0-17.5) gm/dL Hct 32.0 L (39.0-53.0) % Immature Gran # (0.00-0.04) X 10*3/uL Neutrophils # 14.7 H (1.3-7.7) k/uL Lymphocytes # 0.5 L (1.0-4.8) k/uL Eosinophils # (0.04-0.35) X 10*3/uL PT 13.0 H (10.0-12.5) sec INR 1.2 H (<1.2) APTT 59.0 H (22.0-30.0) sec Sodium (135-145) mmol/L Potassium (3.5-5.5) mmol/L Carbon Dioxide (21.6-31.8) mmol/L Anion Gap (4.00-12.00) mmol/L Glucose (70-110) mg/dL Calcium (8.7-10.3) mg/dL Total Bilirubin (0.3-1.2) mg/dL AST (14-35) U/L ALT (10-49) U/L Alkaline Phosphatase (41-126) U/L Albumin (3.8-4.9) g/dL Albumin/Globulin Ratio (1.60-3.17) Ratio 03/11/24 03/11/24 03/11/24 Range/Units 04:44 04:44 04:44 WBC 13.95 H (3.8-10.6) k/uL RBC 3.17 L (4.30-5.90) m/uL Hgb 9.8 L (13.0-17.5) gm/dL Hct 29.9 L (39.0-53.0) % Immature Gran # 0.10 H (0.00-0.04) X 10*3/uL Neutrophils # 13.20 H (1.3-7.7) k/uL Lymphocytes # 0.21 L (1.0-4.8) k/uL Eosinophils # 0 L (0.04-0.35) X 10*3/uL PT (10.0-12.5) sec INR (<1.2) APTT 53.6 H (22.0-30.0) sec Sodium 134 L (135-145) mmol/L Potassium 3.3 L (3.5-5.5) mmol/L Carbon Dioxide 20.8 L (21.6-31.8) mmol/L Anion Gap 14.20 H (4.00-12.00) mmol/L Glucose 139 H (70-110) mg/dL Calcium 8.2 L (8.7-10.3) mg/dL Total Bilirubin 5.9 H (0.3-1.2) mg/dL AST 328 H (14-35) U/L ALT 310 H (10-49) U/L Alkaline Phosphatase 347 H (41-126) U/L Albumin 3.7 L (3.8-4.9) g/dL Albumin/Globulin Ratio 1.48 L (1.60-3.17) Ratio Microbiology - Last 24 Hours (Table) 03/08/24 23:55 Blood Culture - Preliminary Blood 03/08/24 23:40 Blood Culture - Preliminary Blood
--- NOTE | 2024-03-11 12:02 | P.PN ---
Subjective 03/09:This is a 83-year-old gentleman with past medical history significant for recent cardiac catheterization with stenting on 03/06/2024;50 to 60% ostial LAD, 50 to 60% mid LAD, 80% OM1, 30% proximal RCA stenosis,PCI of the OM1 with LIZZY. 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 Attempted two sublingual nitroglycerin without relief. Nausea and vomiting subsided. Denies lightheadedness dizziness or focal deficits.Chest x-ray reported no acute cardiopulmonary disease process, COPD changes. Chest CTA reported no evidence for PE, mild to moderate atelectatic change in the lung bases, no suspicious focal consolidation, abnormal right axillary adenopathy with surrounding fat stranding. Blood cultures obtained ,Unasyn initiated in the ER.Follow-up MRI abdomen and pelvis CT reported possible acute cholecystitis.Gallbladder ultrasound reported suboptimal study due to overlying bowel gas and patient's body habitus, no and terminal gallstones or ultrasound evidence for acute cholecystitis. Afebrile, WBC 11 point 0.4 decreased from 15.1 on admission, hemoglobin 11.5, MCV 95.8, platelets 258, INR 1, electrolytes, renal function stable. T. bili 1.8, 2.2. Denies chest pain, palpitations or shortness of breath. Troponin negative x 2. Maintaining O2 sats in the mid 90s on room air. March 10, 2024: Patient seen and evaluated today. He continues to have right upper quadrant pain. Continues show she signs of acute cholecystitis. Cardiology is seeing him and discontinue his Brilinta and believe that if medical management fails he can undergo surgery but that there is a risk of clotting of his small obtuse marginal stent he had placed 5 days ago. Currently his vital signs show he is afebrile heart rate respiratory rate normal blood pressure is controlled. Laboratory studies show increasing white count now at 21.3 hemoglobin 10.5 there is a left shift with a 19.4 absolute neutrophils, chemistries show a slight hyponatremia at 133. BUN and creatinine essentially normal his bilirubin is elevated at 2.2 Regarding his T-cell lymphoma biopsy at the right neck mass, oncology has seen him their note is pending. Zach is complains of some right upper quadrant pain. He has been n.p.o. since 9 PM last night. He does want to eat a little something 03/11/2024: Pt continue to have significant abdominal pain in the RUQ, LFTs now more elevated and GI is not avavaible. Surgery planning on transfer. ONC has seen nd will plan outpt T cell lymphoma staging. pt otherwise mildly hypokalemic. No chest pain or sob. Objective - Vital Signs Vital signs: Vital Signs Temp 97.4 F L 03/11/24 07:30 Pulse 86 03/11/24 07:30 Resp 16 03/11/24 08:00 BP 110/67 03/11/24 07:30 Pulse Ox 97 03/11/24 07:30 FiO2 Intake & Output 03/10/24 03/11/24 03/11/24 18:59 06:59 18:59 Intake Total 472 268.861 Output Total 800 Balance 472 -531.139 Intake: Intake, IV Titration 268.861 Amount Heparin Sod,Pork in 0.45% 268.861 NaCl 25,000 unit In 0.45 % NaCl 1 250ml.bag @ 18 UNITS/KG/HR 17.146 mls/hr IV .[id number] [facility] Rx#: [id number] Oral 472 Output: Urine 800 Other: Voiding Method Toilet Toilet # Voids 3 - Exam General: The patient is awake and alert, in mild distress due to right upper quadrant pain Neck: The neck is supple, there is no thyromegaly, lymphadenopathy, tenderness or JVD. Cardiovascular: S1S2 is normal, There is a regular rate and rhythm. No murmur, rub or gallop is appreciated. Respiratory: Lungs are clear to auscultation bilaterally, respirations are non-labored, breath sounds are equal. Gastrointestinal: Soft, non-distended, non-tender abdomen without masses or organomegaly noted. There is no rebound or guarding present. Bowel sounds are unremarkable. Musculoskeletal: Normal ROM, no tenderness, There is no pedal edema. There is no calf tenderness or swelling. No cords were appreciated. Neurological: CN II-XII intact, there are no obvious motor or sensory deficits. Coordination appears grossly intact. Speech is normal. Skin: Skin is warm and dry and no rashes or lesions are noted. - Labs CBC & Chem 7: 03/11/24 04:44 03/11/24 04:44 Labs: Abnormal Lab Results - Last 24 Hours (Table) 03/10/24 03/10/24 03/10/24 Range/Units 13:17 13:17 19:40 WBC 16.1 H (3.8-10.6) k/uL RBC 3.36 L (4.30-5.90) m/uL Hgb 10.6 L (13.0-17.5) gm/dL Hct 32.0 L (39.0-53.0) % Immature Gran # (0.00-0.04) X 10*3/uL Neutrophils # 14.7 H (1.3-7.7) k/uL Lymphocytes # 0.5 L (1.0-4.8) k/uL Eosinophils # (0.04-0.35) X 10*3/uL PT 13.0 H (10.0-12.5) sec INR 1.2 H (<1.2) APTT 59.0 H (22.0-30.0) sec Sodium (135-145) mmol/L Potassium (3.5-5.5) mmol/L Carbon Dioxide (21.6-31.8) mmol/L Anion Gap (4.00-12.00) mmol/L Glucose (70-110) mg/dL Calcium (8.7-10.3) mg/dL Total Bilirubin (0.3-1.2) mg/dL AST (14-35) U/L ALT (10-49) U/L Alkaline Phosphatase (41-126) U/L Albumin (3.8-4.9) g/dL Albumin/Globulin Ratio (1.60-3.17) Ratio 03/11/24 03/11/24 03/11/24 Range/Units 04:44 04:44 04:44 WBC 13.95 H (3.8-10.6) k/uL RBC 3.17 L (4.30-5.90) m/uL Hgb 9.8 L (13.0-17.5) gm/dL Hct 29.9 L (39.0-53.0) % Immature Gran # 0.10 H (0.00-0.04) X 10*3/uL Neutrophils # 13.20 H (1.3-7.7) k/uL Lymphocytes # 0.21 L (1.0-4.8) k/uL Eosinophils # 0 L (0.04-0.35) X 10*3/uL PT (10.0-12.5) sec INR (<1.2) APTT 53.6 H (22.0-30.0) sec Sodium 134 L (135-145) mmol/L Potassium 3.3 L (3.5-5.5) mmol/L Carbon Dioxide 20.8 L (21.6-31.8) mmol/L Anion Gap 14.20 H (4.00-12.00) mmol/L Glucose 139 H (70-110) mg/dL Calcium 8.2 L (8.7-10.3) mg/dL Total Bilirubin 5.9 H (0.3-1.2) mg/dL AST 328 H (14-35) U/L ALT 310 H (10-49) U/L Alkaline Phosphatase 347 H (41-126) U/L Albumin 3.7 L (3.8-4.9) g/dL Albumin/Globulin Ratio 1.48 L (1.60-3.17) Ratio Microbiology - Last 24 Hours (Table) 03/08/24 23:55 Blood Culture - Preliminary Blood 03/08/24 23:40 Blood Culture - Preliminary Blood Assessment and Plan Plan: ight upper quadrant pain, acute cholecystitis as per general surgery, elevated T. 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 Oncology consulted Enlarged right axillary adenopathy with surrounding fat stranding, right axillary lymph node measuring 3.2 x 2.2 cm, reported per CTA 4 mm peripheral nodule in the lingula reported per CTA CAD status post recent cardiac cath. 03/06/2024,50 to 60% ostial LAD, 50 to 60% mid LAD, 80% OM1, 30% proximal RCA stenosis,PCI of the OM1 with LIZZY. Brilinta initiated and continues on aspirin for dual antiplatelet therapy for 12 months. Now on hold per cardiology with heparin drip in place. Aspirin continues Hypertension Dyslipidemia Carotid atherosclerosis, mild to moderate Sick sinus syndrome Family history of coronary artery disease He remains on Unasyn for antibiotic coverage heparin for his recent stent placemnt, Surgery to transfer due to the need for ERCP.
--- NOTE | 2024-03-11 13:59 | P.PN ---
Subjective Progress Note Date: 03/11/24 Patient reporting increased RUQ pain today with nausea. Denies vomiting. WBC improved today at 13.95. Bilirubin worsening, 5.9 from 2.1. Transaminitis noted. Plan to transfer pt to tertiary center Objective - Vital Signs Vital signs: Vital Signs Temp 97.4 F L 03/11/24 07:30 Pulse 86 03/11/24 07:30 Resp 16 03/11/24 08:00 BP 110/67 03/11/24 07:30 Pulse Ox 97 03/11/24 07:30 FiO2 Intake & Output 03/10/24 03/11/24 03/11/24 18:59 06:59 18:59 Intake Total 472 268.861 Output Total 800 Balance 472 -531.139 Intake: Intake, IV Titration 268.861 Amount Heparin Sod,Pork in 0.45% 268.861 NaCl 25,000 unit In 0.45 % NaCl 1 250ml.bag @ 18 UNITS/KG/HR 17.146 mls/hr IV .[id number] [facility] Rx#: [id number] Oral 472 Output: Urine 800 Other: Voiding Method Toilet Toilet # Voids 3 - Constitutional General appearance: Present: no acute distress - EENT ENT: Present: hearing grossly normal - Respiratory Details: breathing is even and unlabored - Cardiovascular Details: skin warm and dry - Gastrointestinal General gastrointestinal: Present: distended, tenderness Localized gastrointestinal: tender: RUQ - Integumentary Integumentary: Present: jaundiced - Neurologic Neurologic: Present: CNII-XII intact - Musculoskeletal Musculoskeletal: Present: strength equal bilaterally - Psychiatric Psychiatric: Present: A&O x's 3 - Labs CBC & Chem 7: 03/11/24 04:44 03/11/24 04:44 Labs: Abnormal Lab Results - Last 24 Hours (Table) 03/10/24 03/10/24 03/10/24 Range/Units 13:17 13:17 19:40 WBC 16.1 H (3.8-10.6) k/uL RBC 3.36 L (4.30-5.90) m/uL Hgb 10.6 L (13.0-17.5) gm/dL Hct 32.0 L (39.0-53.0) % Immature Gran # (0.00-0.04) X 10*3/uL Neutrophils # 14.7 H (1.3-7.7) k/uL Lymphocytes # 0.5 L (1.0-4.8) k/uL Eosinophils # (0.04-0.35) X 10*3/uL PT 13.0 H (10.0-12.5) sec INR 1.2 H (<1.2) APTT 59.0 H (22.0-30.0) sec Sodium (135-145) mmol/L Potassium (3.5-5.5) mmol/L Carbon Dioxide (21.6-31.8) mmol/L Anion Gap (4.00-12.00) mmol/L Glucose (70-110) mg/dL Calcium (8.7-10.3) mg/dL Total Bilirubin (0.3-1.2) mg/dL AST (14-35) U/L ALT (10-49) U/L Alkaline Phosphatase (41-126) U/L Albumin (3.8-4.9) g/dL Albumin/Globulin Ratio (1.60-3.17) Ratio 03/11/24 03/11/24 03/11/24 Range/Units 04:44 04:44 04:44 WBC 13.95 H (3.8-10.6) k/uL RBC 3.17 L (4.30-5.90) m/uL Hgb 9.8 L (13.0-17.5) gm/dL Hct 29.9 L (39.0-53.0) % Immature Gran # 0.10 H (0.00-0.04) X 10*3/uL Neutrophils # 13.20 H (1.3-7.7) k/uL Lymphocytes # 0.21 L (1.0-4.8) k/uL Eosinophils # 0 L (0.04-0.35) X 10*3/uL PT (10.0-12.5) sec INR (<1.2) APTT 53.6 H (22.0-30.0) sec Sodium 134 L (135-145) mmol/L Potassium 3.3 L (3.5-5.5) mmol/L Carbon Dioxide 20.8 L (21.6-31.8) mmol/L Anion Gap 14.20 H (4.00-12.00) mmol/L Glucose 139 H (70-110) mg/dL Calcium 8.2 L (8.7-10.3) mg/dL Total Bilirubin 5.9 H (0.3-1.2) mg/dL AST 328 H (14-35) U/L ALT 310 H (10-49) U/L Alkaline Phosphatase 347 H (41-126) U/L Albumin 3.7 L (3.8-4.9) g/dL Albumin/Globulin Ratio 1.48 L (1.60-3.17) Ratio Microbiology - Last 24 Hours (Table) 03/08/24 23:55 Blood Culture - Preliminary Blood 03/08/24 23:40 Blood Culture - Preliminary Blood Assessment and Plan (1) T-cell lymphoma Current Visit: No Status: Acute Priority: High Code(s): C85.90 - NON- HODGKIN LYMPHOMA, UNSPECIFIED, UNSPECIFIED SITE SNOMED Code(s): 360793317 (2) Cholecystitis Current Visit: Yes Status: Acute Priority: High Code(s): K81.9 - CHOLECYSTITIS, UNSPECIFIED SNOMED Code(s): 69508626 Plan: Abd pain, cholecystitis: Presented with complaints of right upper quadrant pain with associated nausea vomiting. -On admission CTA chest was negative for acute PE. Mild to moderate atelectatic change in the lung bases. With no suspicious focal consolidation. Abnormal right axillary adenopathy measuring 3.[address] abdomen pelvis with co ntrast showed possible acute cholecystitis. Gallbladder ultrasound was subsequently obtained which reports a suboptimal study, with no internal gallstones or ultrasound evidence for acute cholecystitis. -CBC today showing leukocytosis with WBC 21.3, hemoglobin 10.5, platelets 251,000. Bilirubin elevated at 2.1. LFTs WNL. -General surgery following. Plan for conservative management with IV antibiotics due to recent cardiac stent placement on 03/06 and dual antiplatelet therapy. However, due to progressing sx and increasing bilirubin and LFTS, plan is to transfer to tertiary center for further management T cell Lymphoma: -Newly diagnosed T cell Lymphoma. Patient had noted a right neck mass and followed up with PCP who ordered additional workup. -Underwent right neck mass core biopsy on 02/18/2024, which was positive for atypical lymphoid infiltrate, favoring angioimmunoblastic T-cell lymphoma. Pathology was sent to [facility] for further review, and they were agreeable with diagnosis of T cell lymphoma. -He has been referred to Dr. Jackson, and has first appt is scheduled on 03/14/24 -Discussed with patient that his treatment regimen would consist of chemo, and that if he undergoes surgery, treatment would have to be held until adequately recovered from procedure. Will f/u on surgical recommendations prior to initiating treatment -Outpt PET CT will be obtained for staging
--- NOTE | 2024-03-11 14:56 | P.PN ---
Subjective Progress Note Date: 03/11/24 CHIEF COMPLAINT: Acute cholecystitis HISTORY OF PRESENT ILLNESS: Patient continues to complain of right upper quadrant abdominal pain. patient denies any nausea or vomitingpatient is now jaundiced. His urine is dark.patient had increase in total bilirubin from 2.1- 5.9 LFTs were normal yesterday and now elevated. AST 328 ALT 310 and alk phos 347 PHYSICAL EXAM: VITAL SIGNS: Reviewed. GENERAL: no acute distress. HEENT: scleral icterus present ABDOMEN: Soft. Nondistended. Right upper quadrant tenderness NEUROLOGIC: Alert and oriented. Cranial nerves II through XII grossly intact. skin jaundice ASSESSMENT: 1. Acute cholecystitis 2. Elevated total bilirubin and LFTs likely due to choledocholithiasis 3. Hydropic gallbladder reported on ultrasound 4. Coronary artery disease with recent heart catheterization and stent placement on March 06, 2024. Patient has been on Brilinta 5. New diagnosis of lymphoma. Patient seen by oncology service PLAN: -working on transferring patient to [facility] to be evaluated by GI service and possible ERCP. There is no GI service available today or next week. Awaiting to see if [facility] will accept the patient. -Continue antibiotics -Resume low-fat diet -Continue to hold Brilenta. Currently on IV heparin drip due to recent cardiac stents. Followed by cardiology service. Physician Pond Supervisor note has been reviewed by physician. Signing provider agrees with the documented findings, assessment, and plan of care. Objective - Vital Signs Vital signs: Vital Signs Temp 97.4 F L 03/11/24 13:55 Pulse 84 03/11/24 13:55 Resp 17 03/11/24 13:55 BP 128/74 03/11/24 13:55 Pulse Ox 94 L 03/11/24 13:55 FiO2 Intake & Output 03/10/24 03/11/24 03/11/24 18:59 06:59 18:59 Intake Total 472 268.861 0 Output Total 800 Balance 472 -531.139 0 Intake: Intake, IV Titration 268.861 Amount Heparin Sod,Pork in 0.45% 268.861 NaCl 25,000 unit In 0.45 % NaCl 1 250ml.bag @ 18 UNITS/KG/HR 17.146 mls/hr IV .[id number] [facility] Rx#: [id number] Oral 472 0 Output: Urine 800 Other: Voiding Method Toilet Toilet # Voids 3 - Labs CBC & Chem 7: 03/11/24 04:44 03/11/24 04:44 Labs: Abnormal Lab Results - Last 24 Hours (Table) 03/10/24 03/11/24 03/11/24 Range/Units 19:40 04:44 04:44 WBC 13.95 H (4.50-10.00) X 10*3/uL RBC 3.17 L (4.40-5.60) X 10*6/uL Hgb 9.8 L (13.0-17.0) g/dL Hct 29.9 L (39.6-50.0) % Immature Gran # 0.10 H (0.00-0.04) X 10*3/uL Neutrophils # 13.20 H (1.80-7.70) X 10*3/uL Lymphocytes # 0.21 L (0.90-5.00) X 10*3/uL Eosinophils # 0 L (0.04-0.35) X 10*3/uL APTT 59.0 H (22.0-30.0) sec Sodium 134 L (135-145) mmol/L Potassium 3.3 L (3.5-5.5) mmol/L Carbon Dioxide 20.8 L (21.6-31.8) mmol/L Anion Gap 14.20 H (4.00-12.00) mmol/L Glucose 139 H (70-110) mg/dL Calcium 8.2 L (8.7-10.3) mg/dL Total Bilirubin 5.9 H (0.3-1.2) mg/dL AST 328 H (14-35) U/L ALT 310 H (10-49) U/L Alkaline Phosphatase 347 H (41-126) U/L Albumin 3.7 L (3.8-4.9) g/dL Albumin/Globulin Ratio 1.48 L (1.60-3.17) Ratio 03/11/24 Range/Units 04:44 WBC (4.50-10.00) X 10*3/uL RBC (4.40-5.60) X 10*6/uL Hgb (13.0-17.0) g/dL Hct (39.6-50.0) % Immature Gran # (0.00-0.04) X 10*3/uL Neutrophils # (1.80-7.70) X 10*3/uL Lymphocytes # (0.90-5.00) X 10*3/uL Eosinophils # (0.04-0.35) X 10*3/uL APTT 53.6 H (22.0-30.0) sec Sodium (135-145) mmol/L Potassium (3.5-5.5) mmol/L Carbon Dioxide (21.6-31.8) mmol/L Anion Gap (4.00-12.00) mmol/L Glucose (70-110) mg/dL Calcium (8.7-10.3) mg/dL Total Bilirubin (0.3-1.2) mg/dL AST (14-35) U/L ALT (10-49) U/L Alkaline Phosphatase (41-126) U/L Albumin (3.8-4.9) g/dL Albumin/Globulin Ratio (1.60-3.17) Ratio Microbiology - Last 24 Hours (Table) 03/08/24 23:55 Blood Culture - Preliminary Blood 03/08/24 23:40 Blood Culture - Preliminary Blood
[2024-03-11] MEDS: HYDROmorphone 1 MG/ML 1 ML SYRINGE IVP PRN (18:39)
[2024-03-12 04:41] LABS: Basophils % (A) 0 %; Eosinophils # (A) 0.1 k/uL (0-0.7); Eosinophils % (A) 1 %; HCT 29.2 % (39.0-53.0); Hypochromasia Slight; Lymphocytes # (A) 0.3 k/uL (1.0-4.8); Lymphocytes % (A) 4 %; MCH 31.3 pg (25.0-35.0); Macrocytosis Slight; Mean Platelet Volume 8.9; Monocytes # (A) 0.4 k/uL (0-1.0); Monocytes % (A) 5 %; Neutrophils # (A) 7.3 k/uL (1.3-7.7); Neutrophils % (A) 90 %; Platelet Count 225 k/uL (150-450); RBC 2.89 m/uL (4.30-5.90); RDW 14.8 % (11.5-15.5); WBC 8.2 k/uL (3.8-10.6)
[2024-03-12 04:46] LABS: HGB 9.1 gm/dL (13.0-17.5)
[2024-03-12 06:12] VITALS: PULSE 84
[2024-03-12 06:37] LABS: ALT 268 U/L (4-49); AST 230 U/L (17-59); African American GFR (CKD) >90 (>60 ml/min/1.73 sqM); Albumin/Globulin Ratio 1.1; Alkaline Phosphatase 356 U/L (38-126); Anion Gap 12 mmol/L; Blood Urea Nitrogen 18 mg/dL (9-20); Calcium 8.1 mg/dL (8.4-10.2); Carbon Dioxide 16 mmol/L (22-30); Chloride 108 mmol/L (98-107); Globulin 2.7 g/dL; Glucose 117 mg/dL (74-99); Non-African American GFR(CKD) 81 (>60 ml/min/1.73 sqM); Potassium 3.3 mmol/L (3.5-5.1); Sodium 136 mmol/L (137-145); Total Bilirubin 8.9 mg/dL (0.2-1.3); Total Protein 5.7 g/dL (6.3-8.2)
[2024-03-12 08:26] VITALS: BP 94/53; RESP 18; TEMP 98.7
--- NOTE | 2024-03-12 10:19 | P.DS ---
Providers Date of admission: 03/08/24 23:10 Expected date of discharge: 03/12/24 Attending physician: Santo Castillo Consults: 03/08/24 23:08 Consult Physician Routine Consulting Provider: Cesar Bonner Jr Consult Reason/Comments: known Do you want consulting provider notified?: Yes 03/09/24 11:58 Consult Physician Routine Consulting Provider: Woody Ivey Consult Reason/Comments: recent cath., on brilenta, Do you want consulting provider notified?: Yes 03/09/24 14:29 Consult Physician Routine Consulting Provider: Zach Arrington Consult Reason/Comments: Right neck mass,BX favors T cell lymphoma Do you want consulting provider notified?: Yes Primary care physician: Cesar Bonner Assessment: patient recently underwent angioplasty with stent placement is currently on Brillinta for anticoagulation, patient passed a gallstone currently has choledocholithiasis currently requires a E CRP patient's being transferred today to [facility] for same General: [Patient awake, alert and oriented times 3. Patient in no acute distress.] HEENT: [PERRL. EOMI. No pharyngeal erythema or exudate.] Neck: [No adenopathy.] Cardiac: [Heart regular in rate and rhythm. No S3. No S4. No clicks, rubs. No murmur.] Lungs: [Clear to auscultation bilaterally.] Abdomen: [No mass. No organomegaly. significant right abdominal pain with concentration right upper quadrant complains of nausea and vomiting Extremes: [No edema no cyanosis no claudication normal pulses] :normal male genitalia Musculoskeletal: [No joint erythema, edema or tenderness.] Skin: [No rash.] Neurologic: [No lateralizing deficits. CN II - XII grossly intact.] Lymphatic: [No adenopathy.] Patient Condition at Discharge: Fair Plan - Discharge Summary New Discharge Prescriptions: No Action Aspirin EC [Ecotrin Low Dose] 81 mg PO DAILY hydroCHLOROthiazide [Hydrodiuril] 25 mg PO DAILY Atorvastatin [Lipitor] 20 mg PO HS amLODIPine [Norvasc] 5 mg PO HS Vit C/E/Zn/Coppr/Lutein/Zeaxan [Preservision Areds 2 Softgel] 2 cap PO DAILY Ticagrelor [Brilinta] 90 mg PO BID #180 tab Triamcinolone 0.025% Cream [Kenalog 0.025% Cream] 1 applic TOPICAL DAILY methocarbamoL [Robaxin] 500 mg PO DAILY Nitroglycerin Sl Tabs [Nitrostat] 0.4 mg SUBLINGUAL Q5M PRN #25 tab PRN Reason: Chest Pain Metoprolol Succinate (ER) [Toprol XL] 12.5 mg PO DAILY #45 tab Discharge Medication List Aspirin EC [Ecotrin Low Dose] 81 mg PO DAILY 11/25/16 [History] Atorvastatin [Lipitor] 20 mg PO HS 12/24/23 [History] Triamcinolone 0.025% Cream [Kenalog 0.025% Cream] 1 applic TOPICAL DAILY 12/24/23 [History] amLODIPine [Norvasc] 5 mg PO HS 12/24/23 [History] hydroCHLOROthiazide [Hydrodiuril] 25 mg PO DAILY 12/24/23 [History] Vit C/E/Zn/Coppr/Lutein/Zeaxan [Preservision Areds 2 Softgel] 2 cap PO DAILY 03/05/24 [History] methocarbamoL [Robaxin] 500 mg PO DAILY 03/05/24 [History] Metoprolol Succinate (ER) [Toprol XL] 12.5 mg PO DAILY #45 tab 03/07/24 [Rx] Nitroglycerin Sl Tabs [Nitrostat] 0.4 mg SUBLINGUAL Q5M PRN #25 tab 03/07/24 [Rx] Ticagrelor [Brilinta] 90 mg PO BID #180 tab 03/07/24 [Rx] Follow up Appointment(s)/Referral(s): Cesar Bonner Jr, [Primary Care Provider] - 1-2 days Discharge Disposition: OTHER INSTITUTION NOT DEFINED Care Plan Goals (MU): patient transfer to [facility] for further care assessment and treatment
--- NOTE | 2024-03-12 13:17 | P.PN ---
Subjective HISTORY OF PRESENT ILLNESS: This is an 83-year-old male patient of Dr. Ayala with past medical history of angina with chest tightness with exertion, hypertension, dyslipidemia, mild to moderate carotid atherosclerosis, and SVT2 brief runs, sick sinus syndrome, CAD s/p PCI OM1, macular degeneration, family history of coronary artery disease. We have been asked to evaluate the patient for chest pain. Patient was last s een in the office on September 03, 2023, at that time losartan was increased, advised weight loss and Holter monitor was ordered which has not been completed. patient had been seen 5 days ago for episodes of chest pain some of which were resolved with nitro. Therefore heart catheterization was performed which showed CAD involving the OM1 branch as well as mid LAD. Mid LAD appeared more moderate and therefore treated medically however iFR of OM1 was grossly abnormal and therefore a stent was placed. Patient unfortunately has been having more episodes of abdominal pain which she states is in fact similar to what he was having before. He is having more nausea and upset stomach. Therefore blood work performed which shows show elevated bilirubin and CT concerning for cholecystitis. Abdominal ultrasound does not show any significant gallstones. White blood cell increase that to 21 and currently concern of sepsis. 03/11/2024 Patient examined this morning at the bedside. Patient currently denies chest pain or pressure. He denies shortness of breath. He continues to report abdominal pain. He is receiving IV antibiotics. General surgery is following. WBC 13.95. patient with transaminitis this morning. AST 328. ALT 310. Total bilirubin 5.9. 03/12/2024 Patient examined this morning at the bedside. Patient currently denies chest pain or pressure. He denies shortness of breath. He continues to report abdominal pain. Patient is to be transferred to [facility] this morning. PHYSICAL EXAM: VITAL SIGNS: Reviewed. GENERAL: Well-developed in no acute distress. NECK: Supple. No JVD or thyromegaly LUNGS: Respirations even and unlabored. Lungs essentially clear to auscultation bilaterally. HEART: Regular rate and rhythm. S1 and S2 heard. EXTREMITIES: Normal range of motion. No clubbing or cyanosis. Peripheral pulse s intact. No lower extremity edema ASSESSMENT: CAD status post PCI of OM1 acute cholecystitis Hypertension Dyslipidemia Carotid atherosclerosis, mild to moderate SVT2 brief runs Sick sinus syndrome Family history of coronary artery disease hyperbilirubinemia Transaminitis PLAN: Patients Brilinta has been placed on hold. He remains on aspirin 81 mg daily. Continue IV heparin in the interim. Patient to be transferred to [facility] this morning Nurse practitioner note has been reviewed by physician. Signing provider agrees with the documented findings, assessment, and plan of care. Objective - Vital Signs Vital signs: Vital Signs Temp 98.7 F 03/12/24 07:50 Pulse 84 03/12/24 07:50 Resp 18 03/12/24 07:50 BP 94/53 03/12/24 07:50 Pulse Ox 95 03/12/24 07:50 FiO2 Intake & Output 03/11/24 03/12/24 03/12/24 18:59 06:59 18:59 Intake Total 0 231.139 189.463 Output Total 1050 Balance 0 -818.861 189.463 Intake: Intake, IV Titration 231.139 189.463 Amount Heparin Sod,Pork in 0.45% 231.139 189.463 NaCl 25,000 unit In 0.45 % NaCl 1 250ml.bag @ 18 UNITS/KG/HR 17.146 mls/hr IV .[id number] KALE Rx#: [id number] Oral 0 Output: Urine 1050 Other: Voiding Method Toilet Urinal Urinal # Voids 3 1 - Labs CBC & Chem 7: 03/12/24 04:16 03/12/24 04:16 Labs: Abnormal Lab Results - Last 24 Hours (Table) 03/12/24 03/12/24 03/12/24 Range/Units 04:16 04:16 04:26 RBC 2.89 L (4.30-5.90) m/uL Hgb 9.1 L D (13.0-17.5) gm/dL Hct 29.2 L (39.0-53.0) % MCV 101.0 H D (80.0-100.0) fL Lymphocytes # 0.3 L (1.0-4.8) k/uL APTT 56.5 H (22.0-30.0) sec Sodium 136 L (137-145) mmol/L Potassium 3.3 L (3.5-5.1) mmol/L Chloride 108 H (98-107) mmol/L Carbon Dioxide 16 L (22-30) mmol/L Glucose 117 H (74-99) mg/dL Calcium 8.1 L (8.4-10.2) mg/dL Total Bilirubin 8.9 H (0.2-1.3) mg/dL AST 230 H (17-59) U/L ALT 268 H (4-49) U/L Alkaline Phosphatase 356 H (38-126) U/L Total Protein 5.7 L (6.3-8.2) g/dL Albumin 3.0 L (3.5-5.0) g/dL Microbiology - Last 24 Hours (Table) 03/08/24 23:55 Blood Culture - Preliminary Blood 03/08/24 23:40 Blood Culture - Preliminary Blood
== END 2024-03-12 11:20 | disposition short-term general hospital (02) | DRG 445 ==
LOC: EC 19:27 → 6NMEDSUR 23:09 → OBSVTOIN 23:10 → 6NMEDSUR 03-09 00:04
PROVIDERS: ADMIT Surgery; ATTEND Surgery
DX: K80.42 Calculus of bile duct with acute cholecystitis without obstruction (principal); C86.5 Angioimmunoblastic T-cell lymphoma; K82.1 Hydrops of gallbladder; I47.10 Supraventricular tachycardia, unspecified; I49.5 Sick sinus syndrome; I10 Essential (primary) hypertension; I65.29 Occlusion and stenosis of unspecified carotid artery; E78.5 Hyperlipidemia, unspecified; E87.6 Hypokalemia; R74.01 Elevation of levels of liver transaminase levels; H35.30 Unspecified macular degeneration; I25.10 Atherosclerotic heart disease of native coronary artery without angina pectoris; Z79.82 Long term (current) use of aspirin; Z79.02 Long term (current) use of antithrombotics/antiplatelets; Z79.899 Other long term (current) drug therapy; Z95.5 Presence of coronary angioplasty implant and graft; Z87.891 Personal history of nicotine dependence; Z86.14 Personal history of Methicillin resistant Staphylococcus aureus infection
CPT/HCPCS: 36415; 71046; 71275; 74177; 76705; 80053; 83735; 84484; 85025; 85610; 85730; 87040; 93005; 96361; 96365; 96366; 96367; 96375; 96376; 99285

== ENCOUNTER → 2025-01-31 | Outpatient (CLI) | payer MEDICARE ==
[2025-01-31 15:06] LABS: Basophils # (A) 0.04 X 10*3/uL (0.00-0.10); Basophils % (A) 1.3 %; Eosinophils # (A) 0.04 X 10*3/uL (0.04-0.35); Eosinophils % (A) 1.3 %; HCT 37.5 % (39.6-50.0); HGB 12.2 g/dL (13.0-17.0); Lymphocytes # (A) 0.54 X 10*3/uL (0.90-5.00); MCH 31.4 pg (27.0-32.0); MCHC 32.5 g/dL (32.0-37.0); MCV 96.4 FL (80.0-97.0); Mean Platelet Volume 11.7 FL (9.5-12.2); Monocytes # (A) 0.24 X 10*3/uL (0.20-1.00); NRBC Per 100 WBC 0 X 10*3/uL (0.00-0.01); Neutrophils # (A) 2.12 X 10*3/uL (1.80-7.70); Neutrophils % (A) 70.7 %; Platelet Count 176 X 10*3/uL (140-440); RBC 3.89 X 10*6/uL (4.40-5.60); RDW 15.2 % (11.5-14.5)
[2025-01-31 15:32] LABS: ALT 38 U/L (10-49); AST 30 U/L (14-35); Albumin 4.1 g/dL (3.8-4.9); Albumin/Globulin Ratio 1.52 Ratio (1.60-3.17); Alkaline Phosphatase 113 U/L (41-126); Blood Urea Nitrogen 7.2 mg/dL (9.0-27.0); Calcium 9.5 mg/dL (8.7-10.3); Carbon Dioxide 23.2 mmol/L (21.6-31.8); Chloride 103 mmol/L (96-109); Globulin 2.7 g/dL (1.6-3.3); Glucose 228 mg/dL (70-110); LDL Cholesterol,Calculated 80.4 mg/dL (0.0-131.0); Magnesium 1.8 mg/dL (1.5-2.4); Potassium 4.4 mmol/L (3.5-5.5); Sodium 138 mmol/L (135-145); Total Bilirubin 0.5 mg/dL (0.3-1.2); Total Protein 6.8 g/dL (6.2-8.2)
== END | disposition home or self-care (01) ==
LOC: LABWHC1 08:10
PROVIDERS: ATTEND Internal Medicine Interventional Cardiology
DX: I10 Essential (primary) hypertension (principal); I25.10 Atherosclerotic heart disease of native coronary artery without angina pectoris
CPT/HCPCS: 36415; 80053; 80061; 83721; 83735; 84443; 85025